=== PATIENT | female | born 1945 | race Caucasian/White ===

== ENCOUNTER 2016-09-24 11:32 | Observation (INO) | payer MEDICARE, OTHER ==
[2016-09-24] MEDS ORDERED: Meclizine TAB* 12.5 MG PO ONE (12:11)
[2016-09-24 12:34] LABS: Hematocrit 41 % (35-47); Hemoglobin 13.1 g/dl (12.0-16.0); Mean Corpuscular HGB Conc 32 g/dl (31-36); Mean Corpuscular Hemoglobin 24 pg (27-31); Mean Corpuscular Volume 75 fL (80-97); Mean Platelet Volume 9 um3 (7.4-10.4); Red Blood Count 5.37 10^6/ul (4.0-5.4); Red Cell Distribution Width 16 % (10.5-15); White Blood Count 7.1 10^3/ul (3.5-10.8)
[2016-09-24 12:36] LABS: Urine Bilirubin Negative (Negative); Urine Glucose Negative (Negative); Urine Nitrite Negative (Negative)
[2016-09-24] MEDS: NS 0.9% 1000 ML* 2,000 ML IV ONE (12:38)
[2016-09-24 12:46] LABS: Albumin 4.7 g/dL (3.2-5.2); BUN/Creatinine Ratio 20.5 (8-20); C Reactive Protein 11.06 mg/L (< 5.00); Calcium 9.7 mg/dL (8.6-10.3); EGFR African American 93.1 (>60); EGFR Non-African American 72.4 (>60); Globulin 2.8 g/dL (2-4); Magnesium 2.2 mg/dL (1.9-2.7); Potassium 4.3 mmol/L (3.5-5.0); Total Bilirubin 0.4 mg/dL (0.2-1.0); Total Protein 7.5 g/dL (6.4-8.9)
--- NOTE | 2016-09-24 12:47 | RAD ---
INDICATION: Left visual field loss, evaluate for CVA and hemorrhage. COMPARISON: Comparison is made with a prior CT of the brain from April 07, 2004. TECHNIQUE: Contiguous axial sections of the brain were obtained from the skull base to the vertex without contrast. FINDINGS: The ventricles, cisterns and sulci are enlarged consistent with diffuse atrophy. There are multiple focal areas of decreased density in the subcortical and periventricular white matter suggestive of moderate to severe chronic small vessel ischemic changes. There is no evidence for hemorrhage. No significant focal osseous abnormality is seen. The visualized portion of the paranasal sinuses and mastoid air cells appear clear. IMPRESSION: 1. NO EVIDENCE FOR GROSS ACUTE INFARCT, MASS EFFECT OR HEMORRHAGE. 2. ATROPHY AND FINDINGS SUGGESTIVE OF MODERATE TO SEVERE CHRONIC SMALL VESSEL ISCHEMIC CHANGES.
[2016-09-24 12:55] LABS: TSH (Thyroid Stimulating Horm) 0.95 mcIU/mL (0.34-5.60)
--- NOTE | 2016-09-24 12:57 | RAD ---
INDICATION: Cough shortness of breath. COMPARISON: Comparison is made with a prior study from July 03, 2014. TECHNIQUE: A portable view of the chest was obtained. FINDINGS: There is a dual-chamber transvenous pacemaker present. The patient is status post sternotomy and cardiac valve surgery. The heart is within normal limits in size for this portable exam. The lungs are underinflated. There is a small focal infiltrate at the right lung base. No pleural effusion is seen. IMPRESSION: SMALL RIGHT BASILAR INFILTRATE.
[2016-09-24] MEDS ORDERED: Levofloxacin 750 MG IVPREMIX(* 750 MG/150 ML BAG IVPB ONE (13:28)
[2016-09-24] MEDS ORDERED: Azithromycin IV(*) 500 MG in NS 0.9% 250 ML* 250 ML IVPB ONE (14:11)
[2016-09-24] MEDS ORDERED: cefTRIAXone(*) 1 GM in NS 0.9% 50 ML* 50 ML IVPB ONE (14:11)
[2016-09-24] MEDS ORDERED: Temazepam CAP* 15 MG PO PRN (14:53)
[2016-09-24] MEDS ORDERED: Albuterol/Ipratropium NEB.SOL* Albuterol 2.5 MG/Ipratropium 0.5 MG 3 ML INH PRN (14:53)
[2016-09-24] MEDS ORDERED: Acetaminophen TAB* 325 MG PO PRN (14:53)
[2016-09-24] MEDS ORDERED: methylPREDNISolone SOD SUCC* 125 MG 2 ML VIAL IV ONE (14:55)
[2016-09-24] MEDS ORDERED: Levalbuterol 1.25MG/0.5ML NEB INH PRN (14:59)
--- NOTE | 2016-09-24 15:37 | ED ---
Binta Sheldon Rebecca, scribed for Bowen Thayer MD on 09/24/16 at 1202 . Dizziness - HPI Summary HPI Summary: Pt is a 71 y/o F BIBA who presents to ED c/o dizziness. Dizziness began suddenly this morning at 1000 while standing up and has been constant since onset. Dizziness characterized as the room spinning. Sx aggravated by sitting up and alleviated by nothing. Additionally c/o blurred vision/vision loss in the L eye, left JVD and unsteady gait. C/o diaphoresis, cough, wheezing, rhinorrhea and melena. Reports SOB characterized as moderate dyspnea at rest. Denies CP, slurred speech, weakness in any extremities, nausea and MONACO. Does not experience chest tightness or pressure when walking. Is on Pradaxa (blood thinner). PMHx COPD, breast CA, does not have a port in place. No PMHx TIA, CHF. FHx TIA. Dobby Loom Fixer is Dr. Alegria, PCP is Dr. Anand and Dr. Cisneros is oncologist. - History Of Current Complaint Chief Complaint: EDDizziness Stated Complaint: DIZZY, Time Seen by Provider: 09/24/16 11:49 Hx Obtained From: Patient Onset/Duration: Suddenly Timing: Constant Severity Initially: Moderate Severity Currently: Moderate Character: Room Spinning Aggravating Factor(s): Supine To Erect, Other - Standing Alleviating Factor(s): Nothing Associated Signs And Symptoms: Positive: Diaphoresis, SOB - dyspnea at rest, Unsteady Gait, Visual Changes - blurred vision/vision los in the L eye, Other: - Cough, wheezing, rhinorrhea, melena, L JVD, confusion; Denies wekaness and MONACO. Negative: Nausea, Chest Pain, Slurred Speech - Allergies/Home Medications Allergies/Adverse Reactions: Allergies Allergy/AdvReac Type Severity Reaction Status Date / Time Shellfish Allergy Allergy Severe Swelling Verified 09/24/16 12:11 Of Face,Lips,& Throat Warfarin [From Coumadin] Allergy Intermediate Hives Verified 09/24/16 12:11 Sulfa Drugs Allergy Mild Dizziness Verified 09/24/16 12:11 Levofloxacin [From Levaquin] Allergy Unknown Verified 09/24/16 13:46 Reaction Details NSAIDS Allergy Severe See Comment Uncoded 09/24/16 12:11 Adhesive Tape Allergy Mild Rash Uncoded 09/24/16 12:11 PROPANOLOL Allergy Unknown Uncoded 09/24/16 12:11 Reaction Details Home Medications: Home Medications Diltiazem HCl [Diltiazem HCl ER] 240 mg PO BID 09/24/16 [History Confirmed 09/24] Sertraline* [Zoloft*] 50 mg PO DAILY 09/24/16 [History Confirmed 09/24/16] PMH/Surg Hx/FS Hx/Imm Hx Endocrine/Hematology History: Reports: Hx Anticoagulant Therapy, Hx Anemia Denies: Hx Diabetes, Hx Thyroid Disease Cardiovascular History: Reports: Hx Auto Implanted Cardiovert Defib, Hx Congestive Heart Failure, Hx Hypertension, Hx Pacemaker/ICD, Hx Valvular Heart Disease - hx mitral valve replacement, Other Cardiovascular Problems/Disorders - mitral valve prolapse Denies: Hx Coronary Artery Disease Respiratory History: Reports: Hx Chronic Obstructive Pulmonary Disease (COPD), Hx Pneumonia, Hx Seasonal Allergies, Hx Sleep Apnea GI History: Reports: Hx Gastroesophageal Reflux Disease, Hx Hiatal Hernia, Other GI Disorders - hemorrhoids History: Reports: Hx Acute Renal Failure, Hx Renal Disease Musculoskeletal History: Reports: Hx Osteoporosis, Hx Scoliosis, Other Musculoskeletal History - plate in right ankle Sensory History: Reports: Hx Cataracts, Hx Contacts or Glasses Denies: Hx Glaucoma Opthamlomology History: Reports: Hx Cataracts, Hx Contacts or Glasses Denies: Hx Glaucoma Psychiatric History: Reports: Hx Anxiety, Hx Depression - Cancer History Cancer Type, Location and Year: BREAST CA s/p mastectomy Hx Chemotherapy: No Hx Radiation Therapy: No - Surgical History Surgery Procedure, Year, and Place: pace maker 2012, cataract x2, tonsilectomy. open heart surgery mitral valve replacement, cardiac ablations 2010. mastectomy 2010 (left side). lymphectomy. PLATE IN R ANKLE Hx Anesthesia Reactions: No - Immunization History Date of Tetanus Vaccine: unk Date of Influenza Vaccine: 2011 Infectious Disease History: No Infectious Disease History: Reports: Hx Clostridium Difficile - active CDT, Hx Hepatitis - CHILD Denies: Traveled Outside the [place] in Last 30 Days - Family History Known Family History: Positive: Other - TIA - Social History Alcohol Use: None Substance Use Type: Reports: None Smoking Status (MU): Former Smoker Type: Cigarettes Amount Used/How Often: 2 PPD Length of Time of Smoking/Using Tobacco: 15 years Have You Smoked in the Last Year: No Review of Systems Positive: Skin Diaphoresis Positive: Blurred Vision - blurred vision/vision loss in the L eye Positive: Nasal Discharge, Other - L JVD Negative: Chest Pain Positive: Shortness Of Breath - dyspnea at rest, Cough, Other - Wheezing Negative: Nausea Positive: other - Melena Positive: Other Neurological: Other - Dizziness (room spinning), unsteady gait Negative: Headache, Weakness, Slurred Speech All Other Systems Reviewed And Are Negative: Yes Physical Exam - Summary Physical Exam Summary: The patient is well-nourished in no acute distress and in no acute pain. The skin is warm and dry and skin color reflects adequate perfusion. Good skin turgor HEENT: The head is normocephalic and atraumatic. The pupils are equal and reactive and EOMI. Positive horizontal nystagmus. Gross visual acuity intact. The conjunctivae are clear and without drainage. Nares are patent and without drainage. Mouth reveals dry mucous membranes and the throat is without erythema and exudate. The external ears are intact. The ear canals are patent and without drainage. The tympanic membranes are intact. Neck is supple with full range of motion and non-tender. There are no carotid bruits. There is no neck vein distension. Respiratory: Chest is non-tender. Lungs are clear to auscultation and breath sounds are symmetrical and equal. Cardiovascular: Hear is regular rhythm and bradycardic. There is no murmur or rub auscultated. There is no peripheral edema and pulses are symmetrical and equal. Abdomen: The abdomen is soft and non-tender. There are normal bowel sounds heard in all four quadrants and there is no organomegaly palpated. Musculoskeletal: There is no back pain noted. Extremities are non-tender with full range of motion. There is good capillary refill. There is no peripheral edema or calf tenderness elicited. Neurological: When she sat up, she experienced vertigo. Patient is alert and oriented to person, place and time. The patient has symmetrical motor strength in all four extremities. Cranial nerves are grossly intact. Deep tendon reflexes are symmetrical and equal in all four extremities. No pronator drift. Finger to nose intact, heel to walsh intact. No facial droop. Negative Babinski. Good motor strength bilaterally in upper and lower extremities. No decreased sensation. Psychiatric: The patient has an appropriate affect and does not exhibit any anxiety or depression. Triage Information Reviewed: Yes Vital Signs On Initial Exam: Initial Vitals Temp Pulse Resp BP Pulse Ox 99.3 F 60 38 182/51 87 09/24/16 11:43 09/24/16 11:43 09/24/16 11:43 09/24/16 11:43 09/24/16 11:43 Vital Signs Reviewed: Yes Diagnostics - Vital Signs Vital Signs Temp Pulse Resp BP Pulse Ox 09/24/16 11:49 60 18 98 09/24/16 11:43 99.3 F 60 38 182/51 87 - Laboratory Lab Results: Lab Results 09/24/16 09/24/16 09/24/16 Range/Units 11:50 11:50 11:50 WBC 7.1 (3.5-10.8) 10^3/ul RBC 5.37 (4.0-5.4) 10^6/ul Hgb 13.1 (12.0-16.0) g/dl Hct 41 (35-47) % MCV 75 L (80-97) fL MCH 24 L (27-31) pg MCHC 32 (31-36) g/dl RDW 16 H (10.5-15) % Plt Count 181 (150-450) 10^3/ul MPV 9 (7.4-10.4) um3 Neut % (Auto) 80.0 (38-83) % Lymph % (Auto) 10.5 L (25-47) % Sibley % (Auto) 6.9 (1-9) % Eos % (Auto) 1.8 (0-6) % Baso % (Auto) 0.8 (0-2) % Absolute Neuts (auto) 5.7 (1.5-7.7) 10^3/ul Absolute Lymphs (auto) 0.7 L (1.0-4.8) 10^3/ul Absolute Monos (auto) 0.5 (0-0.8) 10^3/ul Absolute Eos (auto) 0.1 (0-0.6) 10^3/ul Absolute Basos (auto) 0.1 (0-0.2) 10^3/ul Absolute Nucleated RBC 0.01 10^3/ul Nucleated RBC % 0.2 INR (Anticoag Therapy) (0.89-1.11) APTT (26.0-36.3) seconds Sodium 139 (133-145) mmol/L Potassium 4.3 (3.5-5.0) mmol/L Chloride 104 (101-111) mmol/L Carbon Dioxide 27 (22-32) mmol/L Anion Gap 8 (2-11) mmol/L BUN 16 (6-24) mg/dL Creatinine 0.78 (0.51-0.95) mg/dL Est GFR ( Amer) 93.1 (>60) Est GFR (Non-Af Amer) 72.4 (>60) BUN/Creatinine Ratio 20.5 H (8-20) Glucose 105 H (70-100) mg/dL Lactic Acid (0.5-2.0) mmol/L Calcium 9.7 (8.6-10.3) mg/dL Magnesium 2.2 (1.9-2.7) mg/dL Total Bilirubin 0.40 (0.2-1.0) mg/dL AST 22 (13-39) U/L ALT 22 (7-52) U/L Alkaline Phosphatase 99 (34-104) U/L Total Creatine Kinase 40 (10-223) U/L Troponin I 0.00 (<0.04) ng/mL C-Reactive Protein 11.06 H (< 5.00) mg/L B-Natriuretic Peptide ( - 100) pg/mL Total Protein 7.5 (6.4-8.9) g/dL Albumin 4.7 (3.2-5.2) g/dL Globulin 2.8 (2-4) g/dL Albumin/Globulin Ratio 1.7 (1-3) TSH 0.95 (0.34-5.60) mcIU/mL Urine Color Colorless Urine Appearance Clear Urine pH 5.0 (5-9) Ur Specific [place] 1.004 L (1.010-1.030) Urine Protein Negative (Negative) Urine Ketones Negative (Negative) Urine Blood Negative (Negative) Urine Nitrate Negative (Negative) Urine Bilirubin Negative (Negative) Urine Urobilinogen Negative (Negative) Ur Leukocyte Esterase Negative (Negative) Urine Glucose Negative (Negative) 09/24/16 09/24/16 09/24/16 Range/Units 11:50 11:50 11:50 WBC (3.5-10.8) 10^3/ul RBC (4.0-5.4) 10^6/ul Hgb (12.0-16.0) g/dl Hct (35-47) % MCV (80-97) fL MCH (27-31) pg MCHC (31-36) g/dl RDW (10.5-15) % Plt Count (150-450) 10^3/ul MPV (7.4-10.4) um3 Neut % (Auto) (38-83) % Lymph % (Auto) (25-47) % Sibley % (Auto) (1-9) % Eos % (Auto) (0-6) % Baso % (Auto) (0-2) % Absolute Neuts (auto) (1.5-7.7) 10^3/ul Absolute Lymphs (auto) (1.0-4.8) 10^3/ul Absolute Monos (auto) (0-0.8) 10^3/ul Absolute Eos (auto) (0-0.6) 10^3/ul Absolute Basos (auto) (0-0.2) 10^3/ul Absolute Nucleated RBC 10^3/ul Nucleated RBC % INR (Anticoag Therapy) 1.24 H (0.89-1.11) APTT 61.6 H (26.0-36.3) seconds Sodium (133-145) mmol/L Potassium (3.5-5.0) mmol/L Chloride (101-111) mmol/L Carbon Dioxide (22-32) mmol/L Anion Gap (2-11) mmol/L BUN (6-24) mg/dL Creatinine (0.51-0.95) mg/dL Est GFR ( Amer) (>60) Est GFR (Non-Af Amer) (>60) BUN/Creatinine Ratio (8-20) Glucose (70-100) mg/dL Lactic Acid 1.1 (0.5-2.0) mmol/L Calcium (8.6-10.3) mg/dL Magnesium (1.9-2.7) mg/dL Total Bilirubin (0.2-1.0) mg/dL AST (13-39) U/L ALT (7-52) U/L Alkaline Phosphatase (34-104) U/L Total Creatine Kinase (10-223) U/L Troponin I (<0.04) ng/mL C-Reactive Protein (< 5.00) mg/L B-Natriuretic Peptide 85 ( - 100) pg/mL Total Protein (6.4-8.9) g/dL Albumin (3.2-5.2) g/dL Globulin (2-4) g/dL Albumin/Globulin Ratio (1-3) TSH (0.34-5.60) mcIU/mL Urine Color Urine Appearance Urine pH (5-9) Ur Specific [place] (1.010-1.030) Urine Protein (Negative) Urine Ketones (Negative) Urine Blood (Negative) Urine Nitrate (Negative) Urine Bilirubin (Negative) Urine Urobilinogen (Negative) Ur Leukocyte Esterase (Negative) Urine Glucose (Negative) Result Diagrams: 09/24/16 11:50 09/24/16 11:50 Lab Statement: Any lab studies that have been ordered have been reviewed, and results considered in the medical decision making process. - Radiology CXR Radiology Interpretation Completed By: Radiologist - SMALL RIGHT BASILAR INFILTRATE. - CT Brain CT CT Interpretation Completed By: Radiologist - IMPRESSION: 1. NO EVIDENCE FOR GROSS ACUTE INFARCT, MASS EFFECT OR HEMORRHAGE. 2. ATROPHY AND FINDINGS SUGGESTIVE OF MODERATE TO SEVERE CHRONIC SMALL VESSEL ISCHEMIC CHANGES. - EKG 1154 Cardiac Rate: Bradycardia - 60 bpm EKG Rhythm: Sinus Rhythm ST Segment: Normal - No ST elevations EKG Interpretation: No STEMI National Institutes Of Health - NIH Scale Level of Consciousness: Alert/Keenly Responsive Ask Patient the Month and His/Her Age: Both Correct Ask Pt to Open/Close Eyes and Rd Scientist/Release Non-Paretic Hand: Both Correctly Best Gaze (Only Horizontal Eye Movement): Normal Visual Field Testing: No Visual Loss Facial Paresis-Pt to Smile & Close Eyes or Grimace Symmetry: Normal/Symmetrical Motor Function - Right Arm: No Drift-Holds 10 Seconds Motor Function - Left Arm: No Drift-Holds 10 Seconds Motor Function - Right Leg: No Drift-Holds 10 Seconds Motor Function - Left Leg: No Drift-Holds 10 Seconds Limb Ataxia-Must be out of Proportion to Weakness Present: Absent Sensory (Use Pinprick to Test Arms/Legs/Trunk/Face): Normal Best Language (Describe Picture, Name Items): No Aphasia Dysarthria (Read Several Words): Normal Extinction and Inattention: No Abnormality Total Score: 0 Dizzy Course/Dx - Course Assessment/Plan: Pt is a 71 y/o F with a CC of dizziness since 1000 this morning , characterized as room spinning. Additionally c/o blurred vision/vision loss in the L eye, left JVD and unsteady gait. C/o confusion, diaphoresis, cough, wheezing, rhinorrhea and melena. Reports SOB characterized as moderate dyspnea at rest. Denies CP, slurred speech, weakness in any extremities, nausea and MONACO. Does not experience chest tightness or pressure when walking. Is on Pradaxa ( blood thinner). NIH stroke scale score of 0. Brain CT reveals no acute findings. CXR reveals small right basilar infiltrate. EKG reveals no STEMI. CRP 11.06. Discussed care of pt with Dr. Cardoza, hospitalist, who accepts pt for admission. Pt will be admitted with dx of right lower lobe PNA, dizziness, dehydration and TIA. - Diagnoses Differential Diagnosis/HQI/PQRI: CVA, Hypovolemia, Metabolic Abnormality, Transient Ischemic Attack, Other - pneumonia, vertigo Provider Diagnoses: Right lower lobe pneumonia, Vertigo, Dehydration, TIA (transient ischemic attack) - Provider Notifications Discussed Care Of Patient with: Dr. Cardoza, hospitalist, who accepts pt for admission. Time Discussed With Above Provider: 13:32 Discharge - Discharge Plan Condition: Good Disposition: ADMITTED TO [facility] documentation as recorded by the Binta becerra Rebecca accurately reflects the service I personally performed and the decisions made by me, Bowen Thayer MD.
[2016-09-24] MEDS: Diazepam TAB(*) 5 MG PO PRN ×2 (15:39→21:49)
[2016-09-24] MEDS: Furosemide TAB* 20 MG PO SCH (15:39)
[2016-09-24] MEDS: CMCS - Dabigatran CAP(NF) 150 MG CAP PO SCH (20:12)
[2016-09-24] MEDS: Diltiazem CD CAP* 240 MG PO SCH (20:13)
[2016-09-24] MEDS: DOXYcycline CAP(*) 100 MG PO SCH (20:14)
[2016-09-24] MEDS: Dofetilide CAP* 250 MCG PO SCH (20:14)
[2016-09-24] MEDS: Potassium Chlor TAB* 20 MEQ TAB.ER PO SCH (20:15)
[2016-09-24] MEDS: Magnesium Oxide TAB* 400 MG PO SCH (20:15)
[2016-09-24] MEDS ORDERED: Magnesium Oxide TAB* 400 MG PO SCH (21:00)
[2016-09-24] MEDS: Mometasone/Formoter 200/5 MDI INH SCH (21:07)
--- NOTE | 2016-09-25 00:16 | HP ---
HISTORY AND PHYSICAL:* ADDENDUM: MEDICATIONS: 1. Klor-Con 20 mEq 2 tabs twice a day, which is a total of 40 mEq twice a day. 2. The patient is also on mag ox 400 mg twice a day. [id number]/[facility] #: [id number] [facility]
--- NOTE | 2016-09-25 03:32 | HP ---
CC: Dr. Alegria; Dr. Ruiz HISTORY AND PHYSICAL: DATE OF ADMISSION: 09/24/16 PRIMARY CARE PROVIDER: Laurent Ruiz MD REPAIRER KILN CAR: Vikash Alegria DO CHIEF COMPLAINT: Dizziness. HISTORY OF PRESENT ILLNESS: Renetta Mora is a 71-year-old female with a history of paroxysmal a trial fibrillation, on Pradaxa, status post bioprosthetic valve replacement in the past who presents complaining of dizziness that occurred when she was standing up from a toilet seat. The patient st ated she has a history of oxygen-dependent COPD and uses 3 L at baseline. For the past several day s, she has been having nonproductive cough and she started using her nebulizer for wheezing, which s he usually does not do. Today, when she got up from the toilet seat, she started getting dizzy and was dizzy when walking, but better when she stopped moving. She stated that it felt like she was "o n a ship." It resolved by the time I saw the patient for evaluation. In addition to that, the patient stated that she has macular degeneration on the right eye and has h ad problems with blurry vision in the left eye. She stated that the blurry vision would be intermit tent in the past 2 months and despite her seeing research assoc, nothing was discovered. She state d that the blurry vision got worse in the left eye when she developed the dizziness and now it is sl ightly improved. The patient's chest x-ray showed possibility of right lower lobe infiltrate. Her CRP is mildly elev ated. She is wheezing on exam, noted to be in COPD exacerbation. Her neuro exam is nonfocal. She i s going to be placed on overnight observation with a diagnosis of dizziness. PAST MEDICAL AND SURGICAL HISTORY: 1. Status post bioprosthetic mitral valve replacement in August 2010. 2. History of severe pulmonary hypertension. 3. History of COPD, on oxygen at 3 L. 4. History of symptomatic paroxysmal atrial fibrillation. She still continues to occasionally get palpitations. The patient has 2 prior ablation attempts and currently is being kept in the rhythm w ith Tikosyn. 5. History of anxiety. 6. Gastroesophageal reflux disease. 7. An episode of C. diff colitis in the past. 8. History of breast cancer, status post left-sided mastectomy. 9. History of ankle surgery, ORIF of the right ankle. 10. Status post pacemaker placement with recent pacemaker review stating possibility of undersensin g atrially. The patient still has episodes of atrial fibrillation when reviewing her pacer interrog ation. 11. History of hysterectomy. MEDICATIONS: Include: 1. Cardizem CD 240 mg twice a day. 2. Diazepam 5 mg 2 times a day. 3. Protonix 40 mg daily. 4. Furosemide 60 mg daily. 5. Spiriva inhaler 1 inhalation daily. 6. Advair 500/50 1 puff b.i.d. 7. Oxygen at 3 L. 8. Prednisone 5 mg tablet every other day. 9. Xopenex nebulizer on a p.r.n. basis. 10. BiPAP at night. 11. Tikosyn 250 mcg every 12 hours. 12. Sertraline 50 mg every day. 13. Pradaxa 150 mg b.i.d. ALLERGIES: The patient has multiple allergies and sensitivities to medication and those include NON STEROIDAL ANTIINFLAMMATORY MEDICATIONS, SULFA, COUMADIN, TAPE, PROPAFENONE, AMIODARONE, LEVAQUIN, an d FLAGYL. FAMILY HISTORY: Mother with history of breast cancer. SOCIAL HISTORY: The patient has a history of 68-[id number]-lwan smoking, quit many years ago. She denies any alcohol or drug use. She lives with a friend. Her surrogate decision maker is her daughter, Chay wagoner. REVIEW OF SYSTEMS: Please see history of present illness. In addition to the above mentioned, the patient denies any chest pain. She ambulates without problems at baseline and independently. Curre ntly, she denies any dizziness. All the remaining 14 systems were reviewed with the patient and were otherwise negative. PHYSICAL EXAMINATION GENERAL: The patient is a very pleasant 71-year-old female who is not in acute distress. The patie nt is slightly tremulous and anxious. The patient is alert and oriented x3. VITAL SIGNS: Blood pressure of 148/45, the patient was not orthostatic when checking the patient's blood pressures for orthostatic hypotension; pulse of 60 and regular; respiratory rate 21; oxygen sa turation 99% on 2 L of oxygen nasal cannula; and temperature 99.3. HEENT: Head: Atraumatic, normocephalic. Eyes: Pupils equal, reactive to light and accommodation. Oropharynx clear. Mucosa moist. NECK: Supple. No JVD. No bruit bilaterally. RESPIRATORY: Distant breath sounds bilaterally with scant wheezes in bilateral lower and mid lung f ields. CARDIOVASCULAR: Regular rate and rhythm. No murmurs. ABDOMEN: Soft, nontender. Bowel sounds present in all 4 quadrants. EXTREMITIES: There is no edema. Pulses present 2+ bilaterally. No clubbing or cyanosis. NEUROLOGIC EVALUATION: The patient is slightly tremulous probably due to her chronic anxiety. She also missed a dose of Valium today. The patient is also a poor historian. Speech clear. Cranial n erves II through XII grossly intact. When evaluating visual higginbotham, the patient does not appear to have visual field deficit noted. She denies diplopia. There is no nystagmus on evaluation. Esieeh-ll-sgwa is not dysmetric bilaterally. There is no pronator drift. There is good hand data acquisition technician a nd good strength in bilateral upper extremities, it is 5/5. On evaluation of bilateral lower extremities, strength is 5/5. She has mildly ataxic wide gait, but as per her daughter who is watching the patient walk in front of me, that apparently is the patient 's baseline. Tygl-db-nbyv is not dysmetric bilaterally. Sensation is grossly intact. PSYCHIATRIC EVALUATION: Mildly anxious. No other abnormalities noted, pleasant and cooperative wit h evaluation. DIAGNOSTIC STUDIES/LAB DATA: White blood cell count of 7.1, hemoglobin of 13.1, hematocrit of 41, and platelets of 181. Sodium 139, potassium 4.3, chloride 104, carbon dioxide 27, BUN 16, and creatinine 0.78. Liver func tions were unremarkable. Troponin of 0. C-reactive protein of 11.06. TSH of 0.95. Urinalysis was unremarkable apart from low specific gravity of 1.004. Portable chest x-ray, impression: "Showed small right basilar infiltrate." Brain CT, impression: "No evidence of gross acute infarct, mass effect, or hemorrhage. Atrophy and findings suggestive of yheupmnh-ef-[id number] chronic small vessel ischemic changes." The patient's EKG showed what appears to be underlying sinus rhythm with a heart rate of 60 beats pe r minute. It appears that the pacer may be undersensing, which is a known abnormality noted on the patient's prior pacemaker review on 09/21/16. ASSESSMENT AND PLAN: A 71-year-old female who complained of positional unsteadiness and dizziness t hat appeared to have resolved after a dose of meclizine in the emergency department. The patient al so has had exacerbation of her chronic obstructive pulmonary disease and had been treating with [facility]. There is evidence of right lower lobe infiltrate on the chest x-ray. In regards to the patient's dizziness, it appears to have been due to benign positional vertigo and resolved after meclizine dose. There is no evidence of focal neurologic deficits. The patient does complain still of left eye problems, but apparently that had been intermittently ongoing for the or st 2 months. She does have history of macular degeneration on the right eye and recommendations for the patient to see her primary research assoc after discharge. Nevertheless, the patient is going to be placed on telemetry monitored bed with neuro checks every 2 hours. In regards to the patient's pneumonia, the patient is going to be placed on ceftriaxone and on doxyc ycline. She has no marked leukocytosis and is not toxic appearing. In regards to the patient's chronic obstructive pulmonary disease exacerbation, the patient is going to be placed on parenteral steroids today and started on prednisone tomorrow at an increased dose o f 50 mg daily. In regards to history of paroxysmal atrial fibrillation, currently, it appears that her pacer is und ersensing, which was reported on the patient's pacemaker interrogation at the end of August. We will continue observing on telemetry monitored bed. She has not had any symptoms of chest pain to [facility] angina. We will continue Tikosyn and Cardizem for history of paroxysmal atrial fibrillation as previously. For DVT prophylaxis, the patient is at high risk and we will continue outpatient Pradaxa. Code status is full. TIME SPENT: Approximately 67 minutes was spent on admission of this patient, more than half that ti me was spent [id number] with the patient during the interview and physical exam. [id number]/[facility] #: [id number]
[2016-09-25 05:04] LABS: Hematocrit 35 % (35-47); Hemoglobin 11.5 g/dl (12.0-16.0); Mean Corpuscular HGB Conc 33 g/dl (31-36); Mean Corpuscular Hemoglobin 25 pg (27-31); Mean Corpuscular Volume 75 fL (80-97); Mean Platelet Volume 9 um3 (7.4-10.4); Red Blood Count 4.62 10^6/ul (4.0-5.4); Red Cell Distribution Width 17 % (10.5-15); White Blood Count 4.8 10^3/ul (3.5-10.8)
[2016-09-25 05:13] LABS: BUN/Creatinine Ratio 22.7 (8-20); Calcium 9.2 mg/dL (8.6-10.3); EGFR African American 97.4 (>60); EGFR Non-African American 75.7 (>60)
[2016-09-25] MEDS ORDERED: Omeprazole CAP* 20 MG PO SCH (07:30)
[2016-09-25 07:54] VITALS: BP 145/57
[2016-09-25] MEDS: CMCS - Dabigatran CAP(NF) 150 MG CAP PO SCH (08:40)
[2016-09-25] MEDS: Diltiazem CD CAP* 240 MG PO SCH (08:40)
[2016-09-25] MEDS: DOXYcycline CAP(*) 100 MG PO SCH (08:40)
[2016-09-25] MEDS: Potassium Chlor TAB* 20 MEQ TAB.ER PO SCH (08:40)
[2016-09-25] MEDS: Dofetilide CAP* 250 MCG PO SCH (08:41)
[2016-09-25] MEDS: Magnesium Oxide TAB* 400 MG PO SCH (08:41)
[2016-09-25] MEDS: Furosemide TAB* 20 MG PO SCH (08:45)
[2016-09-25] MEDS ORDERED: Sertraline* 50 MG TAB PO SCH (09:00)
[2016-09-25] MEDS ORDERED: predniSONE TAB* 20 MG PO SCH (09:00)
[2016-09-25] MEDS ORDERED: Spiriva Inhaler DEVICE* 1 EACH DEVICE ONE (09:00)
[2016-09-25] MEDS ORDERED: Tiotropium CAP.INH* CAP.INH/18 MCG INH SCH (09:00)
[2016-09-25] MEDS: Mometasone/Formoter 200/5 MDI INH SCH (10:13)
[2016-09-25] MEDS: Diazepam TAB(*) 5 MG PO PRN (11:01)
--- NOTE | 2016-09-25 13:21 | DS ---
CC: Dr. Ruiz; Dr. Vikash Alegria; Dr. Cisneros DISCHARGE SUMMARY: DATE OF ADMISSION: 09/24/16 DATE OF DISCHARGE: 09/25/16 PRIMARY CARE DOCTOR: Dr. Ruiz. DISCHARGE DIAGNOSES: 1. Chronic obstructive pulmonary disease exacerbation. 2. Right lower lobe pneumonia. 3. Dizziness, most likely benign positional vertigo. 4. Transient visual disturbance. SECONDARY DIAGNOSES: 1. History of paroxysmal atrial fibrillation, status post 2 attempted ablations in the past. The p atdayana still occasionally gets atrial fibrillation and is symptomatic when it happens. 2. Status post mitral valve replacement in 2010. 3. History of severe pulmonary hypertension. 4. History of chronic obstructive pulmonary disease, oxygen dependent at 3 L. 5. Anxiety. 6. Gastroesophageal reflux disease. 7. History of breast cancer, status post left-sided mastectomy. 8. History of open reduction and internal fixation of the right ankle. 9. Pacemaker placement. 10. Hysterectomy. MEDICATIONS AT DISCHARGE: Unchanged from admission apart from increasing the patient's dose of predn isone to a taper. The patient is also going to be placed on 2 antibiotics orally for her pneumonia. 1. Prednisone 20 mg tablet, the patient used to take 3 tablets for 2 days, then 2 tablets for 2 day s, then 1 tablet for 2 days, then half tablet for 2 days, then go back to her usual prednisone dose of 5 mg every other day. 2. The patient also is going to be on Omnicef 300 mg b.i.d. for 6 days total. 3. Doxycycline 100 mg b.i.d. for 6 days total. Remaining medications are unchanged and include: 1. Diltiazem CD 240 mg twice a day. 2. Klor-Con 40 mEq twice a day. 3. Mag-Ox 400 mg twice a day. 4. Diazepam 5 mg t.i.d. 5. Protonix 40 mg daily. 6. Furosemide 60 mg daily. 7. Spiriva 1 inhalation daily. 8. Advair 500/50 one puff b.i.d. 9. Oxygen at 3 L continuously. 10. Xopenex nebulizer twice a day as needed. 11. BiPAP at night. 12. Tikosyn 250 mcg twice a day. 13. Zoloft 50 mg twice a day. 14. Pradaxa 150 mg twice a day. LABORATORY DATA AND STUDIES PERFORMED DURING THE HOSPITAL STAY: On 09/24/16, white blood cell count of 4.8, hemoglobin of 11.5, hematocrit of 35, and platelets of 179. Sodium was 138, potassium 4.0, chloride 102, carbon dioxide 30, BUN 17, creatinine 0.75. Portable chest x-ray. Impression: "Small right basilar infiltrate." HOSPITALIZATION COURSE: Ms. Mora is a 71-year-old female with history of severe COPD and severe pulmonary hypertension as well as paroxysmal atrial fibrillation, status post pacemaker placement w wilfrid presented to the hospital complaining of an episode of dizziness when she stood up from the toile t seat. She also noted her left eye to be blurry. Please note that the patient is a poor historian, but she explained that she has had problems with b ilateral vision issues for the past several months. Her lining sewer is attending to her right e ye visual issues with macular degeneration. She also had been complaining of left-sided blurry visi on off and on for the past 2 months. Yesterday, when she was evaluated, she stated that it lasted l onger than before. It resolved within hours. She does not have visual field deficits during the ev aluation. She also complained of dizziness that resolved after meclizine in the emergency department. The patient was noted to have right lower lobe infiltrate and wheezing significantly on exam. She w as placed on observation with diagnoses of COPD exacerbation and pneumonia. Due to her above-mentio jorge a episodes of dizziness and visual disturbances, she was placed on neuro checks throughout her hos pital stay. She continues to be paced on her telemetry monitored bed. During neuro checks, the nurses thought at one point that may be the patient had a slight left-sided weakness especially in the legs. The patient is right-hand dominant and left hand housing project manager was minimal ly weaker, which is consistent with right hand dominant person. At 7 a.m. on 09/25/16, the nurse noted that the patient may have had minimal weakness in the left le g. I evaluated the patient within approximately 30 minutes of the nurse notification. The patient herself did not complain of any weakness and she ambulated without any problems. When I evaluated t he patient, the patient has baseline tremor noted due to nebulizer treatments and deconditioning as well as anxiety. She did not have weakness in the left leg during my evaluation and I suspect that when she was more tremulous right after her nebulizer treatment, it may have occurred that she was i nconsistent on her evaluation of strength on left leg. Nevertheless, once again, I do not believe t hat was a true weakness since the patient had no complaints and repeat evaluation that was not consi stent with the nurses report. At discharge, the patient's wheezing improved. She ambulated without support approximately 200 feet . She has slightly wide gait which as per the patient's daughter who was present in the room is the patient's baseline. She is no longer dizzy and her blurry vision resolved. At discharge, the patient was recommended to follow up with Dr. Ruiz in approximately 4 to 7 days. The patient has an appointment with her lining sewer in 3 days and I recommended for the patient to definitely keep it and discuss with an lining sewer once again ongoing problems with left eye. The patient apparently has had those problems for 2 months now. The patient is going to be placed on prednisone taper and after taper is done, the patient is recomm ended to continue back on her prednisone at 5 mg every other day. Apart from 2 antibiotics that she is going to receive for a total of 6 days to complete a 7-day giacomo tment of her pneumonia, the remaining medications are unchanged. PHYSICAL EXAMINATION AT THE TIME OF DISCHARGE: Blood pressure 145/57, heart rate of 59 and regular, respiratory rate 18, oxygen saturation 95% on 3 L of oxygen nasal cannula, temperature of 98.3. Ge neral: The patient is a very pleasant 71- year-old female, who is in no acute distress. The patien t is alert and oriented x3, mildly tremulous throughout her evaluation. HEENT: Head: Atraumatic, normocephalic. Eyes: Pupils equal, reactive to light and accommodation. Oropharynx clear. Mucosa moist. Neck: Supple. No JVD, no bruit bilaterally. Cardiovascular: Regular rate and rhythm. No murmur. Respiratory: Distant breath sounds bilaterally with very scant wheezes, significantly impr eula from yesterday. Abdomen: Soft, nontender. Bowel sounds present in all 4 quadrants. Extremiti es: There is trace ankle edema bilaterally. Pulses +2 bilaterally. There is no clubbing or cyanosi s. Neuro Evaluation: Cranial nerves II through XII grossly intact. Motor strength is 5/5 bilatera lly. Wsqxqa-kw-zyei is not dysmetric bilaterally. There is no pronator drift. Deuu-mm-bosk is not dysmetric bilaterally. Gait is slightly wider, but no ataxia noted during evaluation of walking. Psychiatric Evaluation: Slightly anxious female with no evidence of depression, very pleasant and c ooperative with evaluation. Please note this is a short summary of the patient's hospital stay. Please refer to further medical records for details. TIME SPENT: Approximately 40 minutes was spent on the patient's discharge. [id number]/[facility] #: [id number]
[2016-09-25] MEDS ORDERED: cefTRIAXone VIAL(*) 1,000 MG in NS 0.9% 50 ML* 50 ML IVPB SCH (15:00)
[2016-09-25] MEDS ORDERED: Azithromycin IV(*) 250 MG in NS 0.9% 250 ML* 250 ML IVPB SCH (15:30)
== END 2016-09-25 11:15 | disposition home or self-care (01) ==
LOC: ED 11:32 → MEDTELE 13:45
PROVIDERS: ADMIT Internal Medicine; ATTEND Internal Medicine
DX: J44.1 Chronic obstructive pulmonary disease with (acute) exacerbation (principal); J18.9 Pneumonia, unspecified organism; R42 Dizziness and giddiness; H53.9 Unspecified visual disturbance; I48.91 Unspecified atrial fibrillation; K21.9 Gastro-esophageal reflux disease without esophagitis; F41.9 Anxiety disorder, unspecified; Z85.3 Personal history of malignant neoplasm of breast; Z95.0 Presence of cardiac pacemaker; Z79.899 Other long term (current) drug therapy; Z79.01 Long term (current) use of anticoagulants; Z88.8 Allergy status to other drugs, medicaments and biological substances; Z88.2 Allergy status to sulfonamides; Z88.1 Allergy status to other antibiotic agents; Z95.2 Presence of prosthetic heart valve; I27.2 Other secondary pulmonary hypertension; Z87.891 Personal history of nicotine dependence; R94.31 Abnormal electrocardiogram [ECG] [EKG]; I48.0 Paroxysmal atrial fibrillation; K92.1 Melena
CPT/HCPCS: 36415; 70450; 71010; 80048; 80053; 81003; 82550; 83605; 83735; 83880; 84443; 84484; 85025; 85610; 85730; 86140; 87040; 93005; 94640; 94760; 96361; 96374; 99284; A9270-GY; G0378; J0456; J0696; J2930; J7512

== ENCOUNTER 2017-07-03 10:41 | Inpatient (IN) | payer MEDICARE ==
[2017-07-03] MEDS ORDERED: Albuterol/Ipratropium NEB.SOL* Albuterol 2.5 MG/Ipratropium 0.5 MG 3 ML INH ONE (11:06)
[2017-07-03] MEDS ORDERED: methylPREDNISolone 125 MG* 2 ML VIAL IV ONE (11:06)
[2017-07-03 11:26] LABS: ABS Basophils 0 10^3/ul (0-0.2); ABS Eosinophils 0 10^3/ul (0-0.6); ABS Lymphocytes 0.4 10^3/ul (1.0-4.8); ABS Monocytes 0.6 10^3/ul (0-0.8); ABS Neutrophils 7.8 10^3/ul (1.5-7.7); ABS Nucleated RBC 0 10^3/ul; Eosinophil % 0.4 % (0-6); Hematocrit 37 % (35-47); Hemoglobin 12.5 g/dl (12.0-16.0); Lymphocyte % 4.4 % (25-47); Mean Corpuscular HGB Conc 34 g/dl (31-36); Mean Corpuscular Hemoglobin 25 pg (27-31); Mean Corpuscular Volume 74 fL (80-97); Mean Platelet Volume 8 um3 (7.4-10.4); Nucleated Red Blood Cells % 0.1; Platelet Count 178 10^3/ul (150-450); Red Blood Count 4.99 10^6/ul (4.0-5.4); Red Cell Distribution Width 17 % (10.5-15); White Blood Count 8.9 10^3/ul (3.5-10.8)
[2017-07-03 11:35] LABS: INR 1.19 (0.77-1.02)
[2017-07-03 11:38] LABS: EGFR Non-African American 115.6 (>60)
--- NOTE | 2017-07-03 13:00 | RAD ---
Indication: Shortness of breath. Single frontal view of the chest performed at 1230 hours was reviewed. Comparison is made with previous exam dated September 24, 2016. Cardiomegaly is noted. Pacemaker leads are in place. Chronic interstitial disease is noted. No alveolar consolidation is noted. IMPRESSION: CARDIOMEGALY. VASCULAR CONGESTION. PACEMAKER LEADS ARE IN PLACE. NO CHANGES NOTED SINCE SEPTEMBER 24, 2016.
[2017-07-03] MEDS ORDERED: Acetaminophen TAB* 325 MG PO PRN (15:17)
[2017-07-03] MEDS ORDERED: Albuterol/Ipratropium NEB.SOL* Albuterol 2.5 MG/Ipratropium 0.5 MG 3 ML INH PRN (15:17)
[2017-07-03] MEDS ORDERED: Ondansetron INJ* 2 MG/ML VIAL IV PRN (15:17)
[2017-07-03] MEDS ORDERED: Furosemide IV* 10 MG/ML VIAL (40 MG) IV SLOW PU ONE (15:21)
[2017-07-03] MEDS ORDERED: hydrALAZINE IV* 20 MG/ML VIAL IV SLOW PU ONE (15:23)
[2017-07-03] MEDS ORDERED: Levalbuterol 1.25MG/0.5ML NEB INH PRN (15:23)
[2017-07-03 15:29] LABS: Urine Appearance Clear; Urine Blood 1+ (Negative); Urine Color Straw; Urine Ketones Negative (Negative); Urine Protein Negative (Negative); Urine Specific Gravity 1.006 (1.010-1.030); Urine Urobilinogen Negative (Negative)
[2017-07-03] MEDS ORDERED: hydrALAZINE IV* 20 MG/ML VIAL IV SLOW PU PRN (15:34)
[2017-07-03] MEDS: Diazepam TAB(*) 5 MG PO PRN ×2 (15:53→21:32)
[2017-07-03] MEDS ORDERED: Enoxaparin(*) 40 MG/0.4 ML SYR SUBCUT SCH (16:00)
--- NOTE | 2017-07-03 18:04 | ED ---
Valeri Sheldon Julia, scribed for Igor Arteaga MD on 07/03/17 at 1141 . Shortness of Breath - HPI Summary HPI Summary: This patient is a 71 year old F BIBA to [facility] accompanied by daughter with a chief complaint of SOB for past few weeks. An EMS reports patient was wheezing and treated with nebulizer on route to the ED. Patient denies changes in symptoms after this treatment. Patient has history of COPD and breast cancer. - History of Current Complaint Chief Complaint: EDRespiratoryDistress Hx Obtained From: Patient, EMS Onset/Duration: Lasting Weeks Alleviating Factors: Nothing Associated Signs & Symptoms: Wheezing - Allergy/Home Medications Allergies/Adverse Reactions: Allergies Allergy/AdvReac Type Severity Reaction Status Date / Time Shellfish Allergy Allergy Severe Swelling Verified 07/03/17 11:02 Of Face,Lips,& Throat Warfarin [From Coumadin] Allergy Intermediate Hives Verified 07/03/17 11:02 Sulfa Drugs Allergy Mild Dizziness Verified 07/03/17 11:02 Levofloxacin [From Levaquin] Allergy Unknown Verified 07/03/17 11:02 Reaction Details NSAIDS Allergy Severe See Comment Uncoded 07/03/17 11:02 Adhesive Tape Allergy Mild Rash Uncoded 07/03/17 11:02 PROPANOLOL Allergy Unknown Uncoded 07/03/17 11:02 Reaction Details Home Medications: Home Medications Diltiazem CD CAP* [Cardizem CD CAP*] 240 mg PO BID 07/03/17 [History Confirmed 07/03/17] Furosemide TAB* [Lasix TAB*] 40 - 80 mg PO DAILY PRN 07/03/17 [History Confirmed 07/03/17] predniSONE TAB* [Deltasone TAB*] 5 mg PO EVERY OTHER DAY 07/03/17 [History Confirmed 07/03/17] PMH/Surg Hx/FS Hx/Imm Hx Endocrine/Hematology History: Reports: Hx Anticoagulant Therapy, Hx Anemia Denies: Hx Diabetes, Hx Thyroid Disease Cardiovascular History: Reports: Hx Auto Implanted Cardiovert Defib, Hx Congestive Heart Failure, Hx Hypertension, Hx Pacemaker/ICD, Hx Valvular Heart Disease - hx mitral valve replacement, Other Cardiovascular Problems/Disorders - mitral valve prolapse Denies: Hx Coronary Artery Disease Respiratory History: Reports: Hx Chronic Obstructive Pulmonary Disease (COPD), Hx Pneumonia, Hx Seasonal Allergies, Hx Sleep Apnea GI History: Reports: Hx Gastroesophageal Reflux Disease, Hx Hiatal Hernia, Other GI Disorders - hemorrhoids History: Reports: Hx Acute Renal Failure, Hx Renal Disease Musculoskeletal History: Reports: Hx Osteoporosis, Hx Scoliosis, Other Musculoskeletal History - plate in right ankle Sensory History: Reports: Hx Cataracts, Hx Contacts or Glasses Denies: Hx Glaucoma, Hx Hearing Aid Opthamlomology History: Reports: Hx Cataracts, Hx Contacts or Glasses Denies: Hx Glaucoma Psychiatric History: Reports: Hx Anxiety, Hx Depression - Cancer History Cancer Type, Location and Year: BREAST CA s/p mastectomy Hx Chemotherapy: No Hx Radiation Therapy: No - Surgical History Surgery Procedure, Year, and Place: pace maker 2012, cataract x2, tonsilectomy. open heart surgery mitral valve replacement, cardiac ablations 2010. mastectomy 2010 (left side). lymphectomy. PLATE IN R ANKLE Hx Anesthesia Reactions: No - Immunization History Date of Tetanus Vaccine: unk Date of Influenza Vaccine: 2011 Infectious Disease History: Yes Infectious Disease History: Reports: Hx Clostridium Difficile - active CDT, Hx Hepatitis - CHILD Denies: Traveled Outside the [place] in Last 30 Days - Family History Known Family History: Positive: Other - TIA - Social History Alcohol Use: None Substance Use Type: Reports: None Hx Tobacco Use: Yes Smoking Status (MU): Former Smoker Type: Cigarettes Amount Used/How Often: 2 PPD Length of Time of Smoking/Using Tobacco: 15 years Have You Smoked in the Last Year: No Review of Systems Negative: Fever Positive: Shortness Of Breath, Other - wheezing All Other Systems Reviewed And Are Negative: Yes Physical Exam - Summary Physical Exam Summary: Appearance: The patient is well-nourished in no acute distress and in no acute pain. Skin: The skin is warm and dry and skin color reflects adequate perfusion. HEENT: The head is normocephalic and atraumatic. The pupils are equal and reactive. The conjunctivae are clear and without drainage. Nares are patent and without drainage. Mouth reveals moist mucous membranes and the throat is without erythema and exudate. The external ears are intact. The ear canals are patent and without drainage. The tympanic membranes are intact. Neck: the neck is supple with full range of motion and non-tender. There are no carotid bruits. There is no neck vein distension. Respiratory: Chest is non-tender. Wheezes are present bilaterally and breath sounds are decreased. AP chest diameter is decreased. Patient is tachypneic Cardiovascular: Heart is regular rate and rhythm. There is no murmur or rub auscultated. There is no peripheral edema and pulses are symmetrical and equal. Abdomen: The abdomen is soft and non-tender. There are normal bowel sounds heard in all four quadrants and there is no organomegaly palpated. Musculoskeletal: There is no back tenderness noted. Extremities are non-tender with full range of motion. There is good capillary refill. There is no peripheral edema or calf tenderness elicited. Neurological: Patient is alert and oriented to person, place and time. The patient has symmetrical motor strength in all four extremities. Cranial nerves are grossly intact. Deep tendon reflexes are symmetrical and equal in all four extremities. Psychiatric: The patient has an appropriate affect and does not exhibit any anxiety or depression Triage Information Reviewed: Yes Vital Signs On Initial Exam: Initial Vitals Temp Pulse Resp BP Pulse Ox 98.1 F 76 27 184/57 94 07/03/17 10:56 07/03/17 10:56 07/03/17 10:56 07/03/17 10:56 07/03/17 10:56 Vital Signs Reviewed: Yes - Karolyn Coma Scale Coma Scale Total: 15 Diagnostics - Vital Signs Vital Signs Temp Pulse Resp BP Pulse Ox 07/03/17 11:27 173/58 07/03/17 11:24 68 98 07/03/17 11:22 95 07/03/17 11:13 69 20 98 07/03/17 11:01 27 07/03/17 10:56 98.1 F 76 27 184/57 94 - Laboratory Lab Results: Lab Results 07/03/17 Range/Units 11:15 WBC 8.9 (3.5-10.8) 10^3/ul RBC 4.99 (4.0-5.4) 10^6/ul Hgb 12.5 (12.0-16.0) g/dl Hct 37 (35-47) % MCV 74 L (80-97) fL MCH 25 L (27-31) pg MCHC 34 (31-36) g/dl RDW 17 H (10.5-15) % Plt Count 178 (150-450) 10^3/ul MPV 8 (7.4-10.4) um3 Neut % (Auto) 88.1 H (38-83) % Lymph % (Auto) 4.4 L (25-47) % [place] % (Auto) 7.0 (1-9) % Eos % (Auto) 0.4 (0-6) % Baso % (Auto) 0.1 (0-2) % Absolute Neuts (auto) 7.8 H (1.5-7.7) 10^3/ul Absolute Lymphs (auto) 0.4 L (1.0-4.8) 10^3/ul Absolute Monos (auto) 0.6 (0-0.8) 10^3/ul Absolute Eos (auto) 0 (0-0.6) 10^3/ul Absolute Basos (auto) 0 (0-0.2) 10^3/ul Absolute Nucleated RBC 0 10^3/ul Nucleated RBC % 0.1 Result Diagrams: 07/03/17 11:15 07/03/17 11:15 Lab Statement: Any lab studies that have been ordered have been reviewed, and results considered in the medical decision making process. - Radiology CXR Radiology Interpretation Completed By: Radiologist - CARDIOMEGALY. VASCULAR CONGESTION. PACEMAKER LEADS ARE IN PLACE. NO CHANGES NOTED SINCE SEPTEMBER 24, 2016. ED Physician has reviewed this report. - EKG 11:11 Cardiac Rate: NL EKG Rhythm: Sinus Rhythm - at 68 BPM EKG Interpretation: paced with dual pacemaker Course/Dx - Course Course Of Treatment: Ms. Mora presented with SOB. She has been battling it for several weeks and has had at least one course of antibiotics. She has also had her chronic prednisone increased. She was working quite hard on arrival and improved with nebs and solumedrol but was still working too hard for D/C. - Diagnoses Provider Diagnoses: COPD exacerbation Discharge - Discharge Plan Condition: Stable Disposition: ADMITTED TO [facility] documentation as recorded by the Valeri becerra Julia accurately reflects the service I personally performed and the decisions made by me, Igor Arteaga MD.
[2017-07-03] MEDS: Mometasone/Formoter 200/5 MDI INH SCH (19:55)
--- NOTE | 2017-07-03 19:59 | HP ---
CC: Dr. Ruiz * ADMISSION HISTORY AND PHYSICAL: DATE OF ADMISSION: 07/03/17 PRIMARY CARE PROVIDER: Dr. Ruiz. HEALTHCARE PROXY: Jackeline Mora, her daughter. CODE STATUS: Full, discussed with the patient and her daughter. SOURCE OF INFORMATION: History obtained from interview with the patient and her daughter, review of past medical records. RELIABILITY: Fair. CHIEF COMPLAINT: Shortness of breath. HISTORY OF PRESENT ILLNESS: This is a 71-year-old female, past medical history including COPD with chronic respiratory failure on 3 L home oxygen and chronic every other day steroids. First daughter noticed an increased shortness of breath like there was a knot in her back on June 15 for which she was prescribed antibiotics with no improvement. She notes the pain in her back migrated between her arms and her back and was associated with cough and increasing shortness of breath. She received a second round of antibiotics, but had diarrhea and discontinued her antibiotics. Over the same time from the to today, she had increasing shortness of breath. She has been increasing her oxygen at home. She has increased dyspnea on exertion, decreased from 5 to 10 feet with shortness of breath down to just several feet. She has had shaking chills, nausea without emesis, diarrhea, decreased oral intake, decreased sleep and energy. She has been taking Lasix, but has had difficulty cutting them up. She has been attempted to take 60 mg daily by splitting 80 mg into a 40 and a 20, but has instead only been taking 40 mg daily. She has noticed decreased urine output associated with dysuria and urgency and her daughter has noticed some confusion described as giving answers that are not always correct. She notes that she sleeps with BiPAP with settings of 11/9; however, has been unsuccessfully using it for the last couple of days because of increased cough. She has developed sputum that is yellow-white and increased in volume. When seen in the emergency room, she feels short of breath and not coughing and generally feels better since presenting to the emergency room. Additionally, she notes prior to presenting to the emergency room today, she was going to see her primary care provider; however, when she got in the car she was noted to be tachycardiac and her oxygen decreased to 66% for which her daughter activated EMS. Additionally, the patient reported burning on urinating as well as urgency. PAST MEDICAL HISTORY: Includes COPD with chronic respiratory failure on 3 L home oxygen, atrial fibrillation with 2 failed attempted ablations, mitral valve replacement in 2011, pulmonary hypertension, reportedly moderate to severe anxiety, GERD, breast cancer status post left mastectomy in 2011, right ankle ORIF, permanent pacemaker placement, hysterectomy, macular degeneration, and hypertension. HOME MEDICATIONS: Include: 1. Prednisone 5 mg every other day. 2. Diltiazem CD 240 mg twice daily. 3. Dabigatran 150 mg twice daily. 4. Xopenex 1.25 mg every 6 hours as needed. 5. Lasix 40 to 80 mg, she has been trying to take 60 mg daily. 6. Advair 500/50 one puff twice daily. 7. Tikosyn 250 mcg twice daily. 8. Diazepam 5 mg 3 times a day as needed for anxiety. 9. Zoloft 50 mg daily. 10. Potassium chloride 40 mEq twice daily. 11. Pantoprazole 40 mg daily. 12. Magnesium oxide 400 mg twice daily. 13. Tiotropium 1 cap inhaled daily. ALLERGIES: Include SHELLFISH, COUMADIN, SULFA, LEVOFLOXACIN, NSAIDS, ADHESIVE TAPE, and PROPRANOLOL. FAMILY HISTORY: Mother, father, brother, and sister all had COPD. SOCIAL HISTORY: Quit smoking 30 years prior. Previously smoked 3 packs per day for 30 years. No history of alcohol. Lives with a friend who also works, so largely home alone during the day. REVIEW OF SYSTEMS: As per HPI, otherwise all other systems negative. PHYSICAL EXAMINATION GENERAL: Sitting in bed, talks in full sentences, pleasant, in no apparent distress. VITAL SIGNS: In the emergency room, blood pressure is ranging from 164 to 190/ 51 to 61, heart rate 65, respiratory rate is 26, T-max 98.1. She is 93 on 5 L oxygen. HEENT: Oropharynx is clear. She has dry mucous membranes. Sclerae are anicteric. NECK: She has elevated JVD at the angle of her jaw. She has no cervical or supraclavicular lymphadenopathy. LUNGS: Diminished breath sounds throughout. Faint rales in bilateral bases. HEART: Sounds are distant and regular. ABDOMEN: Soft, nontender, and nondistended. EXTREMITIES: Warm and well perfused without clubbing, cyanosis, or edema. She has 2+ peripheral pulses in her radial pulses, less than 2 second cap refill. NEUROLOGIC: She is alert and oriented x3. Her cranial nerves II through XII are intact. She has no apparent anxiety, agitation, or depression. DIAGNOSTIC STUDIES/LAB DATA: Pertinent labs reviewed. White blood cell count 8.9, hemoglobin 12.5, MCV of 74, platelets 178. INR 1.19. Sodium 130, potassium 4.1, chloride 93, BUN 8, creatinine 0.52, lactic acid 0.6, CRP 56, BNP 217. Influenza A and B are negative by rapid testing. PERTINENT IMAGING: Chest x-ray, cardiomegaly with interstitial edema. EKG, AV paced. ASSESSMENT AND PLAN: This is a 71-year-old female with past medical history of advanced chronic obstructive pulmonary disease with chronic respiratory failure , who presented to the hospital with approximately 2 weeks increasing shortness of breath, found with increased vascular congestion on chest x-ray and poor air movement based on clinical exam. 1. Acute on chronic hypoxic respiratory failure suspect in the sitting of chronic obstructive pulmonary disease exacerbation likely viral given the season and endemic viruses in the community. She received 125 mg of methylprednisone in the emergency room. We will continue 40 mg q.8 hours starting this evening. The patient has not been able to participate with her BiPAP secondary to cough. We will start her on BiPAP now for increased work of breathing and to give her work of breathing rest. I suspect her interstitial edema is contributing to her hypoxic respiratory failure and she will receive additionally 40 mg IV Lasix now. She has been unable to take her proper dose of 60 mg oral likely contributing to increased vascular congestion in conjunction with chronic obstructive pulmonary disease exacerbation, worsening pulmonary pressures. 2. Chronic obstructive pulmonary disease and acute exacerbation as noted above , continue steroids, Advair, tiotropium and albuterol as needed for breakthrough. 3. Hypertensive urgency. Hydralazine now in addition to Lasix. Continue hydralazine p.r.n. Monitor I's and O's. 4. Anxiety. Continue diazepam. 5. Microcytic anemia suspect in the setting of hypoxia. Consider additional iron testing when stable. 6. Urinary urgency coupled with dysuria. No other evidence for infection check urinalysis now. 7. DVT prophylaxis. Lovenox daily. [id number]/[facility] #: [id number] [facility]
[2017-07-03] MEDS: methylPREDNISolone SOD 40 MG* 1 ML VIAL IV SCH (21:23)
[2017-07-03] MEDS: Dofetilide CAP* 250 MCG PO SCH (21:26)
[2017-07-03] MEDS: CMCS: Dabigatran CAP(NF) 150 MG CAP PO SCH (21:26)
[2017-07-03] MEDS: Diltiazem CD CAP* 240 MG PO SCH (21:26)
[2017-07-03] MEDS: Potassium Chlor TAB* 20 MEQ TAB.ER PO SCH (21:26)
[2017-07-03] MEDS: Magnesium Oxide TAB* 400 MG PO SCH (21:26)
[2017-07-04 05:13] LABS: EGFR Non-African American 113.1 (>60)
[2017-07-04] MEDS: methylPREDNISolone SOD 40 MG* 1 ML VIAL IV SCH ×3 (05:15→22:07)
[2017-07-04] MEDS: Tiotropium CAP.INH* CAP.INH/18 MCG (USE ORDER SET !) INH SCH (08:10)
[2017-07-04] MEDS: Mometasone/Formoter 200/5 MDI INH SCH ×2 (08:11→19:29)
[2017-07-04] MEDS ORDERED: Spiriva Inhaler DEVICE* 1 EACH DEVICE INH ONE (09:00)
[2017-07-04] MEDS: Furosemide IV* 10 MG/ML 2 ML VIAL (20 MG) IV SLOW PU SCH (09:36)
[2017-07-04] MEDS: Potassium Chlor TAB* 20 MEQ TAB.ER PO SCH ×2 (10:02→10:37)
[2017-07-04] MEDS: CMCS: Dabigatran CAP(NF) 150 MG CAP PO SCH ×2 (10:02→22:02)
[2017-07-04] MEDS: Diltiazem CD CAP* 240 MG PO SCH ×2 (10:02→22:02)
[2017-07-04] MEDS: Sertraline* 50 MG TAB PO SCH (10:02)
[2017-07-04] MEDS: Dofetilide CAP* 250 MCG PO SCH ×2 (10:02→22:02)
[2017-07-04] MEDS: Magnesium Oxide TAB* 400 MG PO SCH ×2 (10:03→22:02)
[2017-07-04] MEDS: Diazepam TAB(*) 5 MG PO PRN ×3 (10:03→22:06)
[2017-07-04] MEDS: CMCS: Pantoprazole TAB (NF) 40 MG TAB PO SCH (10:05)
[2017-07-04] MEDS ORDERED: Furosemide IV* 10 MG/ML 2 ML VIAL (20 MG) IV SLOW PU ONE (11:40)
--- NOTE | 2017-07-04 16:33 | PN ---
Subjective Date of Service: 07/04/17 Interval History: Taken off BiPAP this AM and quickly developed SOB, respiratory failure and required replacing BiPAP after which she was comfortable again Further discussion reveals that she was using BiPAP more frequently during the day at home and not just at night It is unclear how long she has been using bipap during the day While on bipap she has no complaints, denies sob, N/V, LH, cough Objective Active Medications: Acetaminophen (Tylenol Tab*) 650 mg PO Q4H PRN PRN Reason: FEVER/PAIN Last Admin: 07/03/17 18:52 Dose: 650 mg Albuterol/Ipratropium (Duoneb (Albuterol 2.5 Mg/Ipratropium 0.5 Mg)) 1 neb INH [id number] AWAKE PRN PRN Reason: sob/wheexing Dabigatran (Pradaxa Cap(Nf)) 150 mg PO BID [facility] Last Admin: 07/04/17 10:02 Dose: 150 mg Diazepam (Valium Tab(*)) 5 mg PO TID PRN PRN Reason: ANXIETY Last Admin: 07/04/17 15:30 Dose: 5 mg Diltiazem HCl (Cardizem Cd Cap*) 240 mg PO BID [facility] Last Admin: 07/04/17 10:02 Dose: 240 mg Dofetilide (Tikosyn Cap*) 250 mcg PO Q12HR [facility] Last Admin: 07/04/17 10:02 Dose: 250 mcg Furosemide (Lasix Iv*) 20 mg IV SLOW PU DAILY [facility] Last Admin: 07/04/17 09:36 Dose: 20 mg Hydralazine HCl (Apresoline Iv*) 5 mg IV SLOW PU Q6H PRN PRN Reason: SYSTOLIC BP GREATER THAN: Levalbuterol HCl (Xopenex 1.25 Mg/0.5 Ml Neb.Mulu*) 1.25 mg INH Q6H PRN PRN Reason: SHORTNESS OF BREATH Magnesium Oxide (Magox 400 Tab*) 400 mg PO BID [facility] Last Admin: 07/04/17 10:03 Dose: 400 mg Methylprednisolone Sodium Succinate (Solu-Medrol 40 Mg) 40 mg IV Q8H [facility] Last Admin: 07/04/17 13:38 Dose: 40 mg Mometasone Furoate/Formoterol Fumar (Dulera 200/5 Mdi*) 2 puff INH BID [facility] Last Admin: 07/04/17 08:11 Dose: 2 puff Ondansetron HCl (Zofran Inj*) 4 mg IV Q4H PRN PRN Reason: NAUSEA/VOMITING Pantoprazole Sodium (Protonix Tab (Nf)) 40 mg PO DAILY [facility] Last Admin: 07/04/17 10:05 Dose: 40 mg Sertraline HCl (Zoloft*) 50 mg PO DAILY [facility] Last Admin: 07/04/17 10:02 Dose: 50 mg Tiotropium [place] (Spiriva Cap.Inh*) 1 cap INH QAM [facility] Last Admin: 07/04/17 08:10 Dose: 1 cap Vital Signs - 8 hr 07/04/17 07/04/17 07/04/17 08:56 10:03 11:52 Temperature 98.5 F Pulse Rate 75 65 Respiratory 24 18 Rate Blood Pressure 175/50 147/55 (mmHg) O2 Sat by Pulse 96 97 Oximetry 07/04/17 07/04/17 07/04/17 15:30 15:31 16:04 Temperature 98.5 F Pulse Rate 63 Respiratory 24 20 24 Rate Blood Pressure 161/62 (mmHg) O2 Sat by Pulse 96 Oximetry Oxygen Devices in Use Now: BiPAP Appearance: chronically ill, NAD Eyes: No Scleral Icterus, PERRLA Ears/Nose/Mouth/Throat: - - dry mm Neck: NL Appearance and Movements; NL JVP, Trachea Midline Respiratory: Symmetrical Chest Expansion and Respiratory Effort, - - poor air movement throughout, no adventitous lung sounds Cardiovascular: - - IRIR Abdominal: NL Sounds; No Tenderness; No Distention, No Hepatosplenomegaly Lymphatic: No Cervical Adenopathy Extremities: No Edema, No Clubbing, Cyanosis Skin: No Rash or Ulcers Neurological: Alert and Oriented x 3 Result Diagrams: 07/03/17 11:15 07/04/17 04:27 Additional Lab and Data: Lab Results 07/03/17 Range/Units 11:15 WBC 8.9 (3.5-10.8) 10^3/ul RBC 4.99 (4.0-5.4) 10^6/ul Hgb 12.5 (12.0-16.0) g/dl Hct 37 (35-47) % MCV 74 L (80-97) fL MCH 25 L (27-31) pg MCHC 34 (31-36) g/dl RDW 17 H (10.5-15) % Plt Count 178 (150-450) 10^3/ul MPV 8 (7.4-10.4) um3 Neut % (Auto) 88.1 H (38-83) % Lymph % (Auto) 4.4 L (25-47) % [place] % (Auto) 7.0 (1-9) % Eos % (Auto) 0.4 (0-6) % Baso % (Auto) 0.1 (0-2) % Absolute Neuts (auto) 7.8 H (1.5-7.7) 10^3/ul Absolute Lymphs (auto) 0.4 L (1.0-4.8) 10^3/ul Absolute Monos (auto) 0.6 (0-0.8) 10^3/ul Absolute Eos (auto) 0 (0-0.6) 10^3/ul Absolute Basos (auto) 0 (0-0.2) 10^3/ul Absolute Nucleated RBC 0 10^3/ul Nucleated RBC % 0.1 Assess/Plan/Problems-Billing Assessment: 71 yo F advanced COPD p/w respiratory failure in setting of COPD exacerbation - Patient Problems (1) COPD exacerbation Comment: suspect viral exacerbation c/w methylprednisolone 40mg Q8hrs dulera, spiriva If continues to require BiPAP continuously will need pulmonology consult - I am not sure if she is presenting with a sudden decline in respiratory status or has been hiding her slower decline and using bipap more continuously for some time. I discussed a palliative care consult which she is in agreement with. (2) Atrial fibrillation Comment: c/w dabigatren, dofetilide, diltiazem, magnesium, potassium (3) Anxiety Comment: diazepam PRN. (4) CHF (congestive heart failure) Comment: acute diastolic exacerbation in combination with increased pulmonary pressures c/w IV lasix 20 daily - adjust as needed (on 60 mg PO daily at home) (5) HTN (hypertension) Comment: diltiazem, lasix add 5mg norvasc 07/04 (6) DVT prophylaxis Comment: pradaxa
--- NOTE | 2017-07-04 17:27 | CONSULT ---
Palliative / Hospice Consult Ordering Provider: Sawyer Maya - Subjective Code Status: Full Code Advance Directives Location: No Advance Directives MOLST Part A Completed: Yes - DNR Date: 07/04/17 MOLST Part E Completed:: Yes - DNI/ etc. Date: 07/04/17 HCP Completed: Yes - daughter Carin Mora - History or Present Illness History or Present Illness: This 71 year old woman with severe COPD and chronic hypoxic respiratory failure , chronically on 3 LO2 and nocturnal BiPAP at home and QOD steroid augmentation , is here with COPD exacerbation. She has had progressive worsening of her dyspnea on exertion and most recently noted that while she used to be able to ambulate up to 10 feet without SOB, now she is disabled by dyspnea after just a few feet. On the day of admission her O2 sat had dropped to 66%. She is feeling improved now on non-invasive ventilation. She also has AF, a pacemaker, HTN, and pulmonary HTN. SHehas had breast cancer and underwent a mastectomy in 2010. She was hospitalized once and even on mechanical ventilation in 2010 with CHF prior to having a bioprosthetic mitral valve replacement. She tells me she does not want to be on a ventilator, or intubated, and she does not want CPR attempted if her heart fails. She is interested in hospice services and has had personal experience with hospice in the past. Her daughter and she are very close, as her daughter's father when Carin was 9 years old, and her daughter has difficulty accepting the severity of her mother's condition. Lab Values: Abnormal Lab Results 07/04/17 04:27 Sodium 128 L Potassium 4.6 Chloride 94 L Carbon Dioxide 25 Anion Gap 9 BUN 13 Creatinine 0.53 Est GFR ( Amer) 145.4 Est GFR (Non-Af Amer) 113.1 BUN/Creatinine Ratio 24.5 H Glucose 130 H Calcium 9.1 Laboratory Last Values WBC 8.9 10^3/ul (3.5-10.8) 07/03/17 11:15 RBC 4.99 10^6/ul (4.0-5.4) 07/03/17 11:15 Hgb 12.5 g/dl (12.0-16.0) 07/03/17 11:15 Hct 37 % (35-47) 07/03/17 11:15 MCV 74 fL (80-97) L 07/03/17 11:15 MCH 25 pg (27-31) L 07/03/17 11:15 MCHC 34 g/dl (31-36) 07/03/17 11:15 RDW 17 % (10.5-15) H 07/03/17 11:15 Plt Count 178 10^3/ul (150-450) 07/03/17 11:15 MPV 8 um3 (7.4-10.4) 07/03/17 11:15 Neut % (Auto) 88.1 % (38-83) H 07/03/17 11:15 Lymph % (Auto) 4.4 % (25-47) L 07/03/17 11:15 [place] % (Auto) 7.0 % (1-9) 07/03/17 11:15 Eos % (Auto) 0.4 % (0-6) 07/03/17 11:15 Baso % (Auto) 0.1 % (0-2) 07/03/17 11:15 Absolute Neuts (auto) 7.8 10^3/ul (1.5-7.7) H 07/03/17 11:15 Absolute Lymphs (auto) 0.4 10^3/ul (1.0-4.8) L 07/03/17 11:15 Absolute Monos (auto) 0.6 10^3/ul (0-0.8) 07/03/17 11:15 Absolute Eos (auto) 0 10^3/ul (0-0.6) 07/03/17 11:15 Absolute Basos (auto) 0 10^3/ul (0-0.2) 07/03/17 11:15 Absolute Nucleated RBC 0 10^3/ul 07/03/17 11:15 Nucleated RBC % 0.1 07/03/17 11:15 INR (Anticoag Therapy) 1.19 (0.77-1.02) H 07/03/17 11:15 Sodium 128 mmol/L (133-145) L 07/04/17 04:27 Potassium 4.6 mmol/L (3.5-5.0) 07/04/17 04:27 Chloride 94 mmol/L (101-111) L 07/04/17 04:27 Carbon Dioxide 25 mmol/L (22-32) 07/04/17 04:27 Anion Gap 9 mmol/L (2-11) 07/04/17 04:27 BUN 13 mg/dL (6-24) 07/04/17 04:27 Creatinine 0.53 mg/dL (0.51-0.95) 07/04/17 04:27 Est GFR ( Amer) 145.4 (>60) 07/04/17 04:27 Est GFR (Non-Af Amer) 113.1 (>60) 07/04/17 04:27 BUN/Creatinine Ratio 24.5 (8-20) H 07/04/17 04:27 Glucose 130 mg/dL (70-100) H 07/04/17 04:27 Lactic Acid 0.6 mmol/L (0.5-2.0) 07/03/17 11:15 Calcium 9.1 mg/dL (8.6-10.3) 07/04/17 04:27 Total Bilirubin 0.50 mg/dL (0.2-1.0) 07/03/17 11:15 AST 27 U/L (13-39) 07/03/17 11:15 ALT 30 U/L (7-52) 07/03/17 11:15 Alkaline Phosphatase 100 U/L (34-104) 07/03/17 11:15 Troponin I 0.03 ng/mL (<0.04) 07/03/17 11:15 C-Reactive Protein 56.55 mg/L (< 5.00) H 07/03/17 11:15 B-Natriuretic Peptide 217 pg/mL (-100) H 07/03/17 11:15 Total Protein 6.9 g/dL (6.4-8.9) 07/03/17 11:15 Albumin 4.4 g/dL (3.2-5.2) 07/03/17 11:15 Globulin 2.5 g/dL (2-4) 07/03/17 11:15 Albumin/Globulin Ratio 1.8 (1-3) 07/03/17 11:15 Urine Color Straw 07/03/17 14:12 Urine Appearance Clear 07/03/17 14:12 Urine pH 5.0 (5-9) 07/03/17 14:12 Ur Specific [place] 1.006 (1.010-1.030) L 07/03/17 14:12 Urine Protein Negative (Negative) 07/03/17 14:12 Urine Ketones Negative (Negative) 07/03/17 14:12 Urine Blood 1+ (Negative) H 07/03/17 14:12 Urine Nitrate Negative (Negative) 07/03/17 14:12 Urine Bilirubin Negative (Negative) 07/03/17 14:12 Urine Urobilinogen Negative (Negative) 07/03/17 14:12 Ur Leukocyte Esterase Negative (Negative) 07/03/17 14:12 Urine WBC (Auto) Absent (Absent) 07/03/17 14:12 Urine RBC (Auto) Trace(0-2/hpf) (Absent) 07/03/17 14:12 Urine Bacteria Absent (Absent) 07/03/17 14:12 Urine Glucose Negative (Negative) 07/03/17 14:12 Influenza A (Rapid) Negative (Negative) 07/03/17 14:36 Influenza B (Rapid) Negative (Negative) 07/03/17 14:36 - Objective Active Medications: Acetaminophen (Tylenol Tab*) 650 mg PO Q4H PRN PRN Reason: FEVER/PAIN Last Admin: 07/03/17 18:52 Dose: 650 mg Albuterol/Ipratropium (Duoneb (Albuterol 2.5 Mg/Ipratropium 0.5 Mg)) 1 neb INH [id number] AWAKE PRN PRN Reason: sob/wheexing Amlodipine Besylate (Norvasc Tab*) 5 mg PO DAILY [facility] Dabigatran (Pradaxa Cap(Nf)) 150 mg PO BID [facility] Last Admin: 07/04/17 10:02 Dose: 150 mg Diazepam (Valium Tab(*)) 5 mg PO TID PRN PRN Reason: ANXIETY Last Admin: 07/04/17 15:30 Dose: 5 mg Diltiazem HCl (Cardizem Cd Cap*) 240 mg PO BID [facility] Last Admin: 07/04/17 10:02 Dose: 240 mg Dofetilide (Tikosyn Cap*) 250 mcg PO Q12HR [facility] Last Admin: 07/04/17 10:02 Dose: 250 mcg Furosemide (Lasix Iv*) 20 mg IV SLOW PU DAILY [facility] Last Admin: 07/04/17 09:36 Dose: 20 mg Hydralazine HCl (Apresoline Iv*) 5 mg IV SLOW PU Q6H PRN PRN Reason: SYSTOLIC BP GREATER THAN: Levalbuterol HCl (Xopenex 1.25 Mg/0.5 Ml Neb.Mulu*) 1.25 mg INH Q6H PRN PRN Reason: SHORTNESS OF BREATH Magnesium Oxide (Magox 400 Tab*) 400 mg PO BID [facility] Last Admin: 07/04/17 10:03 Dose: 400 mg Methylprednisolone Sodium Succinate (Solu-Medrol 40 Mg) 40 mg IV Q8H [facility] Last Admin: 07/04/17 13:38 Dose: 40 mg Mometasone Furoate/Formoterol Fumar (Dulera 200/5 Mdi*) 2 puff INH BID [facility] Last Admin: 07/04/17 08:11 Dose: 2 puff Ondansetron HCl (Zofran Inj*) 4 mg IV Q4H PRN PRN Reason: NAUSEA/VOMITING Pantoprazole Sodium (Protonix Tab (Nf)) 40 mg PO DAILY [facility] Last Admin: 07/04/17 10:05 Dose: 40 mg Potassium Chloride (Klor Con Er Tab*) 40 meq PO DAILY [facility] Sertraline HCl (Zoloft*) 50 mg PO DAILY [facility] Last Admin: 07/04/17 10:02 Dose: 50 mg Tiotropium [place] (Spiriva Cap.Inh*) 1 cap INH QAM [facility] Last Admin: 07/04/17 08:10 Dose: 1 cap Vital Signs: Vital Signs: Temp Pulse Resp BP Pulse Ox 98.5 F 63 24 161/62 96 07/04/17 16:04 07/04/17 16:04 07/04/17 16:04 07/04/17 16:04 07/04/17 16:04 Patient Weight: Weight 142 lb 12.8 oz Intake and Output: Intake & Output 07/02/17 07/03/17 07/04/17 07/05/17 06:59 06:59 06:59 06:59 Intake Total 110 480 Output Total 0 0 Balance 110 480 Weight 142 lb 12.8 oz Intake: Oral 110 480 Output: Urine 0 0 Other: Estimated Void Medium # Bowel Movements 0 1 Estimated Stool Amount Medium # Voids 1 1 ADLs: Meal Record Start: 07/03/17 15: 50 Freq: DAILY@0900,1400,1800 Status: Active Protocol: Created 07/03/17 15:50 System (Rec: 07/03/17 15:50 System [email or web address]) Document 07/03/17 18:00 [id number] (Rec: 07/03/17 21:55 [id number] [id number]) Document 07/04/17 09:00 [id number] (Rec: 07/04/17 14:32 [id number]) Document 07/04/17 14:00 [id number] (Rec: 07/04/17 14:36 [id number]) Intake and Output Start: 07/03/17 10: 59 Freq: Status: Active Protocol: Created 07/03/17 10:59 System (Rec: 07/03/17 10:59 System [id number]) Intake and Output Start: 07/03/17 15: 50 Freq: DAILY@0600,1400,2200 Status: Active Protocol: Created 07/03/17 15:50 System (Rec: 07/03/17 15:50 System [email or web address]) Document 07/03/17 21:56 [id number] (Rec: 07/03/17 21:57 [id number] [id number]) Document 07/04/17 05:37 [id number] (Rec: 07/04/17 05:38 [id number]) Document 07/04/17 14:00 [id number] (Rec: 07/04/17 14:36 [id number]) General Impression: Pleasant woman unable to speak much as she has face mask for ventilation. Eyes: No Scleral Icterus, PERRLA Neck: NL Appearance and Movements; NL JVP, Trachea Midline Cardiovascular: - - cor irregularly irregular Respiratory: Symmetrical Chest Expansion and Respiratory Effort Abdominal: NL Sounds; No Tenderness; No Distention, No Hepatosplenomegaly Extremities: No Edema, No Clubbing, Cyanosis Neurological: Alert and Oriented x 3 - Assessment Assessment: This woman from [place] is quite realistic about her disease, and her daughter is also able to understand the futility of hospitalizations for failing pulmonary status if her mother has end-stage lung disease. The patient clearly states her desire to avoid interventions, to at all cost avoid mechanical ventilation, and she would like to be able to remain at home and receive hospice services there. Today, we completed a MOLST form as the patient was previously a full code, and her daughter concurred with the decision to be DNR/ DNI. They will speak more about hospice services and decide prior to the patient 's discharge home whether they want to enroll in the [place] hospice program. THanks for askingme to speak with this family about their options. - Plan Consult Plan (MU): Palliative - Time On Unit Date of Evaluation: 07/04/17 Hospice Consult Time in: 16:30 Hospice Consult Time Out: 17:30 Hospice Consult Time Total: 60
[2017-07-04] MEDS: amLODIPine TAB* 5 MG PO SCH (18:15)
[2017-07-05] MEDS: methylPREDNISolone SOD 40 MG* 1 ML VIAL IV SCH ×3 (04:52→22:38)
[2017-07-05] MEDS: Tiotropium CAP.INH* CAP.INH/18 MCG (USE ORDER SET !) INH SCH (08:18)
[2017-07-05] MEDS: Mometasone/Formoter 200/5 MDI INH SCH ×2 (08:18→20:53)
[2017-07-05] MEDS: Potassium Chlor TAB* 20 MEQ TAB.ER PO SCH (09:03)
[2017-07-05] MEDS: Furosemide IV* 10 MG/ML 2 ML VIAL (20 MG) IV SLOW PU SCH (09:04)
[2017-07-05] MEDS: CMCS: Dabigatran CAP(NF) 150 MG CAP PO SCH ×2 (09:04→22:38)
[2017-07-05] MEDS: Diltiazem CD CAP* 240 MG PO SCH ×2 (09:04→22:38)
[2017-07-05] MEDS: amLODIPine TAB* 5 MG PO SCH (09:04)
[2017-07-05] MEDS: Sertraline* 50 MG TAB PO SCH (09:04)
[2017-07-05] MEDS: Magnesium Oxide TAB* 400 MG PO SCH ×2 (09:04→22:38)
[2017-07-05] MEDS: CMCS: Pantoprazole TAB (NF) 40 MG TAB PO SCH (09:04)
[2017-07-05] MEDS: Diazepam TAB(*) 5 MG PO PRN ×3 (09:32→22:43)
[2017-07-05] MEDS: Dofetilide CAP* 250 MCG PO SCH ×2 (09:32→22:50)
--- NOTE | 2017-07-05 15:14 | PN ---
Subjective Date of Service: 07/05/17 Interval History: Seen with daughter at bedside Tolerated time off bipap but felt anxious and asked for it to be replaced. Noted that it was "anxiety" and not SOB that drover her to request bipap. Bipap removed at longer intervals throughout day. Denies SOB, CP, N/V, Relayed conversation with Dr. Shi and patient's decision to be DNR/I Objective Active Medications: Acetaminophen (Tylenol Tab*) 650 mg PO Q4H PRN PRN Reason: FEVER/PAIN Last Admin: 07/03/17 18:52 Dose: 650 mg Albuterol/Ipratropium (Duoneb (Albuterol 2.5 Mg/Ipratropium 0.5 Mg)) 1 neb INH [id number] AWAKE PRN PRN Reason: sob/wheexing Amlodipine Besylate (Norvasc Tab*) 5 mg PO DAILY [facility] Last Admin: 07/05/17 09:04 Dose: 5 mg Dabigatran (Pradaxa Cap(Nf)) 150 mg PO BID [facility] Last Admin: 07/05/17 09:04 Dose: 150 mg Diazepam (Valium Tab(*)) 5 mg PO TID PRN PRN Reason: ANXIETY Last Admin: 07/05/17 14:24 Dose: 5 mg Diltiazem HCl (Cardizem Cd Cap*) 240 mg PO BID [facility] Last Admin: 07/05/17 09:04 Dose: 240 mg Dofetilide (Tikosyn Cap*) 250 mcg PO Q12HR [facility] Last Admin: 07/05/17 09:32 Dose: 250 mcg Furosemide (Lasix Iv*) 20 mg IV SLOW PU DAILY [facility] Last Admin: 07/05/17 09:04 Dose: 20 mg Hydralazine HCl (Apresoline Iv*) 5 mg IV SLOW PU Q6H PRN PRN Reason: SYSTOLIC BP GREATER THAN: Levalbuterol HCl (Xopenex 1.25 Mg/0.5 Ml Neb.Mulu*) 1.25 mg INH Q6H PRN PRN Reason: SHORTNESS OF BREATH Magnesium Oxide (Magox 400 Tab*) 400 mg PO BID [facility] Last Admin: 07/05/17 09:04 Dose: 400 mg Methylprednisolone Sodium Succinate (Solu-Medrol 40 Mg) 40 mg IV Q8H [facility] Last Admin: 07/05/17 14:24 Dose: 40 mg Mometasone Furoate/Formoterol Fumar (Dulera 200/5 Mdi*) 2 puff INH BID [facility] Last Admin: 07/05/17 08:18 Dose: 2 puff Ondansetron HCl (Zofran Inj*) 4 mg IV Q4H PRN PRN Reason: NAUSEA/VOMITING Pantoprazole Sodium (Protonix Tab (Nf)) 40 mg PO DAILY [facility] Last Admin: 07/05/17 09:04 Dose: 40 mg Potassium Chloride (Klor Con Er Tab*) 40 meq PO DAILY [facility] Last Admin: 07/05/17 09:03 Dose: 40 meq Sertraline HCl (Zoloft*) 50 mg PO DAILY [facility] Last Admin: 07/05/17 09:04 Dose: 50 mg Tiotropium [place] (Spiriva Cap.Inh*) 1 cap INH QAM [facility] Last Admin: 07/05/17 08:18 Dose: 1 cap Vital Signs - 8 hr 07/05/17 07/05/17 07/05/17 07:31 07:50 09:32 Temperature 97.6 F Pulse Rate 59 Respiratory 18 20 22 Rate Blood Pressure 158/51 (mmHg) O2 Sat by Pulse 95 Oximetry 07/05/17 14:24 Temperature Pulse Rate Respiratory 20 Rate Blood Pressure (mmHg) O2 Sat by Pulse Oximetry Oxygen Devices in Use Now: BiPAP Appearance: chronically ill, on bipap, NAD Eyes: No Scleral Icterus, PERRLA Ears/Nose/Mouth/Throat: Clear Oropharnyx Neck: NL Appearance and Movements; NL JVP, Trachea Midline Respiratory: Symmetrical Chest Expansion and Respiratory Effort, - - increased airmovement throughout Cardiovascular: - - IRIR Abdominal: NL Sounds; No Tenderness; No Distention, No Hepatosplenomegaly Lymphatic: No Cervical Adenopathy Extremities: No Edema Skin: No Rash or Ulcers Neurological: Alert and Oriented x 3 Result Diagrams: 07/03/17 11:15 07/04/17 04:27 Additional Lab and Data: Lab Results 07/03/17 Range/Units 11:15 WBC 8.9 (3.5-10.8) 10^3/ul RBC 4.99 (4.0-5.4) 10^6/ul Hgb 12.5 (12.0-16.0) g/dl Hct 37 (35-47) % MCV 74 L (80-97) fL MCH 25 L (27-31) pg MCHC 34 (31-36) g/dl RDW 17 H (10.5-15) % Plt Count 178 (150-450) 10^3/ul MPV 8 (7.4-10.4) um3 Neut % (Auto) 88.1 H (38-83) % Lymph % (Auto) 4.4 L (25-47) % [place] % (Auto) 7.0 (1-9) % Eos % (Auto) 0.4 (0-6) % Baso % (Auto) 0.1 (0-2) % Absolute Neuts (auto) 7.8 H (1.5-7.7) 10^3/ul Absolute Lymphs (auto) 0.4 L (1.0-4.8) 10^3/ul Absolute Monos (auto) 0.6 (0-0.8) 10^3/ul Absolute Eos (auto) 0 (0-0.6) 10^3/ul Absolute Basos (auto) 0 (0-0.2) 10^3/ul Absolute Nucleated RBC 0 10^3/ul Nucleated RBC % 0.1 Assess/Plan/Problems-Billing Assessment: 71 yo F advanced COPD p/w respiratory failure in setting of COPD exacerbation - Patient Problems (1) COPD exacerbation Comment: Improving clinically and on exam suspect virus as etiology of exacerbation c/w methylprednisolone 40mg Q8hrs dulera, spiriva (2) Atrial fibrillation Comment: c/w dabigatren, dofetilide, diltiazem, magnesium, potassium (3) Anxiety Comment: diazepam PRN. (4) CHF (congestive heart failure) Comment: acute diastolic exacerbation in combination with increased pulmonary pressures c/w IV lasix 20 daily - adjust as needed (on 60 mg PO daily at home) (5) HTN (hypertension) Comment: diltiazem, lasix added 5mg norvasc 07/04 Increase norvasc to 10mg 07/06/17 (6) Goals of care, counseling/discussion Comment: appreciate hospice/palliative care assistance Pt very clear she would liek to be DNR/I but uncertain about role of hospice in her care at this time (7) DVT prophylaxis Comment: pradaxa
[2017-07-06] MEDS: methylPREDNISolone SOD 40 MG* 1 ML VIAL IV SCH ×2 (05:29→13:53)
[2017-07-06] MEDS: Tiotropium CAP.INH* CAP.INH/18 MCG (USE ORDER SET !) INH SCH (07:53)
[2017-07-06] MEDS: Mometasone/Formoter 200/5 MDI INH SCH ×2 (07:57→20:22)
[2017-07-06] MEDS: Diazepam TAB(*) 5 MG PO PRN ×3 (09:00→20:32)
[2017-07-06] MEDS: Potassium Chlor TAB* 20 MEQ TAB.ER PO SCH (09:02)
[2017-07-06] MEDS: Diltiazem CD CAP* 240 MG PO SCH ×2 (09:02→20:32)
[2017-07-06] MEDS: Magnesium Oxide TAB* 400 MG PO SCH ×2 (09:02→20:31)
[2017-07-06] MEDS: CMCS: Dabigatran CAP(NF) 150 MG CAP PO SCH ×2 (09:02→20:32)
[2017-07-06] MEDS: amLODIPine TAB* 5 MG PO SCH (09:03)
[2017-07-06] MEDS: Sertraline* 50 MG TAB PO SCH (09:04)
[2017-07-06] MEDS: CMCS: Pantoprazole TAB (NF) 40 MG TAB PO SCH (09:04)
[2017-07-06] MEDS: Dofetilide CAP* 250 MCG PO SCH ×2 (09:04→20:31)
[2017-07-06] MEDS: Furosemide IV* 10 MG/ML 2 ML VIAL (20 MG) IV SLOW PU SCH (09:08)
[2017-07-06] MEDS: Amoxicillin/Clavulanate TAB* 500 MG PO SCH ×2 (09:58→20:31)
--- NOTE | 2017-07-06 14:24 | PN ---
Progress Note - Progress Note Date of Service: 07/06/17 Note: Follow up visit with patient as she had panicked about her DNR status and asked for it to be reversed; somehow in this process her MOLST form, which had taken over an hour to complete, was "lost," likely either shredded or thrown out. This is an unacceptable alteration of medical records; once a MOLST form is done it is a permanent part of the record, even if it is voided and a new form is created. The patient later reiterated her desire for DNR/DNI status with Dr. Maya and with Bhupendra Kilgore. Bhupendra kindly spent some time with the patient today recreating her wishes on a MOLST form. This is now in her chart, and if it voided, the box on page 3 should be checked and a new form created. The patient also told me again today that she would like hospice services; [place] a referral to her local hospice organization from her PCP, and the hospice agency will decide if she is appropriate for their service. She is not a candidate at this time for the hospice residence. Thanks.
--- NOTE | 2017-07-06 18:42 | PN ---
Subjective Date of Service: 07/06/17 Interval History: Pt feels very SOB and concerned about low ambulatory status when she goes home. Spoke with DR. Shi and agreed to hospice at home Objective Active Medications: Acetaminophen (Tylenol Tab*) 650 mg PO Q4H PRN PRN Reason: FEVER/PAIN Last Admin: 07/03/17 18:52 Dose: 650 mg Albuterol/Ipratropium (Duoneb (Albuterol 2.5 Mg/Ipratropium 0.5 Mg)) 1 neb INH [id number] AWAKE PRN PRN Reason: sob/wheexing Amlodipine Besylate (Norvasc Tab*) 10 mg PO DAILY [facility] Last Admin: 07/06/17 09:03 Dose: 10 mg Amoxicillin/Clavulanate Potassium (Augmentin Tab*) 500 mg PO BID [facility] Last Admin: 07/06/17 09:58 Dose: 500 mg Dabigatran (Pradaxa Cap(Nf)) 150 mg PO BID [facility] Last Admin: 07/06/17 09:02 Dose: 150 mg Diazepam (Valium Tab(*)) 5 mg PO TID PRN PRN Reason: ANXIETY Last Admin: 07/06/17 17:06 Dose: 5 mg Diltiazem HCl (Cardizem Cd Cap*) 240 mg PO BID [facility] Last Admin: 07/06/17 09:02 Dose: 240 mg Dofetilide (Tikosyn Cap*) 250 mcg PO Q12HR [facility] Last Admin: 07/06/17 09:04 Dose: 250 mcg Furosemide (Lasix Iv*) 20 mg IV SLOW PU DAILY [facility] Last Admin: 07/06/17 09:08 Dose: 20 mg Hydralazine HCl (Apresoline Iv*) 5 mg IV SLOW PU Q6H PRN PRN Reason: SYSTOLIC BP GREATER THAN: Levalbuterol HCl (Xopenex 1.25 Mg/0.5 Ml Neb.Mulu*) 1.25 mg INH Q6H PRN PRN Reason: SHORTNESS OF BREATH Magnesium Oxide (Magox 400 Tab*) 400 mg PO BID [facility] Last Admin: 07/06/17 09:02 Dose: 400 mg Mometasone Furoate/Formoterol Fumar (Dulera 200/5 Mdi*) 2 puff INH BID [facility] Last Admin: 07/06/17 07:57 Dose: 2 puff Ondansetron HCl (Zofran Inj*) 4 mg IV Q4H PRN PRN Reason: NAUSEA/VOMITING Pantoprazole Sodium (Protonix Tab (Nf)) 40 mg PO DAILY [facility] Last Admin: 07/06/17 09:04 Dose: 40 mg Potassium Chloride (Klor Con Er Tab*) 40 meq PO DAILY [facility] Last Admin: 07/06/17 09:02 Dose: 40 meq Prednisone (Deltasone Tab*) 60 mg PO DAILY [facility] Sertraline HCl (Zoloft*) 50 mg PO DAILY [facility] Last Admin: 07/06/17 09:04 Dose: 50 mg Tiotropium [place] (Spiriva Cap.Inh*) 1 cap INH QAM [facility] Last Admin: 07/06/17 07:53 Dose: 1 cap Vital Signs - 8 hr 07/06/17 07/06/17 07/06/17 11:27 16:22 17:06 Temperature 98.4 F 97.8 F Pulse Rate 75 85 Respiratory 20 20 16 Rate Blood Pressure 150/54 156/84 (mmHg) O2 Sat by Pulse 92 93 Oximetry Oxygen Devices in Use Now: Nasal Cannula - at 6L Appearance: 71 yo F in nAD, aAOx3 Eyes: No Scleral Icterus, PERRLA Ears/Nose/Mouth/Throat: NL Teeth, Lips, Gums, Mucous Membranes Moist Neck: NL Appearance and Movements; NL JVP, Trachea Midline Respiratory: Symmetrical Chest Expansion and Respiratory Effort, - - very decreased breath sounds b/l Cardiovascular: NL Sounds; No Murmurs; No JVD, - - irregular Abdominal: NL Sounds; No Tenderness; No Distention, No Hepatosplenomegaly Lymphatic: No Cervical Adenopathy Extremities: No Clubbing, Cyanosis, - - trace pedal edema b/l Skin: No Nodules or Sclerosis Neurological: Alert and Oriented x 3, NL Muscle Strength and Tone Result Diagrams: 07/03/17 11:15 07/04/17 04:27 Additional Lab and Data: Lab Results 07/03/17 Range/Units 11:15 WBC 8.9 (3.5-10.8) 10^3/ul RBC 4.99 (4.0-5.4) 10^6/ul Hgb 12.5 (12.0-16.0) g/dl Hct 37 (35-47) % MCV 74 L (80-97) fL MCH 25 L (27-31) pg MCHC 34 (31-36) g/dl RDW 17 H (10.5-15) % Plt Count 178 (150-450) 10^3/ul MPV 8 (7.4-10.4) um3 Neut % (Auto) 88.1 H (38-83) % Lymph % (Auto) 4.4 L (25-47) % [place] % (Auto) 7.0 (1-9) % Eos % (Auto) 0.4 (0-6) % Baso % (Auto) 0.1 (0-2) % Absolute Neuts (auto) 7.8 H (1.5-7.7) 10^3/ul Absolute Lymphs (auto) 0.4 L (1.0-4.8) 10^3/ul Absolute Monos (auto) 0.6 (0-0.8) 10^3/ul Absolute Eos (auto) 0 (0-0.6) 10^3/ul Absolute Basos (auto) 0 (0-0.2) 10^3/ul Absolute Nucleated RBC 0 10^3/ul Nucleated RBC % 0.1 Assess/Plan/Problems-Billing Assessment: 71 yo F advanced COPD p/w respiratory failure in setting of COPD exacerbation - Patient Problems (1) COPD exacerbation Comment: Improving clinically and on exam suspect virus as etiology of exacerbation, but will start Augmentin plan to tx for 7 days methylprednisolone switched to prednisone dulera, spiriva (2) Atrial fibrillation Comment: c/w , dofetilide, diltiazem, magnesium, potassium , pradaxa rate controlled (3) CHF (congestive heart failure) Comment: acute diastolic exacerbation in combination with increased pulmonary pressures c/w IV lasix 20 daily - adjust as needed (on 60 mg PO daily at home) (4) Anxiety Comment: diazepam PRN. (5) DVT prophylaxis Comment: pradaxa Status and Disposition: inpatient, plan for PT/OT eval and possible d/c home with hospice in AM
[2017-07-07 05:28] LABS: ABS Basophils 0 10^3/ul (0-0.2); ABS Eosinophils 0 10^3/ul (0-0.6); ABS Lymphocytes 0.5 10^3/ul (1.0-4.8); ABS Monocytes 1.1 10^3/ul (0-0.8); ABS Neutrophils 9.6 10^3/ul (1.5-7.7); ABS Nucleated RBC 0 10^3/ul; Eosinophil % 0 % (0-6); Hematocrit 39 % (35-47); Hemoglobin 12.6 g/dl (12.0-16.0); Lymphocyte % 4.2 % (25-47); Mean Corpuscular HGB Conc 32 g/dl (31-36); Mean Corpuscular Hemoglobin 24 pg (27-31); Mean Corpuscular Volume 76 fL (80-97); Mean Platelet Volume 8 um3 (7.4-10.4); Nucleated Red Blood Cells % 0; Platelet Count 246 10^3/ul (150-450); Red Blood Count 5.15 10^6/ul (4.0-5.4); Red Cell Distribution Width 17 % (10.5-15); White Blood Count 11.2 10^3/ul (3.5-10.8)
[2017-07-07] MEDS: Tiotropium CAP.INH* CAP.INH/18 MCG (USE ORDER SET !) INH SCH (08:12)
[2017-07-07] MEDS: Mometasone/Formoter 200/5 MDI INH SCH (08:12)
[2017-07-07] MEDS: amLODIPine TAB* 5 MG PO SCH (08:37)
[2017-07-07] MEDS: Diltiazem CD CAP* 240 MG PO SCH (08:38)
[2017-07-07] MEDS: Amoxicillin/Clavulanate TAB* 500 MG PO SCH (08:38)
[2017-07-07] MEDS: Dofetilide CAP* 250 MCG PO SCH (08:38)
[2017-07-07] MEDS: CMCS: Dabigatran CAP(NF) 150 MG CAP PO SCH (08:38)
[2017-07-07] MEDS: Furosemide IV* 10 MG/ML 2 ML VIAL (20 MG) IV SLOW PU SCH (08:38)
[2017-07-07] MEDS: Magnesium Oxide TAB* 400 MG PO SCH (08:39)
[2017-07-07] MEDS: Sertraline* 50 MG TAB PO SCH (08:39)
[2017-07-07] MEDS: Potassium Chlor TAB* 20 MEQ TAB.ER PO SCH (08:39)
[2017-07-07] MEDS: CMCS: Pantoprazole TAB (NF) 40 MG TAB PO SCH (08:39)
[2017-07-07] MEDS ORDERED: predniSONE TAB* 20 MG PO SCH (09:00)
[2017-07-07] MEDS: Diazepam TAB(*) 5 MG PO PRN (09:13)
[2017-07-07 12:33] VITALS: BP 153/42
--- NOTE | 2017-07-08 11:24 | DS ---
Cc: Dr. Ruiz; Dr. Vikash Alegria; Dr. iCsneros; Dr. Brie Shi DISCHARGE SUMMARY: DATE OF ADMISSION: 07/03/17 DATE OF DISCHARGE: 07/07/17 The patient is planned to sign on home hospice on 07/11/17. DISCHARGE DIAGNOSES: 1. Chronic obstructive pulmonary disease exacerbation. 2. Diastolic congestive heart failure exacerbation. SECONDARY DIAGNOSES: 1. Anxiety. 2. History of paroxysmal atrial fibrillation. 3. Status post mitral valve replacement in 2010. 4. History of severe pulmonary hypertension. 5. History of chronic obstructive pulmonary disease, oxygen dependant. 6. Gastroesophageal reflux disease. 7. Left-sided mastectomy for breast cancer. 8. History of right ankle ORIF. 9. Pacemaker placement. 10. Hysterectomy. MEDICATIONS AT DISCHARGE: 1. Prednisone 60 mg daily. 2. Lasix 60 mg daily. 3. Amlodipine 10 mg daily. 4. Augmentin 500 mg b.i.d. for a total of 6 days. 5. Pradaxa 150 mg b.i.d. 6. Diazepam 5 mg 3 times a day p.r.n. 7. Diltiazem CD 240 mg b.i.d. 8. Tikosyn 250 mcg every 12 hours. 9. Advair Diskus 500/50 one inhalation b.i.d. 10. Xopenex nebulizer 1.25 mg inhalation every 6 hours p.r.n. 11. Mag-Ox 400 mg b.i.d. 12. Protonix 40 mg daily. 13. Zoloft 50 mg daily. 14. Spiriva inhalation daily. CONSULTATIONS DURING THE HOSPITAL STAY: Dr. Brie Shi from Hospice. LABORATORY DATA: On 07/07/17, white blood cell count of 11.2, hemoglobin 12.6, hematocrit of 39 and platelets of 246. Sodium is 134, potassium 4.9, chloride 98, carbon dioxide 30, BUN 23, creatinine 0.6. The patient's C-reactive protein was 56.5 on 07/03/17. The patient's chest x- ray obtained on admission, impressio n: "Cardiomegaly. Vascular congestion. Pacemaker leads are in place. No changes since September 2016." HOSPITALIZATION COURSE: Renetta Mora is a 71-year-old female with history of severe oxygen depen dent COPD at 3 L, who presented to the hospital complaining of shortness of breath and cough. The pa tient was noted to be in severe COPD exacerbation. She was also noted to be in exacerbation of chron ic diastolic CHF. She was treated for both. She was placed on IV Lasix as well as intravenous Solu- Medrol. Augmentin was also started to aid in the treatment of COPD exacerbation. It became apparent that through the hospital stay patient has lost weight recently and had been in the end stage of her COPD disease combined with CHF. Dr. Brie Shi saw patient in evaluation and thought that the patient is a candidate for hospice. The patient also needed to be on BiPAP for half of her hospital stay and was in the ICU for that. She still uses BiPAP not only at night, but on an as needed basis. Her oxygen needs are such that right now she requires 5 to 6 L of continuous oxygen. The patient had significant problems with anxiety throughout her hospital stay but she came to terms with her termin al prognosis. At this point, [facility] was notified and the patient is planned to be signed in with hospice at home on 07/11/17. Until that she is to continue her prednisone at 60 mg daily which was increased during her hospital stay from 5 mg every other day previously. She was also started on Norvasc for uncontrolled hypertension. Her potassium supplementation was discontinued since her pot assium was slightly elevated during her hospital stay. The patient is to continue on BiPAP on an as needed basis as well as oxygen at 5 to 6 L. The problem with patient's anxiety may continue and although she signed [facility] with do not resuscitate , comfort care measures only, and do not hospitalize unless severe symptoms cannot be controlled, I a m afraid that if she gets anxious she may come back to the hospital for reevaluation despite her term inal prognosis. PHYSICAL EXAMINATION: At the time of discharge, blood pressure of 153/42, heart rate of 98 and irreg ular, respiratory rate 22, oxygen saturation 93% on 5 L of oxygen via nasal cannula, temperature 98.2 . General: The patient is a very pleasant 71-year-old female who is in no acute distress, alert and awake oriented x3. HEENT: Head atraumatic, normocephalic. Eyes: Pupils are equal and reactive to light and accommodation. Oropharynx: Clear. Mucosa moist. Neck: Supple, no JVD, no bruits bilat erally. Cardiovascular: Irregularly irregular rhythm. Very distant breath sounds bilaterally. Abd omen: Soft, nontender. Bowel sounds present in all 4 quadrants. Extremities: There is no edema. Pulses +2 bilaterally. No clubbing, cyanosis. Please note that this is a short summary of patient's hospitalization, please refer to further medica l records for details. TIME SPENT: Approximately 45 minutes was spent in the preparation of patient's discharge. [id number]/[facility] #: [id number]
== END 2017-07-07 15:30 | disposition hospice, home (50) | DRG 189 ==
LOC: ED 10:41 → MEDTELE 15:17
PROVIDERS: ADMIT Internal Medicine; ATTEND Internal Medicine
PROC: 5A09457 Assistance with Respiratory Ventilation, 24-96 Consecutive Hours, Continuous Positive Airway Pressure (ICD-10-PCS; principal; 2017-07-03)
DX: J96.21 Acute and chronic respiratory failure with hypoxia (principal); I50.33 Acute on chronic diastolic (congestive) heart failure; I27.20 Pulmonary hypertension, unspecified; E87.5 Hyperkalemia; J44.1 Chronic obstructive pulmonary disease with (acute) exacerbation; I11.0 Hypertensive heart disease with heart failure; I48.0 Paroxysmal atrial fibrillation; M41.9 Scoliosis, unspecified; G47.30 Sleep apnea, unspecified; K21.9 Gastro-esophageal reflux disease without esophagitis; M81.0 Age-related osteoporosis without current pathological fracture; F41.9 Anxiety disorder, unspecified; F32.9 Major depressive disorder, single episode, unspecified; H26.9 Unspecified cataract; H35.30 Unspecified macular degeneration; I16.0 Hypertensive urgency; D50.9 Iron deficiency anemia, unspecified; Z66 Do not resuscitate; Z51.5 Encounter for palliative care; Z88.8 Allergy status to other drugs, medicaments and biological substances; Z88.6 Allergy status to analgesic agent; Z91.013 Allergy to seafood; Z99.81 Dependence on supplemental oxygen; Z85.3 Personal history of malignant neoplasm of breast; Z90.12 Acquired absence of left breast and nipple; Z86.19 Personal history of other infectious and parasitic diseases; Z87.891 Personal history of nicotine dependence; Z88.2 Allergy status to sulfonamides; Z95.810 Presence of automatic (implantable) cardiac defibrillator; Z95.2 Presence of prosthetic heart valve; Z90.710 Acquired absence of both cervix and uterus; Z82.5 Family history of asthma and other chronic lower respiratory diseases; Z79.52 Long term (current) use of systemic steroids
CPT/HCPCS: 36415; 71045; 80048; 80053; 81003; 81015; 83605; 83880; 84484; 85025; 85610; 86140; 87502; 93005; 94640; 94660; 94760; 99284; A9270-GY; J0360; J1940; J2920; J2930; J7512

== ENCOUNTER 2017-08-19 13:01 | Inpatient (IN) | payer MEDICARE ==
[~2017-08-19 13:01] MED LIST: Etomidate* 2 MG/ML 10 ML VIAL ONE; Succinylcholine* 20 MG/ML 10 ML VIAL ONE
[2017-08-19] MEDS ORDERED: Midazolam* 1 MG/ML 5 ML VIAL (5 MG) SLOW PUSH ONE (13:19)
[2017-08-19] MEDS ORDERED: Midazolam* 1 MG/ML 5 ML VIAL (5 MG) ONE (13:19)
[2017-08-19 13:21] LABS: Hematocrit 37 % (35-47); Hemoglobin 11.8 g/dl (12.0-16.0); Mean Corpuscular HGB Conc 32 g/dl (31-36); Mean Corpuscular Hemoglobin 24 pg (27-31); Mean Corpuscular Volume 76 fL (80-97); Mean Platelet Volume 8 um3 (7.4-10.4); Platelet Count 269 10^3/ul (150-450); Red Blood Count 4.84 10^6/ul (4.0-5.4); Red Cell Distribution Width 18 % (10.5-15)
[2017-08-19 13:28] LABS: INR 1.22 (0.77-1.02)
[2017-08-19 13:31] LABS: EGFR Non-African American 87.8 (>60)
[2017-08-19] MEDS ORDERED: methylPREDNISolone 125 MG* 2 ML VIAL IV ONE (13:45)
[2017-08-19] MEDS ORDERED: Propofol* 100 ML ONE (13:49)
[2017-08-19] MEDS: Propofol* 100 ML IV SCH ×3 (13:55→21:30)
[2017-08-19 13:57] LABS: ABS Basophils 0.1 10^3/ul (0-0.2); ABS Eosinophils 0 10^3/ul (0-0.6); ABS Lymphocytes 1.6 10^3/ul (1.0-4.8); ABS Monocytes 1.2 10^3/ul (0-0.8); ABS Neutrophils 10.5 10^3/ul (1.5-7.7); ABS Nucleated RBC 0 10^3/ul; Eosinophil % 0.4 % (0-6); Lymphocyte % 11.7 % (25-47); Nucleated Red Blood Cells % 0.1
[2017-08-19] MEDS ORDERED: Albuterol/Ipratropium NEB.SOL* Albuterol 2.5 MG/Ipratropium 0.5 MG 3 ML INH SCH (14:00)
[2017-08-19] MEDS ORDERED: KCL 10 MEQ/50 ML IVPREMIX* 10 MEQ/50 ML BAG IV SCH (14:00)
[2017-08-19] MEDS ORDERED: Midazolam* 1 MG/ML 2 ML VIAL (2 MG) IV ONE (14:36)
--- NOTE | 2017-08-19 14:43 | RAD ---
Indication: Post intubation, shortness of breath. Single frontal view of the chest performed at 1330 hours was reviewed. Comparison is made with previous exam dated July 03, 2017. No mediastinal shift is noted. Patient is status post tracer thoracotomy. ET tube is at the level of the aortic arch. Interstitial edema consistent with vascular congestion is noted. This has increased since previous exam. IMPRESSION: ET TUBE IS AT THE LEVEL OF THE AORTIC ARCH. INTERSTITIAL EDEMA CONSISTENT WITH VASCULAR CONGESTION IS NOTED.
[2017-08-19] MEDS ORDERED: Potassium Chloride IV* 40 MEQ in NS 0.9% 250 ML* 250 ML IVPB ONE (15:00)
--- NOTE | 2017-08-19 15:22 | HP ---
H&P (Free Text) History and Physical: History and Physical -- Critical Care Limitations in history/physical: intubated; history from chart/medical record/ daughter at bedside Date of admission: 08/19/2017 HPI: 71y F w/pmhx of Severe COPD on 4-5L Home O2, Severe Pulmonary Hypertension , LV diastolic dysfunction, h/o bio MVR, paroxysmal Atrial fibrillation on AC, GERD, h/o left mastectomy for breast CA 2010 s/p chemo, s/p PPM, anxiety disorder; Recently admitted to [facility] for respiratory distress, COPD exacerbation, Diastolic heart failure. Code status was discussed and seems she was made DNR/ DNI prior to discharge after much talk and she stated she would followup with her PCP about hospice services. According to the daughter her PCP wanted to see her before referring her to hospice, which the PCP did not happen yet. This morning patient was extremely short of breath when the daughter came to see her. Daughter noted no symptoms prior to today in the week past of any increasing sob/fever/cough/sputum/sick contacts. She did notice increasing lower extremity edema despite taking oral diuretics. When daughter arrived she asked patient if she wanted to call EMS and about code status and patient stated to daughter that she does not want DNR/DNI and does not want to today. EMS called, on arrival placed on oxygen, then CPAP, sats in 70s. They called in possible cardiac arrest though no loss of pulse at any time. In ER, she was in resp distress, being manually bagged, sats in upper 90s, pulse+, first BP 150s systolic, HR 70s. She was intubated by ER physician with etomidate /succinylcholine with glidescope successfully. Currently patient intubated, history from daughter. Sedated. Vitals reviewed ROS: limited ROS patient intubated PMHx: Severe COPD on 4-5L Home O2, Severe Pulmonary Hypertension, LV diastolic dysfunction, h/o bio MVR, paroxysmal Atrial fibrillation on AC, GERD, h/o left mastectomy for breast CA 2010 s/p chemo, s/p PPM, anxiety disorder PSHx: left breast mastectomy 2010, hysterectomy Family History: COPD in mother/father/brother/sister Social History: Alcohol-none; Smoking-quit 30yrs back, smoked 3ppd x 30yrs; Drug use-none Allergies: Allergies Allergy/AdvReac Type Severity Reaction Status Date / Time shellfish derived Allergy Severe Swelling Verified 08/19/17 14:01 Of Face,Lips,& Throat NSAIDS (Non-Steroidal Allergy Intermediate See Comment Verified 08/19/17 14:03 Anti-Inflamma warfarin Allergy Intermediate Hives Verified 08/19/17 14:01 adhesive tape Allergy Mild Rash Verified 08/19/17 14:03 levofloxacin Allergy Unknown Unknown Verified 08/19/17 14:01 Reaction Details propranolol Allergy Unknown Unknown Verified 08/19/17 14:03 Reaction Details Sulfa (Sulfonamide AdvReac Mild Dizziness Verified 08/19/17 14:01 Antibiotics) Home Medications: reviewed Diazepam TAB(*) [Valium TAB(*)] 5 mg PO TID PRN 04/30/12 [History Confirmed ] Pantoprazole TAB (NF) [Protonix TAB (NF)] 40 mg PO DAILY 04/30/12 [History Confirmed 08/19/17] Tiotropium CAP.INH* [Spiriva CAP.INH*] 1 cap INH QAM 01/14/13 [History Confirmed 08/19/17] Dabigatran CAP(NF) [Pradaxa CAP(NF)] 150 mg PO BID 02/11/14 [History Confirmed 08/19/17] Fluticasone-Salmeterol 500-50* [Advair Diskus 500-50*] 1 puff INH BID 02/11/14 [ History Confirmed 08/19/17] Dofetilide CAP* [Tikosyn CAP*] 250 mcg PO Q12HR 11/06/14 [History Confirmed ] Levalbuterol 1.25MG/0.5ML NEB* [Xopenex 1.25 MG/0.5 ML NEB.PARVEZ*] 1.25 mg INH Q6H PRN 11/06/14 [History Confirmed 08/19/17] Sertraline* [Zoloft*] 50 mg PO DAILY 09/24/16 [History Confirmed 08/19/17] Magnesium Oxide TAB* [MagOx 400 TAB*] 400 mg PO BID #0 09/25/16 [Rx Confirmed ] Diltiazem CD CAP* [Cardizem CD CAP*] 240 mg PO BID 07/03/17 [History Confirmed 08/19/17] Amlodipine Besylate [Norvasc 10 mg tab] 10 mg PO DAILY #30 tab 07/07/17 [Rx Confirmed 08/19/17] Furosemide TAB* [Lasix TAB*] 80 mg PO DAILY 08/19/17 [History Confirmed 08/19/17 ] Potassium Chlor TAB* [Klor Con ER TAB*] 40 meq PO BID 08/19/17 [History Confirmed 08/19/17] predniSONE TAB* [Deltasone TAB*] 5 mg PO DAILY 08/19/17 [History Confirmed 08/19] Tele: atrial fibrillation, rate controlled 70s Vitals: Vital Signs Temp 98.6 F 08/19/17 14:00 Pulse 69 08/19/17 14:07 Resp 19 08/19/17 14:19 BP 155/57 08/19/17 14:01 Pulse Ox 100 08/19/17 14:07 Intake & Output 08/18/17 08/19/17 08/19/17 18:59 06:59 18:59 Weight 149 lb 14.629 oz O2/Vent: AC 14/450/+5/50% Infusions: heplock Current Medications: Albuterol/Ipratropium (Duoneb (Albuterol 2.5 Mg/Ipratropium 0.5 Mg)) 1 neb INH Q4H AG Chlorhexidine Gluconate (Peridex Mouth Wash 0.12%*) 15 ml TOPICAL Q4H AG Furosemide (Lasix Iv*) 40 mg IV DAILY AG Propofol (Diprivan*) 100 mls @ 9.253 mls/hr IV .(Initial Rate) AG; 20 MCG/KG/ MIN PRN Reason: Protocol Last Admin: 08/19/17 13:55 Dose: 8.2 mls/hr Potassium Chloride 40 meq/ (Sodium Chloride) 270 mls @ 67.5 mls/hr IVPB ONCE ONE Stop: 08/19/17 18:59 Methylprednisolone Sodium Succinate (Solu-Medrol 40 Mg) 40 mg IV Q12H AG Pantoprazole Sodium (Protonix Iv*) 40 mg IV Q24H AG Sertraline HCl (Zoloft*) 50 mg PO DAILY AG Physical Exam: General: intubated, sedated Head: normocephalic, atraumatic HEENT: no pallor, no icterus, moist mucous membranes Neck: soft, supple, ++ jvd CVS: normal rate, regular, no murmur Resp: bilateral dec BS, no wheezing/rhonchi/rhales, tachypnea+ Abdomen: soft, nontender, nondistended, bowel sounds present Ext: pulses+, warm, edema3+ Skin: intact, no breakdown, no dryness Neuro: intubated, sedated Labs: Laboratory Results - last 24 hr 08/19/17 08/19/17 08/19/17 13:05 13:05 13:05 WBC RBC Hgb Hct MCV MCH MCHC RDW Plt Count MPV Neut % (Auto) Lymph % (Auto) Mccone % (Auto) Eos % (Auto) Baso % (Auto) Absolute Neuts (auto) Absolute Lymphs (auto) Absolute Monos (auto) Absolute Eos (auto) Absolute Basos (auto) Absolute Nucleated RBC Nucleated RBC % INR (Anticoag Therapy) 1.22 H APTT 48.0 H D-Dimer, Quantitative 324 H Patient Temperature ABG pH ABG pH (Temp Correct) ABG pCO2 ABG pCO2 (Temp Corrct ABG pO2 ABG pO2 (Temp Correct ABG HCO3 ABG O2 Saturation ABG Base Excess Respiration Rate Ventilator Type Vent Mode FiO2 Inspiratory Time PEEP Pressure Support Pressure Control EPAP IPAP BiPAP Sodium 137 Potassium 3.3 L Chloride 97 L Carbon Dioxide 34 H Anion Gap 6 BUN 11 Creatinine 0.66 Est GFR ( Amer) 112.9 Est GFR (Non-Af Amer) 87.8 BUN/Creatinine Ratio 16.7 Glucose 148 H Lactic Acid Calcium 9.3 Total Bilirubin 0.60 AST 18 ALT 17 Alkaline Phosphatase 91 Total Creatine Kinase 24 CK-MB (CK-2) 2.7 Troponin I 0.02 C-Reactive Protein 62.95 H B-Natriuretic Peptide 120 H Total Protein 7.0 Albumin 4.2 Globulin 2.8 Albumin/Globulin Ratio 1.5 Influenza A (Rapid) Influenza B (Rapid) 08/19/17 08/19/17 08/19/17 13:05 13:05 13:15 WBC 13.0 H RBC 4.84 Hgb 11.8 L Hct 37 MCV 76 L MCH 24 L MCHC 32 RDW 18 H Plt Count 269 MPV 8 Neut % (Auto) 78.2 Lymph % (Auto) 11.7 L Mccone % (Auto) 9.2 H Eos % (Auto) 0.4 Baso % (Auto) 0.5 Absolute Neuts (auto) 10.5 H Absolute Lymphs (auto) 1.6 Absolute Monos (auto) 1.2 H Absolute Eos (auto) 0 Absolute Basos (auto) 0.1 Absolute Nucleated RBC 0 Nucleated RBC % 0.1 INR (Anticoag Therapy) APTT D-Dimer, Quantitative Patient Temperature Not Reportable ABG pH 7.25 L ABG pH (Temp Correct) Not Reportable ABG pCO2 86 H* ABG pCO2 (Temp Corrct Not Reportable ABG pO2 116 H ABG pO2 (Temp Correct Not Reportable ABG HCO3 30.9 ABG O2 Saturation 99.8 H ABG Base Excess 7.7 H Respiration Rate 14 Ventilator Type 450 Vent Mode Not Reportable FiO2 50 Inspiratory Time Not Reportable PEEP 5 Pressure Support Not Reportable Pressure Control Not Reportable EPAP Not Reportable IPAP Not Reportable BiPAP Not Reportable Sodium Potassium Chloride Carbon Dioxide Anion Gap BUN Creatinine Est GFR ( Amer) Est GFR (Non-Af Amer) BUN/Creatinine Ratio Glucose Lactic Acid 0.5 Calcium Total Bilirubin AST ALT Alkaline Phosphatase Total Creatine Kinase CK-MB (CK-2) Troponin I C-Reactive Protein B-Natriuretic Peptide Total Protein Albumin Globulin Albumin/Globulin Ratio Influenza A (Rapid) Influenza B (Rapid) 08/19/17 13:27 WBC RBC Hgb Hct MCV MCH MCHC RDW Plt Count MPV Neut % (Auto) Lymph % (Auto) Mccone % (Auto) Eos % (Auto) Baso % (Auto) Absolute Neuts (auto) Absolute Lymphs (auto) Absolute Monos (auto) Absolute Eos (auto) Absolute Basos (auto) Absolute Nucleated RBC Nucleated RBC % INR (Anticoag Therapy) APTT D-Dimer, Quantitative Patient Temperature ABG pH ABG pH (Temp Correct) ABG pCO2 ABG pCO2 (Temp Corrct ABG pO2 ABG pO2 (Temp Correct ABG HCO3 ABG O2 Saturation ABG Base Excess Respiration Rate Ventilator Type Vent Mode FiO2 Inspiratory Time PEEP Pressure Support Pressure Control EPAP IPAP BiPAP Sodium Potassium Chloride Carbon Dioxide Anion Gap BUN Creatinine Est GFR ( Amer) Est GFR (Non-Af Amer) BUN/Creatinine Ratio Glucose Lactic Acid Calcium Total Bilirubin AST ALT Alkaline Phosphatase Total Creatine Kinase CK-MB (CK-2) Troponin I C-Reactive Protein B-Natriuretic Peptide Total Protein Albumin Globulin Albumin/Globulin Ratio Influenza A (Rapid) Negative Influenza B (Rapid) Negative Arterial Blood Gas Results Patient Temperature Not Reportable 08/19/17 13:15 ABG pH 7.25 (7.35-7.45) L 08/19/17 13:15 ABG pH (Temp Correct) Not Reportable 08/19/17 13:15 ABG pCO2 86 mmHg (35-45) H* 08/19/17 13:15 ABG pCO2 (Temp Corrct Not Reportable 08/19/17 13:15 ABG pO2 116 mmHg (80-100) H 08/19/17 13:15 ABG pO2 (Temp Correct Not Reportable 08/19/17 13:15 ABG HCO3 30.9 mmol/L (19-31) 08/19/17 13:15 ABG O2 Saturation 99.8 % (95-98) H 08/19/17 13:15 ABG Base Excess 7.7 (-2.0-2.0) H 08/19/17 13:15 Respiration Rate 14 08/19/17 13:15 Ventilator Type 450 08/19/17 13:15 Vent Mode Not Reportable 08/19/17 13:15 FiO2 50 08/19/17 13:15 Inspiratory Time Not Reportable 08/19/17 13:15 PEEP 5 08/19/17 13:15 Pressure Support Not Reportable 08/19/17 13:15 Pressure Control Not Reportable 08/19/17 13:15 EPAP Not Reportable 08/19/17 13:15 IPAP Not Reportable 08/19/17 13:15 BiPAP Not Reportable 08/19/17 13:15 Imaging: cxr 08/19 ett above susan, bilateral interstitial infiltrates as prior cxr, some increased, possibly more congestion. Assessment: 71y F w/pmhx of Severe COPD on 4-5L Home O2, Severe Pulmonary Hypertension, LV diastolic dysfunction, h/o bio MVR, paroxysmal Atrial fibrillation on AC, GERD, h/o left mastectomy for breast CA 2010 s/p chemo, s/p PPM, anxiety disorder; Recently admitted to [facility] for respiratory distress, COPD exacerbation, Diastolic heart failure. Code status was discussed and seems she was made DNR/DNI prior to discharge after much talk and she stated she would followup with her PCP about hospice services. Today acute respiratory distress, she asked for EMS and revoked DNR/DNI to daughter, hypoxic on ride to [facility] to 70s. Intubated in ER, hemodyn stable. -Acute COPD exacerbation -Acute on chronic hypercapneic respiratory failure -Acute on chronic hypoxic respiratory failure -Acute on Chronic LV diastolic heart failure -Volume overload -Leukocytosis Paroxysmal Afib, s/p PPM bioMVR Anxiety disorder Plan: Neuro- intubated, start propofol for sedation. Neurochecks daily. Delirium precautions. CVS- hemodyn stable. Afib with Pacing at times. Hold pradaxa, start IV heparin for now till extubated. Resume amlodipine/Cardizem via ngt. 3+ Edema/volume overload/pulm congestion, start Lasix 40mg IV daily. Replete IV K. No clear infiltrates on CXR, pending U/A, low suspicion for sepsis at this time, hold Abx. LA neg x1. Will need to restart tikosyn for Afib once extubated. Resume Cardizem at 120mg q6h via ngt. Resp- intubated now, sats 100% on 50%. Acute on chronic hypoxic/hypercap resp failure. Noted ABG. Start solumedrol and albuterol/atrovent q4h. CXR with no acute infiltrate consistent with pneumonia but prob more congestion. Start Lasix for diuresis. No weaning today ID- afebrile, wbc 13, previously 11. No clear new infiltrate on CXR. Urine pending. Blood cultures to be sent. Hold abx for now. GI- npo. Place ngt. PPI daily IV. Renal- Cr okay. Hypokalemia, replete K IV. No acidosis/LA normal. Insert judd. Lasix 40mg iv daily, goal neg balance. Heme- anemia, 11-13 as prior, monitor. Plt okay. Hold pradaxa, re-eval tomorrow , pradaxa if extubated or IV heparin/SQ lovenox for AC Endo- fingersticks q6h. Musculsk- bedrest. Pressure ulcer proph. Wounds- none Nutrition- npo DVT prophylaxis: SCDs; IV heparin tonight GI prophylaxis: PPI IV Central Line:- Arterial Line:- Judd Cathetor:- Disposition: admit to ICU Expected length of stay >2midnights Code Status: full code Total Critical Care time is 90 minutes, excluding procedures/teaching Bright Subramanian MD Licensed Mental Health Counselor (Electronically Signed)
[2017-08-19] MEDS: Chlorhexidine MOUTHWASH 0.12%* 15 ML UDC TOPICAL SCH ×2 (15:34→19:30)
[2017-08-19] MEDS: Furosemide IV* 10 MG/ML VIAL (40 MG) IV SCH (15:34)
[2017-08-19 15:38] LABS: Urine Appearance Cloudy; Urine Blood 1+ (Negative); Urine Color Yellow; Urine Ketones Negative (Negative); Urine Protein 2+(100 mg/dL) (Negative); Urine Specific Gravity 1.014 (1.010-1.030); Urine Urobilinogen Negative (Negative)
[2017-08-19] MEDS: Albuterol/Ipratropium NEB.SOL* Albuterol 2.5 MG/Ipratropium 0.5 MG 3 ML INH SCH ×3 (15:42→23:14)
[2017-08-19] MEDS: Diltiazem TAB* 30 MG PO SCH (18:28)
--- NOTE | 2017-08-19 18:53 | RAD ---
Indication: Evaluate orogastric tube placement. Single frontal view of the chest performed at 1815 hours was reviewed. Comparison is made with previous exam dated August 19, 2017. Endotracheal tube is in place. Cardiomegaly is noted. Interstitial edema appears to persist and is unchanged from previous exam. Orogastric tube is below the diaphragm in the left upper quadrant although the tip is not visualized. IMPRESSION: INTERSTITIAL EDEMA. OROGASTRIC TUBE APPEARS TO BE BELOW THE DIAPHRAGM WITH THE TIP IN THE LEFT UPPER QUADRANT ALTHOUGH THE TIP IS NOT VISUALIZED.
[2017-08-19] MEDS ORDERED: Pantoprazole IV* 40 MG IV SCH (20:00)
[2017-08-19] MEDS: methylPREDNISolone SOD 40 MG* 1 ML VIAL IV SCH (21:23)
--- NOTE | 2017-08-19 22:14 | ED ---
Gilberto Sheldon Tiffany, scribed for Geraldine Martinez MD on 08/19/17 at 1350 . Respiratory - HPI Summary HPI Summary: The patient is a 71 y/o F BIBA in severe respiratory distress at 12:45 on . Pt seen immediately upon arrival while still on EMS stretcher. Symptoms aggravated by nothing. Symptoms alleviated by nothing. Per EMS, pts last BP was 178/82. Had pulse the whole ambulance ride. O2 Sats in the 70s despite CPAP by EMS. Rhythm was A-fib with RVR per EMS. Unable to get SPO2 over 76% with cpap. ABC alert called prior to arrival per EMS report. LEVEL 5 CAVEAT: HPI is limited because patient was bagged. - History of Current Complaint Chief Complaint: EDRespiratoryDistress Stated Complaint: ABC ALERT Time Seen by Provider: 08/19/17 13:09 Hx Obtained From: EMS Hx From Patient Unobtainable Due To: Extremis - Pt was bagged Onset/Duration: Sudden Onset, Lasting Minutes - 12:45 on 08/19/17, Still Present Timing: Constant Initial Severity: Severe Current Severity: Severe Character: Dyspnea at Rest Aggravating Factor(s): Nothing Alleviating Factor(s): Nothing Associated Signs and Symptoms: SOB - Allergy/Home Medications Allergies/Adverse Reactions: Allergies Allergy/AdvReac Type Severity Reaction Status Date / Time shellfish derived Allergy Severe Swelling Verified 08/19/17 14:01 Of Face,Lips,& Throat NSAIDS (Non-Steroidal Allergy Intermediate See Comment Verified 08/19/17 14:03 Anti-Inflamma warfarin Allergy Intermediate Hives Verified 08/19/17 14:01 adhesive tape Allergy Mild Rash Verified 08/19/17 14:03 levofloxacin Allergy Unknown Unknown Verified 08/19/17 14:01 Reaction Details propranolol Allergy Unknown Unknown Verified 08/19/17 14:03 Reaction Details Sulfa (Sulfonamide AdvReac Mild Dizziness Verified 08/19/17 14:01 Antibiotics) Home Medications: Home Medications Furosemide TAB* [Lasix TAB*] 80 mg PO DAILY 08/19/17 [History Confirmed 08/19/17 ] Potassium Chlor TAB* [Klor Con ER TAB*] 40 meq PO BID 08/19/17 [History Confirmed 08/19/17] predniSONE TAB* [Deltasone TAB*] 5 mg PO DAILY 08/19/17 [History Confirmed 08/19] PMH/Surg Hx/FS Hx/Imm Hx Previously Healthy: No Endocrine/Hematology History: Reports: Hx Anticoagulant Therapy, Hx Anemia Denies: Hx Diabetes, Hx Thyroid Disease Cardiovascular History: Reports: Hx Auto Implanted Cardiovert Defib, Hx Congestive Heart Failure, Hx Hypertension, Hx Pacemaker/ICD, Hx Valvular Heart Disease - hx mitral valve replacement, Other Cardiovascular Problems/Disorders - mitral valve prolapse Denies: Hx Coronary Artery Disease Respiratory History: Reports: Hx Chronic Obstructive Pulmonary Disease (COPD) - on 3L O2 at home, Hx Pneumonia, Hx Seasonal Allergies, Hx Sleep Apnea GI History: Reports: Hx Gastroesophageal Reflux Disease, Hx Hiatal Hernia, Other GI Disorders - hemorrhoids History: Reports: Hx Acute Renal Failure, Hx Renal Disease Musculoskeletal History: Reports: Hx Osteoporosis, Hx Scoliosis, Other Musculoskeletal History - plate in right ankle Sensory History: Reports: Hx Cataracts, Hx Contacts or Glasses Denies: Hx Glaucoma, Hx Hearing Aid Opthamlomology History: Reports: Hx Cataracts, Hx Contacts or Glasses Denies: Hx Glaucoma Psychiatric History: Reports: Hx Anxiety, Hx Depression - Cancer History Cancer Type, Location and Year: BREAST CA s/p mastectomy Hx Chemotherapy: No Hx Radiation Therapy: No - Surgical History Surgery Procedure, Year, and Place: pace maker 2012, cataract x2, tonsilectomy. open heart surgery mitral valve replacement, cardiac ablations 2010. mastectomy 2010 (left side). lymphectomy. PLATE IN R ANKLE Hx Anesthesia Reactions: No - Immunization History Date of Tetanus Vaccine: unk Date of Influenza Vaccine: 2011 Infectious Disease History: No Infectious Disease History: Reports: Hx Clostridium Difficile, Hx Hepatitis - CHILD Denies: Traveled Outside the [place] in Last 30 Days - Family History Known Family History: Positive: Other - TIA - Social History Alcohol Use: None Hx Substance Use: No Substance Use Type: Reports: None Hx Tobacco Use: Yes Smoking Status (MU): Former Smoker Type: Cigarettes Amount Used/How Often: 2 PPD Length of Time of Smoking/Using Tobacco: 15 years Have You Smoked in the Last Year: No Review of Systems - ROS Summary Review of Systems Summary: LEVEL 5 CAVEAT: ROS is limited because patient was bagged. Positive: Other - Respiratory distress All Other Systems Reviewed And Are Negative: No Physical Exam - Summary Physical Exam Summary: Appearance: Ill-appearing, respiratory distress, being bagged by EMS Skin: Left mastectomy Head: Normal Head/Face inspection Eyes: Conjunctiva clear ENT: Normal inspection Neck: Supple, no nodes, no JVD. Respiratory: In respiratory distress, using all accessory muscles, is nonverbal , intubated on arrival Cardio: RRR, No murmur, pulses normal, brisk capillary refill Abdomen: soft, nontender Bowel sounds: present Musculoskeletal: Strength Intact/ ROM intact. No calf tenderness. No edema. Neuro: Alert, muscle tone normal, facial symmetry, sensory/motor intact Psychological: unable to assess due to extremis Triage Information Reviewed: Yes Vital Signs On Initial Exam: Initial Vitals Temp Pulse Resp BP Pulse Ox 97.6 F 77 13 155/116 96 08/19/17 13:02 08/19/17 13:02 08/19/17 13:02 08/19/17 13:02 08/19/17 13:02 Vital Signs Reviewed: Yes Procedures - Intubation Time of Intubation: 13:05 - glidescope Intubation Method: orotracheal Tube Size (cm): 7.5 Medications: Succinylcholine - 100mg, and etomidate 20mg Breath Sounds after Intubation: equal Intubation Complications: no complications Post Intubation Xray: Yes - ET tube in good position Diagnostics - Vital Signs Vital Signs Temp Pulse Resp BP Pulse Ox 08/19/17 13:21 153/58 08/19/17 13:02 97.6 F 77 13 155/116 96 - Laboratory Lab Results: Lab Results 08/19/17 08/19/17 Range/Units 13:05 13:15 WBC 13.0 H (3.5-10.8) 10^3/ul RBC 4.84 (4.0-5.4) 10^6/ul Hgb 11.8 L (12.0-16.0) g/dl Hct 37 (35-47) % MCV 76 L (80-97) fL MCH 24 L (27-31) pg MCHC 32 (31-36) g/dl RDW 18 H (10.5-15) % Plt Count 269 (150-450) 10^3/ul MPV 8 (7.4-10.4) um3 Neut % (Auto) Pending Lymph % (Auto) Pending [place] % (Auto) Pending Eos % (Auto) Pending Baso % (Auto) Pending Absolute Neuts (auto) Pending Absolute Lymphs (auto) Pending Absolute Monos (auto) Pending Absolute Eos (auto) Pending Absolute Basos (auto) Pending Absolute Nucleated RBC Pending Nucleated RBC % Pending Patient Temperature Not Reportable ABG pH Pending ABG pH (Temp Correct) Pending ABG pCO2 Pending ABG pCO2 (Temp Corrct Pending ABG pO2 Pending ABG pO2 (Temp Correct Pending ABG HCO3 Pending ABG O2 Saturation Pending ABG Base Excess Pending Respiration Rate 14 Ventilator Type 450 Vent Mode Not Reportable FiO2 50 Inspiratory Time Not Reportable PEEP 5 Pressure Support Not Reportable Pressure Control Not Reportable EPAP Not Reportable IPAP Not Reportable BiPAP Not Reportable Result Diagrams: 08/19/17 13:05 08/19/17 13:05 Lab Statement: Any lab studies that have been ordered have been reviewed, and results considered in the medical decision making process. - Radiology CXR Radiology Interpretation Completed By: Radiologist - ET TUBE IS AT THE LEVEL OF THE AORTIC ARCH. INTERSTITIAL EDEMA CONSISTENT WITH VASCULAR CONGESTION IS NOTED. ED physician has reviewed this radiology report. - EKG 13:18 Cardiac Rate: NL - 69 BPM EKG Rhythm: Sinus Rhythm ST Segment: Non-Specific Ectopy: PVCs EKG Interpretation: A-fib. Prolonged IVCT with LBBB. Nml QTc. Nml axis. EKG Comparison: No Significant Change - Compared with 07/03/17 Disposition - Course Course Of Treatment: Allergies noted. High blood pressure noted. Medications reviewed this visit. ABC alert called at 12:58 prior to arrival Given 20mg etomidate, 100mg succinylcholine. Intubated at 13:05 with 7.5 ET tube, with glidescope, first attempt, 20 at the lip. EKG no change from 07/03/17. CXR reveals, per radiologist, ET TUBE IS AT THE LEVEL OF THE AORTIC ARCH. INTERSTITIAL EDEMA CONSISTENT WITH VASCULAR CONGESTION IS NOTED. Patient will be admitted to Dr. Subramanian from ICU. Dr. Subramanian present in ED immediately as patient is intubated. - Differential Dx - Cardiopulmonary Differential Diagnoses - Cardiopulmonary: Acute Dyspnea, Atrial Fibrillation, Other - respiratory failure - Diagnoses Provider Diagnoses: Respiratory failure During the Visit The Following Alert/Code Occurred: ABC Alert - Called at 12:58 - Critical Care Time Critical Care Time: 30-74 min - 30 minutes Discharge - Discharge Plan Condition: Stable Disposition: ADMITTED TO [facility] documentation as recorded by the Gilberto becerra Tiffany accurately reflects the service I personally performed and the decisions made by , Geraldine Martinez MD.
[2017-08-20] MEDS: Diltiazem TAB* 30 MG PO SCH ×5 (00:28→23:58)
[2017-08-20] MEDS: Chlorhexidine MOUTHWASH 0.12%* 15 ML UDC TOPICAL SCH ×7 (00:28→23:58)
[2017-08-20] MEDS: Propofol* 100 ML IV SCH ×6 (01:10→21:19)
[2017-08-20] MEDS: Albuterol/Ipratropium NEB.SOL* Albuterol 2.5 MG/Ipratropium 0.5 MG 3 ML INH SCH ×2 (03:55→06:57)
[2017-08-20] MEDS: methylPREDNISolone SOD 40 MG* 1 ML VIAL IV SCH ×2 (07:24→21:21)
[2017-08-20] MEDS: Furosemide IV* 10 MG/ML VIAL (40 MG) IV SCH ×2 (08:28→21:22)
[2017-08-20] MEDS: Sertraline* 50 MG TAB PO SCH (08:28)
--- NOTE | 2017-08-20 09:49 | PN ---
Progress Note - Progress Note Date of Service: 08/20/17 Note: Progress Note -- Critical Care 24 hour events: -admitted yesterday -overnight no hemodyn changes; on mild sedation but awakens -on propofol -abg reviewed, stable vent and oxygenation -still remains tachypneic on vent -did not make much urine with lasix iv yet. -febrile tmax 101.4 overnight Tele: atrial fibrillation, rate controlled 70s Vitals: Vital Signs Temp 100.4 F 08/20/17 09:00 Pulse 73 08/20/17 09:00 Resp 17 08/20/17 09:00 BP 139/56 08/20/17 09:00 Pulse Ox 95 08/20/17 09:00 Intake & Output 08/19/17 08/20/17 08/20/17 18:59 06:59 18:59 Intake Total 756 Output Total 45 450 Balance -45 306 Weight 149 lb 14.629 oz 149 lb 11.102 oz 149 lb Intake: IV Fluids 381 kvo 381 Medicated IV 375 Propofol 375 Output: Urine 200 Burnett 250 Residual 45 16 Fr Temperature Probe 45 O2/Vent: AC 14/450/+5/50% Infusions: propofol Current Medications: Albuterol/Ipratropium (Duoneb (Albuterol 2.5 Mg/Ipratropium 0.5 Mg)) 1 neb INH Q4H AG Last Admin: 08/20/17 06:57 Dose: 1 neb Chlorhexidine Gluconate (Peridex Mouth Wash 0.12%*) 15 ml TOPICAL Q4H AG Last Admin: 08/20/17 07:24 Dose: 15 ml Diltiazem HCl (Cardizem Tab*) 90 mg PO Q6HR AG Last Admin: 08/20/17 06:51 Dose: Not Given Furosemide (Lasix Iv*) 40 mg IV DAILY AG Last Admin: 08/20/17 08:28 Dose: 40 mg Propofol (Diprivan*) 100 mls @ 9.253 mls/hr IV .(Initial Rate) AG; 20 MCG/KG/ MIN PRN Reason: Protocol Last Admin: 08/20/17 09:40 Dose: 24.5 mls/hr Vancomycin HCl 1,000 mg/ (Sodium Chloride) 250 mls @ 166.667 mls/hr IVPB ONCE ONE Stop: 02/25/18 11:19 Methylprednisolone Sodium Succinate (Solu-Medrol 40 Mg) 40 mg IV Q12H [facility] Last Admin: 08/20/17 07:24 Dose: 40 mg Midazolam HCl (Versed 2mg/2ml*) 2 mg IV Q2H PRN PRN Reason: ANXIETY Pantoprazole Sodium (Protonix Iv*) 40 mg IV Q24H [facility] Last Admin: 08/19/17 21:23 Dose: 40 mg Pharmacy Consult (Vancomycin Per Pharmacy*) 1 note FOLLOW UP .VANC PER PHARMACY [facility] Sertraline HCl (Zoloft*) 50 mg PO DAILY [facility] Last Admin: 08/20/17 08:28 Dose: 50 mg Physical Exam: General: intubated, sedated but awakens and follows commands; still appear tachypneic Head: normocephalic, atraumatic HEENT: no pallor, no icterus, moist mucous membranes Neck: soft, supple, + jvd CVS: normal rate, regular, no murmur Resp: bilateral dec BS, no wheezing/rhonchi/rhales, tachypnea+ Abdomen: soft, nontender, nondistended, bowel sounds present Ext: pulses+, warm, edema3+ Skin: intact, no breakdown, no dryness Neuro: intubated, sedated but awakens/follows commands/ moves all ext Labs: Laboratory Results - last 24 hr 08/19/17 08/19/17 08/19/17 13:05 13:05 13:05 WBC RBC Hgb Hct MCV MCH MCHC RDW Plt Count MPV Neut % (Auto) Lymph % (Auto) [place] % (Auto) Eos % (Auto) Baso % (Auto) Absolute Neuts (auto) Absolute Lymphs (auto) Absolute Monos (auto) Absolute Eos (auto) Absolute Basos (auto) Absolute Nucleated RBC Nucleated RBC % INR (Anticoag Therapy) 1.22 H APTT 48.0 H D-Dimer, Quantitative 324 H Patient Temperature ABG pH ABG pH (Temp Correct) ABG pCO2 ABG pCO2 (Temp Corrct ABG pO2 ABG pO2 (Temp Correct ABG HCO3 ABG O2 Saturation ABG Base Excess Respiration Rate O2 Delivery Device Ventilator Type Vent Mode FiO2 Inspiratory Time PEEP Pressure Support Pressure Control EPAP IPAP BiPAP Sodium 137 Potassium 3.3 L Chloride 97 L Carbon Dioxide 34 H Anion Gap 6 BUN 11 Creatinine 0.66 Est GFR ( Amer) 112.9 Est GFR (Non-Af Amer) 87.8 BUN/Creatinine Ratio 16.7 Glucose 148 H POC Glucose (mg/dL) Lactic Acid Calcium 9.3 Total Bilirubin 0.60 AST 18 ALT 17 Alkaline Phosphatase 91 Total Creatine Kinase 24 CK-MB (CK-2) 2.7 Troponin I 0.02 C-Reactive Protein 62.95 H B-Natriuretic Peptide 120 H Total Protein 7.0 Albumin 4.2 Globulin 2.8 Albumin/Globulin Ratio 1.5 Urine Color Urine Appearance Urine pH Ur Specific [place] Urine Protein Urine Ketones Urine Blood Urine Nitrate Urine Bilirubin Urine Urobilinogen Ur Leukocyte Esterase Urine WBC (Auto) Urine RBC (Auto) Urine Bacteria Hyaline Casts Granular Casts Urine Glucose Influenza A (Rapid) Influenza B (Rapid) 08/19/17 08/19/17 08/19/17 13:05 13:05 13:15 WBC 13.0 H RBC 4.84 Hgb 11.8 L Hct 37 MCV 76 L MCH 24 L MCHC 32 RDW 18 H Plt Count 269 MPV 8 Neut % (Auto) 78.2 Lymph % (Auto) 11.7 L [place] % (Auto) 9.2 H Eos % (Auto) 0.4 Baso % (Auto) 0.5 Absolute Neuts (auto) 10.5 H Absolute Lymphs (auto) 1.6 Absolute Monos (auto) 1.2 H Absolute Eos (auto) 0 Absolute Basos (auto) 0.1 Absolute Nucleated RBC 0 Nucleated RBC % 0.1 INR (Anticoag Therapy) APTT D-Dimer, Quantitative Patient Temperature Not Reportable ABG pH 7.25 L ABG pH (Temp Correct) Not Reportable ABG pCO2 86 H* ABG pCO2 (Temp Corrct Not Reportable ABG pO2 116 H ABG pO2 (Temp Correct Not Reportable ABG HCO3 30.9 ABG O2 Saturation 99.8 H ABG Base Excess 7.7 H Respiration Rate 14 O2 Delivery Device Ventilator Type 450 Vent Mode Not Reportable FiO2 50 Inspiratory Time Not Reportable PEEP 5 Pressure Support Not Reportable Pressure Control Not Reportable EPAP Not Reportable IPAP Not Reportable BiPAP Not Reportable Sodium Potassium Chloride Carbon Dioxide Anion Gap BUN Creatinine Est GFR ( Amer) Est GFR (Non-Af Amer) BUN/Creatinine Ratio Glucose POC Glucose (mg/dL) Lactic Acid 0.5 Calcium Total Bilirubin AST ALT Alkaline Phosphatase Total Creatine Kinase CK-MB (CK-2) Troponin I C-Reactive Protein B-Natriuretic Peptide Total Protein Albumin Globulin Albumin/Globulin Ratio Urine Color Urine Appearance Urine pH Ur Specific [place] Urine Protein Urine Ketones Urine Blood Urine Nitrate Urine Bilirubin Urine Urobilinogen Ur Leukocyte Esterase Urine WBC (Auto) Urine RBC (Auto) Urine Bacteria Hyaline Casts Granular Casts Urine Glucose Influenza A (Rapid) Influenza B (Rapid) 08/19/17 08/19/17 08/19/17 13:27 15:20 16:25 WBC RBC Hgb Hct MCV MCH MCHC RDW Plt Count MPV Neut % (Auto) Lymph % (Auto) [place] % (Auto) Eos % (Auto) Baso % (Auto) Absolute Neuts (auto) Absolute Lymphs (auto) Absolute Monos (auto) Absolute Eos (auto) Absolute Basos (auto) Absolute Nucleated RBC Nucleated RBC % INR (Anticoag Therapy) APTT D-Dimer, Quantitative Patient Temperature Not Reportable ABG pH 7.38 ABG pH (Temp Correct) Not Reportable ABG pCO2 61 H ABG pCO2 (Temp Corrct Not Reportable ABG pO2 67 L ABG pO2 (Temp Correct Not Reportable ABG HCO3 32.0 H ABG O2 Saturation 96.5 ABG Base Excess 9.2 H Respiration Rate 14 O2 Delivery Device Ventilator Type 450 Vent Mode cmv FiO2 45 Inspiratory Time 1 PEEP 5 Pressure Support Not Reportable Pressure Control Not Reportable EPAP Not Reportable IPAP Not Reportable BiPAP Not Reportable Sodium Potassium Chloride Carbon Dioxide Anion Gap BUN Creatinine Est GFR ( Amer) Est GFR (Non-Af Amer) BUN/Creatinine Ratio Glucose POC Glucose (mg/dL) Lactic Acid Calcium Total Bilirubin AST ALT Alkaline Phosphatase Total Creatine Kinase CK-MB (CK-2) Troponin I C-Reactive Protein B-Natriuretic Peptide Total Protein Albumin Globulin Albumin/Globulin Ratio Urine Color Yellow Urine Appearance Cloudy Urine pH 5.0 Ur Specific [place] 1.014 Urine Protein 2+(100 mg/dl) H Urine Ketones Negative Urine Blood 1+ H Urine Nitrate Negative Urine Bilirubin Negative Urine Urobilinogen Negative Ur Leukocyte Esterase Negative Urine WBC (Auto) 1+(6-10/hpf) H Urine RBC (Auto) 2+(6-10/hpf) H Urine Bacteria Absent Hyaline Casts Present H Granular Casts Present H Urine Glucose Negative Influenza A (Rapid) Negative Influenza B (Rapid) Negative 08/19/17 08/19/17 08/19/17 16:30 19:00 20:50 WBC RBC Hgb Hct MCV MCH MCHC RDW Plt Count MPV Neut % (Auto) Lymph % (Auto) [place] % (Auto) Eos % (Auto) Baso % (Auto) Absolute Neuts (auto) Absolute Lymphs (auto) Absolute Monos (auto) Absolute Eos (auto) Absolute Basos (auto) Absolute Nucleated RBC Nucleated RBC % INR (Anticoag Therapy) APTT D-Dimer, Quantitative Patient Temperature ABG pH ABG pH (Temp Correct) ABG pCO2 ABG pCO2 (Temp Corrct ABG pO2 ABG pO2 (Temp Correct ABG HCO3 ABG O2 Saturation ABG Base Excess Respiration Rate O2 Delivery Device Ventilator Type Vent Mode FiO2 Inspiratory Time PEEP Pressure Support Pressure Control EPAP IPAP BiPAP Sodium Potassium Chloride Carbon Dioxide Anion Gap BUN Creatinine Est GFR ( Amer) Est GFR (Non-Af Amer) BUN/Creatinine Ratio Glucose POC Glucose (mg/dL) 161 H Lactic Acid 0.6 Calcium Total Bilirubin AST ALT Alkaline Phosphatase Total Creatine Kinase CK-MB (CK-2) Troponin I 0.03 C-Reactive Protein B-Natriuretic Peptide Total Protein Albumin Globulin Albumin/Globulin Ratio Urine Color Urine Appearance Urine pH Ur Specific [place] Urine Protein Urine Ketones Urine Blood Urine Nitrate Urine Bilirubin Urine Urobilinogen Ur Leukocyte Esterase Urine WBC (Auto) Urine RBC (Auto) Urine Bacteria Hyaline Casts Granular Casts Urine Glucose Influenza A (Rapid) Influenza B (Rapid) 08/20/17 08/20/17 08/20/17 00:57 06:10 07:17 WBC RBC Hgb Hct MCV MCH MCHC RDW Plt Count MPV Neut % (Auto) Lymph % (Auto) [place] % (Auto) Eos % (Auto) Baso % (Auto) Absolute Neuts (auto) Absolute Lymphs (auto) Absolute Monos (auto) Absolute Eos (auto) Absolute Basos (auto) Absolute Nucleated RBC Nucleated RBC % INR (Anticoag Therapy) APTT D-Dimer, Quantitative Patient Temperature Not Reportable ABG pH 7.44 ABG pH (Temp Correct) Not Reportable ABG pCO2 51 H ABG pCO2 (Temp Corrct Not Reportable ABG pO2 92 ABG pO2 (Temp Correct Not Reportable ABG HCO3 32.0 H ABG O2 Saturation 99.2 H ABG Base Excess 9.1 H Respiration Rate 14 O2 Delivery Device vent Ventilator Type 450 Vent Mode cmv FiO2 50 Inspiratory Time 1.0 PEEP 5 Pressure Support Not Reportable Pressure Control Not Reportable EPAP Not Reportable IPAP Not Reportable BiPAP Not Reportable Sodium Potassium Chloride Carbon Dioxide Anion Gap BUN Creatinine Est GFR ( Amer) Est GFR (Non-Af Amer) BUN/Creatinine Ratio Glucose POC Glucose (mg/dL) 188 H 179 H Lactic Acid Calcium Total Bilirubin AST ALT Alkaline Phosphatase Total Creatine Kinase CK-MB (CK-2) Troponin I C-Reactive Protein B-Natriuretic Peptide Total Protein Albumin Globulin Albumin/Globulin Ratio Urine Color Urine Appearance Urine pH Ur Specific [place] Urine Protein Urine Ketones Urine Blood Urine Nitrate Urine Bilirubin Urine Urobilinogen Ur Leukocyte Esterase Urine WBC (Auto) Urine RBC (Auto) Urine Bacteria Hyaline Casts Granular Casts Urine Glucose Influenza A (Rapid) Influenza B (Rapid) 08/20/17 09:30 WBC 10.1 RBC 4.33 Hgb 10.9 L Hct 34 L MCV 79 L MCH 25 L MCHC 32 RDW 18 H Plt Count 233 MPV 8 Neut % (Auto) Lymph % (Auto) [place] % (Auto) Eos % (Auto) Baso % (Auto) Absolute Neuts (auto) Absolute Lymphs (auto) Absolute Monos (auto) Absolute Eos (auto) Absolute Basos (auto) Absolute Nucleated RBC Nucleated RBC % INR (Anticoag Therapy) APTT D-Dimer, Quantitative Patient Temperature ABG pH ABG pH (Temp Correct) ABG pCO2 ABG pCO2 (Temp Corrct ABG pO2 ABG pO2 (Temp Correct ABG HCO3 ABG O2 Saturation ABG Base Excess Respiration Rate O2 Delivery Device Ventilator Type Vent Mode FiO2 Inspiratory Time PEEP Pressure Support Pressure Control EPAP IPAP BiPAP Sodium Potassium Chloride Carbon Dioxide Anion Gap BUN Creatinine Est GFR ( Amer) Est GFR (Non-Af Amer) BUN/Creatinine Ratio Glucose POC Glucose (mg/dL) Lactic Acid Calcium Total Bilirubin AST ALT Alkaline Phosphatase Total Creatine Kinase CK-MB (CK-2) Troponin I C-Reactive Protein B-Natriuretic Peptide Total Protein Albumin Globulin Albumin/Globulin Ratio Urine Color Urine Appearance Urine pH Ur Specific [place] Urine Protein Urine Ketones Urine Blood Urine Nitrate Urine Bilirubin Urine Urobilinogen Ur Leukocyte Esterase Urine WBC (Auto) Urine RBC (Auto) Urine Bacteria Hyaline Casts Granular Casts Urine Glucose Influenza A (Rapid) Influenza B (Rapid) Imaging: cxr 08/19 ett above susan, bilateral interstitial infiltrates as prior cxr, some increased, possibly more congestion. Assessment: 71y F w/pmhx of Severe COPD on 4-5L Home O2, Severe Pulmonary Hypertension, LV diastolic dysfunction, h/o bio MVR, paroxysmal Atrial fibrillation on AC, GERD, h/o left mastectomy for breast CA 2010 s/p chemo, s/p PPM, anxiety disorder; Recently [place] [facility] for [place] distress, COPD exacerbation, Diastolic heart failure. Code status was discussed and seems she was made DNR/DNI prior to discharge after much talk and she stated she would followup with her PCP about hospice services. Today acute respiratory distress, she asked for EMS and revoked DNR/DNI to daughter, hypoxic on ride to [facility] to 70s. Intubated in ER, hemodyn stable. -Acute COPD exacerbation -Acute on chronic hypercapneic respiratory failure -Acute on chronic hypoxic respiratory failure -Acute on Chronic LV diastolic heart failure -Volume overload -suspect right lower lobe pneumonia vs atelectasis -sepsis / to pneumonia suspected Paroxysmal Afib, s/p PPM bioMVR Anxiety disorder Plan: Neuro- intubated, on propofol for sedation. prn versed for sedation/anxiety q2h. Neurochecks q4h if awake. Delirium precautions. CVS- hemodyn stable. Afib with Pacing at times. Hold pradaxa, will start SQ lovenox therapeutic today instead. Resume amlodipine/Cardizem via ngt. 3+ Edema/ volume overload/pulm congestion, not much urine output with lasix as expected. Cont lasix. Obtain LE duplex for r/o dvt. Pending AM labs for electrolytes. Febrile with RLL basal haziness now, start empiric abx for suspected HCAP given recent hospitalizations. Will need to restart tikosyn for Afib once extubated. Resume Cardizem at 90mg q6h via ngt. check LE duplex b/l. Resp- intubated now, sats 100% on 50%. ABGs reviewed, improved hypoxic and hypercapnea. No wheezing, cont solumedrol 40mg bid, decrease to daily dosing tomorrow. cont nebulizers q4h prn. CXR with more apparent Right lower lobe infiltrate at base. Empiric abx for HCAP. No plan for weaning, still tachypneic. ID- febrile 101.4, wbc pending. CXR with new infiltrate at base. send sputum culture. given recent admission, tx as HCAP. Empiric Zosyn/Vanco (day#1). GI- npo. ngt. PPI PO daily. Renal- BMP pending today. Burnett+. Lasix 40mg iv bid, goal neg balance. Heme- anemia. Hold pradaxa, plan for SQ lovenox 1 mg/kg while intubated, then pradaxa. Endo- fingersticks q6h. Musculsk- bedrest. Pressure ulcer proph. Wounds- none Nutrition- npo DVT prophylaxis: SCDs, SQ lovenox bid GI prophylaxis: PPI po Central Line:- Arterial Line:- Burnett Cathetor: yes Disposition: ICU Code Status: full code Total Critical Care time is 50 minutes, excluding procedures/teaching Bright Subramanian MD [employer]rentice [employer] (Electronically Signed)
[2017-08-20 09:56] LABS: Hematocrit 34 % (35-47); Hemoglobin 10.9 g/dl (12.0-16.0); Mean Corpuscular HGB Conc 32 g/dl (31-36); Mean Corpuscular Hemoglobin 25 pg (27-31); Mean Corpuscular Volume 79 fL (80-97); Mean Platelet Volume 8 um3 (7.4-10.4); Platelet Count 233 10^3/ul (150-450); Red Blood Count 4.33 10^6/ul (4.0-5.4); Red Cell Distribution Width 18 % (10.5-15); White Blood Count 10.1 10^3/ul (3.5-10.8)
[2017-08-20] MEDS ORDERED: Vancomycin per Pharmacy* NOTE FOLLOW UP SCH (10:00)
[2017-08-20 10:03] LABS: EGFR Non-African American 54.3 (>60)
[2017-08-20] MEDS: Midazolam* 1 MG/ML 2 ML VIAL (2 MG) IV PRN ×2 (10:19→12:26)
[2017-08-20] MEDS ORDERED: Potassium Chloride LIQUID* 20 MEQ PACKET PO ONE (10:20)
[2017-08-20] MEDS ORDERED: Vancomycin(*) 1,000 MG in NS 0.9% 250 ML* 250 ML IVPB ONE (10:30)
--- NOTE | 2017-08-20 11:28 | RAD ---
Indication: Shortness of breath. Single frontal view of the chest performed at 0523 hours was reviewed. Comparison is made with previous exam dated August 19, 2017. Cardiomegaly is noted. Airspace disease in the right base which is progressive since previous exam. Left lung field is clear. IMPRESSION: LIKELY RIGHT BASILAR PNEUMONIA. OTHERWISE NO SIGNIFICANT CHANGE SINCE AUGUST 19, 2017.
--- NOTE | 2017-08-20 13:35 | RAD ---
Indication: Bilateral leg edema Duplex Doppler sonography of the deep venous system of both lower extremities was performed. Bilaterally the common femoral veins, proximal greater saphenous veins, proximal deep femoral veins, femoral veins, popliteal veins, posterior tibial veins and peroneal veins appear patent and compressible. IMPRESSION: NO EVIDENCE OF DEEP VENOUS THROMBOSIS OF EITHER LOWER EXTREMITY IS PRESENT.
[2017-08-20] MEDS: Vancomycin(*) 1,000 MG in NS 0.9% 250 ML* 250 ML IVPB SCH (18:19)
[2017-08-20] MEDS: Enoxaparin(*) 80 MG/0.8 ML SYR SUBCUT SCH (21:20)
[2017-08-21] MEDS: Propofol* 100 ML IV SCH ×5 (01:24→20:03)
[2017-08-21] MEDS: Vancomycin(*) 1,000 MG in NS 0.9% 250 ML* 250 ML IVPB SCH (01:25)
[2017-08-21] MEDS: Chlorhexidine MOUTHWASH 0.12%* 15 ML UDC TOPICAL SCH ×5 (03:54→18:23)
[2017-08-21 05:42] LABS: Hematocrit 32 % (35-47); Hemoglobin 10.3 g/dl (12.0-16.0); Mean Corpuscular HGB Conc 32 g/dl (31-36); Mean Corpuscular Hemoglobin 24 pg (27-31); Mean Corpuscular Volume 75 fL (80-97); Mean Platelet Volume 8 um3 (7.4-10.4); Platelet Count 261 10^3/ul (150-450); Red Blood Count 4.27 10^6/ul (4.0-5.4); Red Cell Distribution Width 18 % (10.5-15); White Blood Count 11.1 10^3/ul (3.5-10.8)
[2017-08-21 05:53] LABS: EGFR Non-African American 55.6 (>60)
[2017-08-21] MEDS: Diltiazem TAB* 30 MG PO SCH ×4 (06:11→23:35)
--- NOTE | 2017-08-21 07:52 | RAD ---
INDICATION: Pneumonia COMPARISON: August 20, 2017 TECHNIQUE: An AP portable view obtained at 0602 hours is submitted. FINDINGS: Bones/Soft Tissues: There are no acute bony findings. There is an endotracheal tube in satisfactory position. There is a left-sided chest tube Cardiomediastinal: The cardiomediastinal silhouette is normal. The central pulmonary vessels and interstitium are prominent consistent with interstitial congestion Lungs: There is basilar airspace disease right greater than left. Pleura: There are bilateral pleural effusions right greater than left. Other: None IMPRESSION: INTERSTITIAL CONGESTION. THERE MAY BE A SUPERIMPOSED ACUTE PNEUMONITIS
[2017-08-21] MEDS: Enoxaparin(*) 80 MG/0.8 ML SYR SUBCUT SCH ×2 (08:11→21:08)
[2017-08-21] MEDS: methylPREDNISolone SOD 40 MG* 1 ML VIAL IV SCH (08:12)
[2017-08-21] MEDS: Furosemide IV* 10 MG/ML VIAL (40 MG) IV SCH ×2 (08:13→21:09)
[2017-08-21] MEDS: Sertraline* 50 MG TAB PO SCH (08:21)
[2017-08-21] MEDS: Lansoprazole susp Kit 3 MG/ML (30 MG = 10 ML) G TUBE SCH (08:21)
[2017-08-21] MEDS ORDERED: Vancomycin Trough Check NOTE FOLLOW UP ONE (10:00)
[2017-08-21] MEDS: Midazolam* 1 MG/ML 2 ML VIAL (2 MG) IV PRN ×2 (12:27→21:09)
--- NOTE | 2017-08-21 14:54 | PN ---
Date of Service: 08/21/17 Critical Care Services: Continues on mechanical ventilation for exacerbation of COPD. Wean attempt today was unsuccessfrul. Presumed cause of detrioration is pneumonia or CHF ( receiving both diuretics and antibiotics). Vital Signs: Temp Pulse Resp BP SpO2 FiO2 99.7 F 76 38 138/54 94 50 Physical Exam: Gen: Minimally responsive (on propofol) Lungs: No wheezes, rhonchi, or crackles. Abdomen:Not distended Extremities: 1+ pitting edema left leg. Fluid Balance (Past 24 Hours): 08/21/17 06:59 Intake Total 1621 Output Total 1025 Balance +596 Weight 154 lb Intake: IV Fluids 424 kvo 424 IVPB 509 kvo 509 Medicated IV 578 Propofol 578 Oral 0 Tube Feeding Flush Amount 80 NG Tube Irrigate Amount 30 Output: Urine Burnett 1025 Residual 16 Fr Temperature Probe Labs: 08/21/17 08/21/17 08/21/17 05:05 05:05 05:05 WBC 11.1 H Hgb 10.3 L Hct 32 L MCV 75 L MCH 24 L MCHC 32 Plt Count 261 Sodium 137 Potassium 4.1 Chloride 100 L Carbon Dioxide 32 Anion Gap 5 BUN 30 H Creatinine 0.98 H Est GFR ( Amer) 71.5 Est GFR (Non-Af Amer) 55.6 BUN/Creatinine Ratio 30.6 H Glucose 146 H POC Glucose (mg/dL) Hemoglobin A1c 5.0 Calcium 8.8 Vancomycin Trough Studies: CXR: bibasilar infiltrates with effusions. Sputum growing E. coli Nutrition: Started on tube feedings todat (25 kcal/kg/day) Impression: 1. Remains vent dependent, but may be able to wean very soon. 2. Apparent gram-negative (E. coli) pneumonia, with an element of CHF. Plan: 1. Continue Zosyn, but D/C vancomycin. 2. Continue aggressive diuresis with IV furosemide 3. Daily wean trials Critical Care Time: 40 minutes
[2017-08-22] MEDS: Chlorhexidine MOUTHWASH 0.12%* 15 ML UDC TOPICAL SCH ×6 (00:05→20:45)
[2017-08-22] MEDS: Albuterol/Ipratropium NEB.SOL* Albuterol 2.5 MG/Ipratropium 0.5 MG 3 ML INH PRN ×2 (02:09→12:28)
[2017-08-22] MEDS ORDERED: Zosyn per Pharmacy* NOTE FOLLOW UP PRN (02:59)
[2017-08-22] MEDS ORDERED: Zosyn 3.375 gm X 1 dose, then dose per Pharmacy IVPB ONE ×2 (03:00)
[2017-08-22] MEDS: Propofol* 100 ML IV SCH ×4 (03:44→20:45)
[2017-08-22] MEDS: Acetaminophen ADULT LIQ* 650 MG/20.3 ML UDC PO PRN (03:44)
[2017-08-22 06:14] LABS: Hematocrit 35 % (35-47); Hemoglobin 11.1 g/dl (12.0-16.0); Mean Corpuscular HGB Conc 32 g/dl (31-36); Mean Corpuscular Hemoglobin 24 pg (27-31); Mean Corpuscular Volume 76 fL (80-97); Mean Platelet Volume 8 um3 (7.4-10.4); Platelet Count 260 10^3/ul (150-450); Red Blood Count 4.58 10^6/ul (4.0-5.4); Red Cell Distribution Width 18 % (10.5-15); White Blood Count 21.1 10^3/ul (3.5-10.8)
[2017-08-22] MEDS: Diltiazem TAB* 30 MG PO SCH ×3 (06:25→17:57)
[2017-08-22 07:06] LABS: EGFR Non-African American 68.3 (>60)
[2017-08-22] MEDS: ZOSYN 3.375 GM Q12H per EXTENDED INFUSION IVPB SCH ×4 (07:44→20:50)
--- NOTE | 2017-08-22 07:46 | RAD ---
INDICATION: Pneumonia versus CHF. Short of breath COMPARISON: August 21, 2017 TECHNIQUE: An AP portable view obtained at 06 hours is submitted. FINDINGS: Bones/Soft Tissues: There are no acute bony findings. There is sternotomy. Nasogastric tube passes normally through the mediastinum. There is ventricular tube 1 cm above the susan. There is a cardiac pacemaker. There is prior valvular surgery Cardiomediastinal: The heart is normal in size. Central pulmonary vessels and interstitium are prominent consistent with interstitial congestion. Lungs: There is airspace disease in the right lung base. Acute pneumonitis cannot be excluded although this could be related to infiltrate, atelectasis, pleural fluid, or combination of the 3. Pleura: Bilateral pleural effusions. Other: None IMPRESSION: NO INTERVAL CHANGES. SUSPECT INTERSTITIAL CONGESTION WITH BILATERAL PLEURAL EFFUSIONS. RIGHT BASILAR INFILTRATE CANNOT BE EXCLUDED
[2017-08-22] MEDS: Enoxaparin(*) 80 MG/0.8 ML SYR SUBCUT SCH ×2 (07:50→20:50)
[2017-08-22] MEDS: Lansoprazole susp Kit 3 MG/ML (30 MG = 10 ML) G TUBE SCH (07:51)
[2017-08-22] MEDS: Furosemide IV* 10 MG/ML VIAL (40 MG) IV SCH ×2 (07:51→20:52)
[2017-08-22] MEDS: Midazolam* 1 MG/ML 2 ML VIAL (2 MG) IV PRN (07:52)
[2017-08-22] MEDS: Sertraline* 50 MG TAB PO SCH (07:52)
--- NOTE | 2017-08-22 09:53 | PN ---
Progress Note - Progress Note Date of Service: 08/22/17 Note: Please refer to my consult note on this patient from 07/06/17, during her last hospitalization. The patient was appropriate for hospice services, with a diagnosis of end-stage COPD, and did not want to be on mechanical ventilation, and was discharged home with the expectation that she would be referred to her [facility] hospice, [facility]. Apparently this did not occur, and I am trying to reach Dr. Ruiz to find out why he would not refer this patient without seeing her in the office first. She declined at home and, without the amelioration afforded by hospice and morphine, the patient panicked and returned to the ER here, and is now on mechanical ventilation, unable to be weaned. I am unable to speak with her at present as she is sedated with propofol and unresponsive. I plan to speak with her daughter when she is available, and I spoke with Dr. Alegria about plans for extubation if she is unable to be weaned. She has an e.coli pneumonia and will receive at least 3 days of antibiotics before attempting to extubate. It would serve this patient well if she could survive to discharge and obtain a peaceful, comfortable at home with her local hospice.
--- NOTE | 2017-08-22 10:31 | RAD ---
INDICATION: Right-sided pleural effusion COMPARISON: Same day chest x-ray acquired at 0609 hours that shows density obscuring the right lung base TECHNIQUE: Real time ultrasound images of the right hemithorax were acquired with maldonado scale and Doppler color flow imaging. FINDINGS: There is a small to moderate size right lung pleural effusion visualized with sonography. IMPRESSION: Small to moderate size right-sided pleural effusion as indicated by provided sonographic images.
--- NOTE | 2017-08-22 17:09 | RAD ---
Indication: Post central line placement. Cardiac disease and COPD. Hypercapnic respiratory failure. Comparison: 608 chest radiograph of the same date. RIGHT chest ultrasound of the same date documenting a small pleural effusion. Technique: Upright AP 1638 hours Report: Endotracheal tube tip 1.3 cm from the susan and directed toward the RIGHT mainstem bronchus. The tube should be pulled back approximately 2.5 cm. Nasogastric tube passes to the stomach and outside the [id number] caudally. Unchanged RIGHT larger than LEFT small pleural effusions. Consolidation at the RIGHT lung base appears out of proportion to the small effusion documented on ultrasound raising concern for pneumonia. Negative for pneumothorax. Median sternotomy wires, RIGHT atrial, and RIGHT ventricular level pacemaker leads. Prosthetic aortic valve. Unchanged cardiomegaly. Prominent ill-defined central pulmonary vasculature. Diffuse prominence of interstitial markings. IMPRESSION: 1. The endotracheal tube should be pulled back approximately 2.5 cm. 2. Pulmonary vascular congestion and interstitial edema. 3. Pneumonia at the RIGHT lung base not excluded. 4. No significant change in RIGHT larger than LEFT small pleural effusions.
--- NOTE | 2017-08-22 21:00 | PN ---
Date of Service: 08/22/17 Critical Care Services: On Zosyn for presumed E. coli pneumonia, but CXR shows progressive worsening infltrate at right base along with apparent pleural effusion. Ultrasound of chest showed only small amount of pleural fluid (too risky to tap). Patient remains ventilator dependent. Vital Signs: Temp Pulse Resp BP SpO2 FiO2 100.2 F 60 15 134/43 90 50 Physical Exam: Gen:Unresponsive Lungs:Crackles right base Cardiac: irregular rhythm Abdomen:not distended Extremities: arms covered with ecchymoses. Fluid Balance (Past 24 Hours): 08/22/17 06:59 Intake Total 1144 Output Total 2075 Balance -931 Weight 155 lb Intake: IV Fluids 168 kvo 168 IVPB 364 kvo 364 Medicated IV 267 Propofol 267 Oral Tube Feeding 195 Tube Feeding Flush Amount NG Tube Irrigate Amount 150 Output: Urine Burnett 2075 Residual 16 Fr Temperature Probe Labs: 08/22/17 08/22/17 08/22/17 01:44 05:50 05:50 WBC 21.1 H RBC 4.58 Hgb 11.1 L Hct 35 MCV 76 L MCH 24 L MCHC 32 RDW 18 H Plt Count 260 MPV 8 Sodium 141 Potassium 3.6 Chloride 100 L Carbon Dioxide 32 Anion Gap 9 BUN 30 H Creatinine 0.82 Est GFR ( Amer) 87.9 Est GFR (Non-Af Amer) 68.3 BUN/Creatinine Ratio 36.6 H Glucose 172 H POC Glucose (mg/dL) 162 H Calcium 8.9 08/22/17 08/22/17 12:25 18:56 WBC RBC Hgb Hct MCV MCH MCHC RDW Plt Count MPV Sodium Potassium Chloride Carbon Dioxide Anion Gap BUN Creatinine Est GFR ( Amer) Est GFR (Non-Af Amer) BUN/Creatinine Ratio Glucose POC Glucose (mg/dL) 179 H 154 H Calcium Studies: As mentioned (CXR, ECHO of thorax) Nutrition: Tube feedings Impression: Gram-negative pneumonia with poor response to antibiotics so far. Plan: If patient does not show favorable response to antibiotics, then the plan is to institute "comfort measures" care (per request of the patient's daughter, who is the healthcare proxy). Critical Care Time: 35 minutes
[2017-08-23] MEDS: Chlorhexidine MOUTHWASH 0.12%* 15 ML UDC TOPICAL SCH ×7 (00:08→23:59)
[2017-08-23] MEDS: Diltiazem TAB* 30 MG PO SCH ×5 (00:08→23:59)
[2017-08-23] MEDS: Acetaminophen ADULT LIQ* 650 MG/20.3 ML UDC PO PRN ×2 (00:08→23:59)
[2017-08-23] MEDS: Propofol* 100 ML IV SCH ×5 (01:28→22:01)
[2017-08-23 06:49] LABS: Hematocrit 28 % (35-47); Hemoglobin 9.2 g/dl (12.0-16.0); Mean Corpuscular HGB Conc 33 g/dl (31-36); Mean Corpuscular Hemoglobin 25 pg (27-31); Mean Corpuscular Volume 75 fL (80-97); Mean Platelet Volume 8 um3 (7.4-10.4); Platelet Count 181 10^3/ul (150-450); Red Blood Count 3.77 10^6/ul (4.0-5.4); Red Cell Distribution Width 18 % (10.5-15); White Blood Count 6.8 10^3/ul (3.5-10.8)
[2017-08-23 06:59] LABS: EGFR Non-African American 92.6 (>60)
[2017-08-23] MEDS: ZOSYN 3.375 GM Q12H per EXTENDED INFUSION IVPB SCH ×2 (09:13)
[2017-08-23] MEDS: Enoxaparin(*) 80 MG/0.8 ML SYR SUBCUT SCH ×2 (09:16→19:59)
[2017-08-23] MEDS: Furosemide IV* 10 MG/ML VIAL (40 MG) IV SCH ×2 (09:19→22:01)
[2017-08-23] MEDS: Lansoprazole susp Kit 3 MG/ML (30 MG = 10 ML) G TUBE SCH (09:33)
[2017-08-23] MEDS: Sertraline* 50 MG TAB PO SCH (09:33)
--- NOTE | 2017-08-23 10:57 | RAD ---
Indication: Follow-up pneumonia Single frontal view of the chest performed at 1035 hours was reviewed. Comparison is made with previous exam dated August 22, 2017. No mediastinal shift is noted. Mild cardiomegaly with bilateral pleural effusions are noted. Mild interstitial edema is noted. Overall no changes noted since prior exam. IMPRESSION: RIGHT BASILAR INFILTRATE WITH BILATERAL PLEURAL EFFUSIONS AND INTERSTITIAL EDEMA. NO CHANGES NOTED SINCE AUGUST 22, 2017
--- NOTE | 2017-08-23 11:34 | PRO ---
PROCEDURE NOTE: DATE OF PROCEDURE: 08/22/17 PROCEDURE: Central line insertion. INDICATIONS: This patient is a 71-year-old white female with acute exacerbation of COPD and pneumoni a, who has been managed on mechanical ventilation and because of difficulty with peripheral IV access , a central line was deemed necessary. DESCRIPTION OF PROCEDURE: After appropriate preparation, a 7.5-Syriac triple lumen catheter was inse rted into the right internal jugular vein under ultrasound guidance and advanced into the superior ve na cava. Placement was confirmed by chest x-ray. There were no apparent complications to the proced ure. [id number]/[facility] #: [id number]
[2017-08-23] MEDS: Midazolam* 1 MG/ML 2 ML VIAL (2 MG) IV PRN (12:07)
[2017-08-23] MEDS: ZOSYN 3.375 GM Q8H per EXTENDED INFUSION IVPB SCH ×4 (15:33→23:59)
--- NOTE | 2017-08-23 19:37 | PN ---
Date of Service: 08/23/16 Critical Care Services: Attempt at weaning today was unsuccessful. Has continued fever despite Rx gram- negative pneumonia with Zosyn. Vital Signs: Temp Pulse Resp BP SpO2 FiO2 101.1 F 117 17 121/92 94 50 Physical Exam: Gen: Is awake when off propofol Lungs: scattered rhonchi Extremities: no cyanosis or edema. Fluid Balance (Past 24 Hours): 08/23/17 06:59 Intake Total 2190 Output Total 1700 Balance 490 Weight 157 lb Intake: IV Fluids 328 kvo 328 IVPB 209 kvo 209 Medicated IV 433 Propofol 433 Oral 0 Tube Feeding 910 Tube Feeding Flush Amount 310 NG Tube Irrigate Amount Output: Burnett 1700 Labs: Laboratory Results - last 24 hr 08/22/17 08/23/17 08/23/17 23:56 06:30 06:30 WBC 6.8 RBC 3.77 L Hgb 9.2 L Hct 28 L MCV 75 L MCH 25 L MCHC 33 RDW 18 H Plt Count 181 MPV 8 Sodium 144 Potassium 3.4 L Chloride 101 Carbon Dioxide 41 H* Anion Gap 2 BUN 24 Creatinine 0.63 Est GFR ( Amer) 119.1 Est GFR (Non-Af Amer) 92.6 BUN/Creatinine Ratio 38.1 H Glucose 126 H POC Glucose (mg/dL) 150 H Calcium 8.8 08/23/17 08/23/17 14:20 18:24 WBC RBC Hgb Hct MCV MCH MCHC RDW Plt Count MPV Sodium Potassium Chloride Carbon Dioxide Anion Gap BUN Creatinine Est GFR ( Amer) Est GFR (Non-Af Amer) BUN/Creatinine Ratio Glucose POC Glucose (mg/dL) 131 H 143 H Calcium Studies: CXR: Opacification at right base persists. Sputum now growing Serratia as well as E. coli Nutrition: Tube feedings Impression: Still unable to remove ventilatory support. Chances of successful wean seem poor at this point, considering multiple organisms as source of pneumonia. Plan: Continue daily wean attempts. No reason to add another antibiotic at this time. Critical Care Time: 45 minutes (including time observing patient during the wean ).
[2017-08-24] MEDS: Propofol* 100 ML IV SCH ×4 (01:21→23:14)
[2017-08-24] MEDS: Midazolam* 1 MG/ML 2 ML VIAL (2 MG) IV PRN (02:46)
[2017-08-24] MEDS: Chlorhexidine MOUTHWASH 0.12%* 15 ML UDC TOPICAL SCH ×6 (02:46→23:16)
[2017-08-24] MEDS: Diltiazem TAB* 30 MG PO SCH ×4 (05:37→23:16)
[2017-08-24 06:24] LABS: Hematocrit 29 % (35-47); Hemoglobin 9.7 g/dl (12.0-16.0); Mean Corpuscular HGB Conc 33 g/dl (31-36); Mean Corpuscular Hemoglobin 25 pg (27-31); Mean Corpuscular Volume 76 fL (80-97); Mean Platelet Volume 8 um3 (7.4-10.4); Platelet Count 187 10^3/ul (150-450); Red Blood Count 3.87 10^6/ul (4.0-5.4); Red Cell Distribution Width 18 % (10.5-15); White Blood Count 6.4 10^3/ul (3.5-10.8)
[2017-08-24 06:34] LABS: EGFR Non-African American 120.9 (>60)
[2017-08-24] MEDS: Enoxaparin(*) 80 MG/0.8 ML SYR SUBCUT SCH ×2 (08:07→20:07)
[2017-08-24] MEDS: Lansoprazole susp Kit 3 MG/ML (30 MG = 10 ML) G TUBE SCH (08:07)
[2017-08-24] MEDS: ZOSYN 3.375 GM Q8H per EXTENDED INFUSION IVPB SCH ×6 (08:08→23:16)
[2017-08-24] MEDS: Sertraline* 50 MG TAB PO SCH (08:08)
[2017-08-24] MEDS: Furosemide IV* 10 MG/ML VIAL (40 MG) IV SCH ×2 (08:41→19:58)
[2017-08-24] MEDS ORDERED: NS 0.9% 100 ML* 100 ML ONE (08:43)
[2017-08-24] MEDS: Potassium Chloride IV* 20 MEQ in NS 0.9% 100 ML* 100 ML IVPB SCH ×2 (09:15→11:11)
--- NOTE | 2017-08-24 12:29 | RAD ---
Indication: Follow-up pneumonia. Single frontal view of the chest performed at 1145 hours was reviewed. Comparison is made with previous exam dated August 23, 2017. Persistent right basilar infiltrate with right pleural effusion is noted. Left lung field is clear. Pacemaker leads are in place. ET tube in appropriate position. IMPRESSION: RIGHT BASILAR INFILTRATE AND PNEUMONIA WITH RIGHT PLEURAL EFFUSION NOT SIGNIFICANTLY CHANGED SINCE AUGUST 23, 2017.
--- NOTE | 2017-08-24 13:32 | RAD ---
HISTORY: Pleural effusion COMPARISONS: August 22, 2017 TECHNIQUE: Multiple transverse and longitudinal ultrasound images were obtained of the right hemithorax for localization for thoracentesis. FINDINGS: There is moderate right-sided pleural effusion. The depth from the skin surface to the center of the effusion is 3.56 cm. The site was marked IMPRESSION: RIGHT PLEURAL EFFUSION, MARKED FOR THORACENTESIS.
[2017-08-24 15:09] LABS: EGFR Non-African American 133.2 (>60)
[2017-08-24] MEDS: Acetaminophen ADULT LIQ* 650 MG/20.3 ML UDC PO PRN ×2 (17:46→23:16)
--- NOTE | 2017-08-24 21:42 | PN ---
Date of Service: 08/24/17 Critical Care Services: Patient continues with low grade fevers - ultrasound of right chest shows more fluid than previous exam. Vital Signs: Temp Pulse Resp BP SpO2 FiO2 100.8 F 105 16 133/78 94 40 Physical Exam: Gen: Eyes open but unresponsive Lungs: Scattered rhonchi Extremities: no cyanosis or edema. Fluid Balance (Past 24 Hours): 08/24/17 06:59 Intake Total 1639 Output Total 2350 Balance -711 Weight 154 lb Intake: IV Fluids 80 kvo 80 IVPB 329 ABX - ZOSYN KCL kvo 329 Medicated IV 442 Propofol 442 Oral Tube Feeding 677 Tube Feeding Flush Amount 111 NG Tube Irrigate Amount Output: Burnett 2350 Labs: 08/24/17 08/24/17 08/24/17 00:50 05:48 05:48 WBC 6.4 Hgb 9.7 L Hct 29 L MCV 76 L MCH 25 L MCHC 33 RDW 18 H Plt Count 187 Sodium 144 Potassium 2.9 L Chloride 97 L Carbon Dioxide 45 H* Anion Gap 2 BUN 20 Creatinine 0.50 L Est GFR ( Amer) 155.5 Est GFR (Non-Af Amer) 120.9 BUN/Creatinine Ratio 40.0 H Glucose 140 H POC Glucose (mg/dL) 182 H Calcium 8.6 08/24/17 08/24/17 08/24/17 05:58 12:09 14:45 WBC RBC Hgb Hct MCV MCH MCHC RDW Plt Count MPV Sodium 145 Potassium 4.8 D Chloride 100 L Carbon Dioxide 44 H* BUN 18 Creatinine 0.46 L BUN/Creatinine Ratio 39.1 H Glucose 138 H POC Glucose (mg/dL) 149 H 124 H Calcium 8.7 Studies: CXR: Right sided basilar infltrate persists. Nutrition: Tube feedings Impression: Gram negative pneumonia responding poorly to antibotics. Patient is chronically illl and elderly, and seems unlikely to survive this condition. Plan: Consider tapping righ-sided parapneumonic effusion to r/o empyema. Otherwise, continue present management regimen. I am speaking with the daughter about end- of-life decisions.
[2017-08-25] MEDS: Chlorhexidine MOUTHWASH 0.12%* 15 ML UDC TOPICAL SCH ×6 (03:18→23:27)
[2017-08-25] MEDS: Propofol* 100 ML IV SCH ×3 (04:59→20:28)
[2017-08-25] MEDS: Diltiazem TAB* 30 MG PO SCH ×4 (06:25→23:27)
[2017-08-25 06:34] LABS: Hematocrit 30 % (35-47); Hemoglobin 9.9 g/dl (12.0-16.0); Mean Corpuscular HGB Conc 33 g/dl (31-36); Mean Corpuscular Hemoglobin 25 pg (27-31); Mean Corpuscular Volume 76 fL (80-97); Mean Platelet Volume 8 um3 (7.4-10.4); Platelet Count 201 10^3/ul (150-450); Red Cell Distribution Width 18 % (10.5-15); White Blood Count 5.2 10^3/ul (3.5-10.8)
[2017-08-25 06:42] LABS: EGFR Non-African American 129.5 (>60)
[2017-08-25] MEDS: Enoxaparin(*) 80 MG/0.8 ML SYR SUBCUT SCH ×2 (08:33→20:01)
[2017-08-25] MEDS: ZOSYN 3.375 GM Q8H per EXTENDED INFUSION IVPB SCH ×6 (08:33→23:27)
[2017-08-25] MEDS: Sertraline* 50 MG TAB PO SCH (08:34)
[2017-08-25] MEDS: Furosemide IV* 10 MG/ML VIAL (40 MG) IV SCH (09:00)
[2017-08-25] MEDS: Lansoprazole susp Kit 3 MG/ML (30 MG = 10 ML) G TUBE SCH (09:01)
--- NOTE | 2017-08-25 10:15 | RAD ---
Indication: Evaluate pleural effusion on the right. Single frontal view of the chest performed at 0947 hours was reviewed. Comparison is made with previous exam dated August 24, 2017. No mediastinal shift is noted. Heart is of normal size and configuration. Right pleural effusion with right basilar atelectasis is noted. Left lung field is clear. IMPRESSION: RIGHT PLEURAL EFFUSION WITH RIGHT BASE ATELECTASIS. LEFT LUNG FIELD IS CLEAR.
[2017-08-25] MEDS ORDERED: LORazepam INJ* 2 MG/ML 1 ML VIAL ONE (11:19)
--- NOTE | 2017-08-25 19:11 | PN ---
Date of Service: 08/25/17 Critical Care Services: Patient remains on ventilator - all attempts to wean have been unsuccessful. Also has low-grade fever but no apparent source (other than the lungs). Mental status fluctuates between unresponsiveness and some recognition of the surroundings. Vital Signs: Temp Pulse Resp BP SpO2 FiO2 100.9 F 109 20 137/75 96 60 Physical Exam: Gen:Unresponsive HEENT:Pupils midposotion and reactive Lungs:Coarse rhonchi. Diminished breath sounds at right base. Abdomen:Not distended Extremities:No cyanosis or edema. Fluid Balance (Past 24 Hours): 08/25/17 06:59 Intake Total 1926.8 Output Total 775 Balance +1151.8 Weight 157 lb Intake: IV Fluids 116 kvo 116 IVPB 520 ABX - ZOSYN 105 KCL 205 kvo 210 Medicated IV 342.8 Propofol 342.8 Oral Tube Feeding 828 Tube Feeding Flush Amount 120 Output: Burnett 775 Labs: 08/25/17 08/25/17 06:14 06:14 WBC 5.2 RBC 4.00 Hgb 9.9 L Hct 30 L MCV 76 L MCH 25 L MCHC 33 RDW 18 H Plt Count 201 MPV 8 Sodium 144 Potassium 3.3 L D Chloride 99 L Carbon Dioxide 45 H* Anion Gap Not Reportable BUN 17 Creatinine 0.47 L Est GFR ( Amer) 166.6 Est GFR (Non-Af Amer) 129.5 BUN/Creatinine Ratio 36.2 H Glucose 139 H POC Glucose (mg/dL) Calcium 8.8 Studies: CXR - No real change from film yesterday. Nutrition: Tube feedings Impression: Persistent ventilator dependence witrh no signs of tolerating spontaneous breathing. Prognosis here is poor. Plan: If patient continues to be unable to wean, speak with daughter (who has unrealistic expectations) about tracheostomy and end-of-life decisions. Critical Care Time: 35 minutes
[2017-08-26] MEDS: Propofol* 100 ML IV SCH ×4 (02:16→22:41)
[2017-08-26] MEDS: Chlorhexidine MOUTHWASH 0.12%* 15 ML UDC TOPICAL SCH ×6 (03:32→23:27)
[2017-08-26] MEDS: Vancomycin(*) 1,000 MG in NS 0.9% 250 ML* 250 ML IVPB SCH (04:21)
[2017-08-26 05:38] LABS: EGFR Non-African American 123.5 (>60)
[2017-08-26] MEDS: Diltiazem TAB* 30 MG PO SCH ×3 (06:11→18:00)
--- NOTE | 2017-08-26 07:42 | RAD ---
HISTORY: Respiratory failure, COPD exacerbation, pneumonia COMPARISONS: August 25, 2017 VIEWS: 1: frontal portable view of the chest at 6:00 AM. The patient is obliqued to the right. FINDINGS: LINES AND TUBES: An endotracheal tube is noted with the tip overlying the trachea between the clavicles and the susan. A gastric tube is noted. The tip is below the [id number] of the current examination, but is below the diaphragm. A right internal jugular venous catheter is noted with the tip overlying the expected location of the superior vena cava. A left-sided pacemaker is noted. CARDIOMEDIASTINAL SILHOUETTE: A prosthetic heart valve is noted. The cardiac mediastinal silhouette is stable accounting for technique and positioning. PLEURA: There is blunting of the right costophrenic angle. LUNG PARENCHYMA: There is confluent alveolar opacification of the right lower lung. ABDOMEN: The upper abdomen is clear. There is no subphrenic gas. BONES AND SOFT TISSUES: The patient is status post median sternotomy. IMPRESSION: 1. LIMITED STUDY. 2. LINES AND TUBES ABOVE. 3. RIGHT LOWER LUNG ATELECTASIS VERSUS CONSOLIDATION WITH A SMALL RIGHT PLEURAL EFFUSION.
[2017-08-26] MEDS: ZOSYN 3.375 GM Q8H per EXTENDED INFUSION IVPB SCH ×4 (07:52→15:11)
[2017-08-26] MEDS: Enoxaparin(*) 80 MG/0.8 ML SYR SUBCUT SCH ×2 (07:53→19:45)
[2017-08-26] MEDS: Lansoprazole susp Kit 3 MG/ML (30 MG = 10 ML) G TUBE SCH (07:55)
[2017-08-26] MEDS: Sertraline* 50 MG TAB PO SCH (07:55)
--- NOTE | 2017-08-26 18:32 | PN ---
Date of Service: 08/26/17 Critical Care Services: Remains on ventilator. Does not respond to verbal commands, even when off propofol. Vital Signs: Temp Pulse Resp BP SpO2 FiO2 100.8 F 95 14 110/61 98 45 Physical Exam: Gen:Unresponsive Lungs: Coarse rhonchi Abdomen:Not distended Extremities: No cyanosis or edema Fluid Balance (Past 24 Hours): 08/26/17 06:59 Intake Total 1587 Output Total 575 Balance +1012 Weight Intake: IV Fluids 231 ABX - ZOSYN 100 kvo 131 IVPB 215 ABX - ZOSYN 215 KCL kvo Medicated IV 306 Propofol 306 Tube Feeding 715 Tube Feeding Flush Amount 120 Output: Burnett 575 Labs: 08/26/17 05:17 Sodium 144 Potassium 3.3 Chloride 99 Carbon Dioxide 42 Anion Gap 3 BUN 18 Creatinine 0.49 L Glucose 161 H POC Glucose (mg/dL) Calcium 8.9 Iron 30 L TIBC 266 % Saturation 11 L Unsat Iron Binding 236 Vitamin B12 513 Studies: CXR: no real change from prior film Nutrition: Tube feeding Impression: Continued ventilator dependency. It is unlikely that the patient will be removed from the ventilator in the near future (if at all), and I have spoken to the daughter about either instituting comfort measures or performing a tracheostomy in anticipation of placing the patient in a long-term vent facility (the first option is the one I recommended) -- she is considering these options (and is reluctant to make a decision). Plan: Continue present level of care pending daughter's decision about end-of-life issues. Critical Care Time: 40 minutes (including time spent in discussion with the daughter).
[2017-08-26] MEDS ORDERED: Potassium Chloride IV* 40 MEQ in NS 0.9% 250 ML* 250 ML IVPB ONE (19:30)
[2017-08-26] MEDS ORDERED: KCL 20 MEQ/100 ML IVPREMIX* 20 MEQ/100 ML BAG IV SCH (20:00)
[2017-08-27] MEDS: Diltiazem TAB* 30 MG PO SCH ×3 (00:19→13:44)
[2017-08-27] MEDS: ZOSYN 3.375 GM Q8H per EXTENDED INFUSION IVPB SCH ×6 (00:19→16:12)
[2017-08-27] MEDS: Chlorhexidine MOUTHWASH 0.12%* 15 ML UDC TOPICAL SCH ×4 (03:45→16:12)
[2017-08-27] MEDS: Propofol* 100 ML IV SCH ×2 (04:40→11:06)
[2017-08-27 06:39] LABS: EGFR Non-African American 129.5 (>60)
--- NOTE | 2017-08-27 07:26 | RAD ---
INDICATION: Pneumonia COMPARISON: August 26, 2017 TECHNIQUE: An AP portable view obtained at 06 hours is submitted. FINDINGS: Bones/Soft Tissues: There are no acute bony findings. Tubes and catheters are unchanged with the endotracheal tube measuring in satisfactory position. Cardiomediastinal: The cardiomediastinal silhouette is normal. There is diffuse increased interstitial markings likely related to interstitial congestion Lungs: There are no infiltrates. There is infiltrate in the right lung base. Pleura: There is a small right-sided effusion. Other: None IMPRESSION: INTERSTITIAL CONGESTION WITH FOCAL ALVEOLAR CHANGE RIGHT LUNG BASE MOST CONSISTENT WITH SUPERIMPOSED RIGHT BASILAR INFILTRATE. NO INTERVAL CHANGES.
[2017-08-27] MEDS: Enoxaparin(*) 80 MG/0.8 ML SYR SUBCUT SCH (08:09)
[2017-08-27] MEDS: Lansoprazole susp Kit 3 MG/ML (30 MG = 10 ML) G TUBE SCH (08:10)
[2017-08-27] MEDS: Sertraline* 50 MG TAB PO SCH (08:10)
[2017-08-27] MEDS: Acetaminophen ADULT LIQ* 650 MG/20.3 ML UDC PO PRN (08:55)
[2017-08-27] MEDS ORDERED: LORazepam INJ* 2 MG/ML 1 ML VIAL ONE ×2 (13:09→14:37)
[2017-08-27] MEDS ORDERED: LORazepam INJ* 2 MG/ML 1 ML VIAL IV PUSH ONE ×2 (13:10→14:34)
[2017-08-27] MEDS ORDERED: Morphine INJ* 10 MG/ML 1 ML CARPUJECT ONE ×2 (13:10→14:37)
[2017-08-27] MEDS ORDERED: Morphine INJ* 10 MG/ML 1 ML CARPUJECT IV ONE ×3 (13:10→14:34)
[2017-08-27] MEDS ORDERED: Morphine PCA ADULT* 5 MG/ML 30 ML ONE (13:10)
[2017-08-27] MEDS ORDERED: LORazepam VIAL (for drip)* 100 MG in D5W 50 ML BAG* 50 ML IVPB SCH (14:00)
[2017-08-27] MEDS ORDERED: Morphine PCA 5 MG/ML * Titrate per Protocol PCA SCH (14:00)
[2017-08-27 14:09] VITALS: BP 128/71
--- NOTE | 2017-08-28 05:20 | DS ---
SUMMARY: DATE OF ADMISSION: 08/19/17 DATE OF : 08/27/17 HISTORY OF PRESENT ILLNESS: The patient is a 72-year-old female with severe COPD (on home O2), who is admitted with respiratory failure and a pneumonia involving the right lower lobe and required intubation and mechanical ventilation. Patient was maintained on the ventilator and eventually grew 2 g negative organisms from the sputum and was treated with Zosyn. There was no improvement in lung function and patient was unable to wean from mechanical ventilation. Because of the poor prognosis and poor recovery and history of severe COPD, patient's daughter arrived at a decision to remove the endotracheal tube and mechanical ventilation and institute comfort measures. This was done on 08/27/17 and the afternoon, patient was pronounced at 2: 55 p.m. on that day. Patient's daughter was present at the time of . No autopsy is to be performed. FINAL DIAGNOSES: 1. End-stage chronic obstructive pulmonary disease. 2. Gram-negative pneumonia involving the right lung. 3. Respiratory failure with hypercapnia and hypoxia. 4. Atrial fibrillation. [id number]/[facility] #: [id number] [facility]
== END 2017-08-27 14:55 | disposition expired | DRG 870 ==
LOC: ED 13:01 → ICU 13:50
PROVIDERS: ADMIT Internal Medicine Critical Care Medicine; ATTEND Internal Medicine Critical Care Medicine
PROC: 5A1955Z Respiratory Ventilation, Greater than 96 Consecutive Hours (ICD-10-PCS; principal; 2017-08-19)
PROC: 0BH17EZ Insertion of Endotracheal Airway into Trachea, Via Natural or Artificial Opening (ICD-10-PCS; 2017-08-19)
PROC: 02HV33Z Insertion of Infusion Device into Superior Vena Cava, Percutaneous Approach (ICD-10-PCS; 2017-08-22)
DX: A41.9 Sepsis, unspecified organism (principal); J96.21 Acute and chronic respiratory failure with hypoxia; I50.33 Acute on chronic diastolic (congestive) heart failure; J44.0 Chronic obstructive pulmonary disease with (acute) lower respiratory infection; J15.5 Pneumonia due to Escherichia coli; I11.0 Hypertensive heart disease with heart failure; I27.20 Pulmonary hypertension, unspecified; E87.70 Fluid overload, unspecified; I48.0 Paroxysmal atrial fibrillation; J96.22 Acute and chronic respiratory failure with hypercapnia; J44.1 Chronic obstructive pulmonary disease with (acute) exacerbation; G47.30 Sleep apnea, unspecified; K21.9 Gastro-esophageal reflux disease without esophagitis; F41.9 Anxiety disorder, unspecified; F32.9 Major depressive disorder, single episode, unspecified; K44.9 Diaphragmatic hernia without obstruction or gangrene; D64.9 Anemia, unspecified; M81.0 Age-related osteoporosis without current pathological fracture; K64.9 Unspecified hemorrhoids; M41.9 Scoliosis, unspecified; Z98.42 Cataract extraction status, left eye; Z98.41 Cataract extraction status, right eye; Z99.81 Dependence on supplemental oxygen; Z88.1 Allergy status to other antibiotic agents; Z88.8 Allergy status to other drugs, medicaments and biological substances; Z91.09 Other allergy status, other than to drugs and biological substances; Z95.810 Presence of automatic (implantable) cardiac defibrillator; Z82.49 Family history of ischemic heart disease and other diseases of the circulatory system; Z87.891 Personal history of nicotine dependence; Z85.3 Personal history of malignant neoplasm of breast; Z92.21 Personal history of antineoplastic chemotherapy; Z95.4 Presence of other heart-valve replacement; Z90.12 Acquired absence of left breast and nipple; Z91.013 Allergy to seafood; Z83.6 Family history of other diseases of the respiratory system
CPT/HCPCS: 36415; 36600; 71045; 76604; 80048; 80053; 80202; 81003; 81015; 82550; 82553; 82607; 82803; 83036; 83540; 83550; 83605; 83735; 83880; 84484; 85025; 85027; 85379; 85610; 85730; 86140; 87040; 87070; 87077; 87150; 87186; 87205; 87502; 87641; 92950; 93005; 93970; 94002; 94003; 94640; 94760; 99285; A9270-GY; J0330; J1650; J1940; J2060; J2250; J2270; J2543; J2704; J2920; J2930; J3370; J3480